=== PATIENT | male | born 1970 | race Caucasian/White ===

== ENCOUNTER 2016-12-25 07:27 | Inpatient (IN) | payer OTHER ==
[2016-12-25] MEDS ORDERED: ASPIRIN EC 325 MG TAB PO ONE ×2 (07:31→07:52)
[2016-12-25] MEDS ORDERED: diphenhydrAMINE 25 MG CAP PO ONE ×2 (07:31→07:52)
[2016-12-25] MEDS ORDERED: DIAZEPAM 5 MG TAB PO ONE (07:31)
[2016-12-25] MEDS ORDERED: FAMOTIDINE 20 MG TAB PO ONE (07:31)
[2016-12-25] MEDS ORDERED: NS 1,000 ML IV ONE (07:31)
--- NOTE | 2016-12-25 07:48 | CPEKG ---
Heart Rate: 62 RR Interval: 968 P-R Interval: 196 QRSD Interval: 114 QT Interval: 408 QTC Interval: 415 P [place]: 22 QRS [place]: -5 T Wave [place]: 34 EKG Severity - ABNORMAL ECG - EKG Impression: SINUS ARRHYTHMIA, RATE 52-69 EKG Impression: INCOMPLETE RIGHT BUNDLE BRANCH BLOCK Electronically Signed By: Joseph Gandhi 25-Dec-2016 13:48:06
[2016-12-25] MEDS ORDERED: FAMOTIDINE 20 MG TAB ONE (07:52)
[2016-12-25] MEDS ORDERED: DIAZEPAM 5 MG TAB ONE (07:53)
[2016-12-25 08:07] LABS: % IMMATURE GRANULYOCYTES 0.1 % (0.0-1.1); ABSOLUTE IMMATURE GRANULOCYTES 0.01 10^3/uL (0.00-0.10); ADD DIFF? NO; ADD MORPH? NO; ADD SCAN? NO; ATYPICAL LYMPHOCYTE FLAG 10 (0-99); FRAGMENT RBC FLAG 0 (0-99); HEMATOCRIT 45.7 % (40.0-51.0); LEFT SHIFT FLG 0 (0-99); LIPEMIA HEMOLYSIS FLAG 90 (0-99); MEAN CELL HEMOGLOBIN 30.3 pg (27.9-34.1); MEAN CELL VOLUME 86.6 fL (81.5-99.8); MEAN PLATELET VOLUME 9.6 fL (8.7-11.7); PLATELET CLUMPS FLAG 0 (0-99); PLATELET COUNT 212 10^3/uL (150-400); RED BLOOD CELL COUNT 5.28 10^6/uL (4.40-6.38); RED CELL DISTRIBUTION WIDTH 12.4 % (11.5-15.2)
[2016-12-25 08:14] LABS: INR 1.03 (0.83-1.16); PROTIME(PATIENT) 13.4 SEC (12.0-15.0)
[2016-12-25 08:29] LABS: ANION GAP 12 mEq/L (8-16); CALCIUM 9.6 mg/dL (8.5-10.4); CARBON DIOXIDE 23 mEq/l (22-31); CHLORIDE 107 mEq/L (97-110); CHOLESTEROL 211 mg/dL (140-200); CHOLESTEROL/HDL RATIO 5.55 RATIO (1.00-4.97); CREATININE 0.9 mg/dL (0.7-1.3); GLOMERULAR FILTRATION RATE > 60; GLUCOSE 110 mg/dL (70-100); HIGH DENSITY LIPOPROTEIN 38 mg/dL (40-65); LDL/HDL RATIO 3.61 RATIO (1.00-3.64); LOW DENSITY LIPOPROTEIN 137 mg/dL (70-100); MAGNESIUM 2.1 mg/dL (1.6-2.3); NON-HIGH DENSITY LIPOPROTEIN 173 mg/dL (90-129); POTASSIUM 4.9 mEq/L (3.5-5.2); SODIUM 142 mEq/L (134-144); TRIGLYCERIDE 183 mg/dL (40-150); VERY LOW DENSITY LIPOPROTEINS 36 mg/dL (8-25)
[2016-12-25] MEDS ORDERED: VERAPAMIL 5 MG/2 ML VIAL ONE (09:08)
[2016-12-25] MEDS ORDERED: IOPAMIDOL (ISOVUE-370) 150 ML BTL IV ONE ×2 (09:08→09:49)
[2016-12-25] MEDS ORDERED: HEPARIN 10,000 UNIT/10 ML MDV ONE (09:08)
[2016-12-25] MEDS ORDERED: MIDAZOLAM 2 MG/2 ML VIAL ONE (09:08)
[2016-12-25] MEDS ORDERED: fentaNYL 100 MCG/2 ML INJ ONE (09:08)
[2016-12-25] MEDS ORDERED: LIDOCAINE 1% 30 ML SDV ONE ×2 (09:08→09:23)
--- NOTE | 2016-12-25 09:23 | PDDXCAT ---
Diagnostic Cath Note - . Date: 12/25/16 Intervention: none *Procedure 1. selective coronary angiography 2. left heart catheterization 3. left ventriculogram Indication: CCS Class III angina, high-risk stress test, NYHA III symptoms. Access: Right radial artery (a plethysmography trace assisted Espinoza's Test was used to document dual artery supply to the hand and index finger prior to access ). *Materials Left Heart Cath size: 5F Left Heart Cath materials: JL3.5, JR4.0, Gallo Right, AL1, pigtail *Findings-Selective Coronary Angiography LM: The left main is ~6 mm in size and bifurcates into an LAD and circumflex system. There is no significant disease identified. LAD: The proximal LAD is ~5 mm in size. There is a 99% stenosis of the LAD and LAD diagonal with CELESTINA III flow. LCX: There is no evidence of flow-limiting disease with CELESTINA III flow throughout. RCA: The right coronary artery is ~3 mm in size and arises anomalously and anteriorly. There are right to left collaterals to the proximal LAD. Maximal luminal stenosis of 30% in the proximal vessel and 80% in the mid RCA with CELESTINA III flow. *Findings-Left Heart Catheterization EDP: 25 mmHg LVEF: 50% AO: 132/91/109 mmHg LVG: There is mild anterior hypokinesis. The sinus of Valsalva are enlarged consistent with aneurysm. There is no zaid evidence of dissection. There is moderate MR on pressurized injection likely related to the position of the catheter. *Summary Complications: None Estimated blood loss: <50ml Closure method: TR Band Assessment/Conclusion: 1. Severe and flow-limiting multi-vessel coronary artery disease including 99% stenosis of the LAD and first LAD diagonal and 80% mid RCA lesions. The patient should have formal consultation with Dr. Barragan to discuss the risk/benefit of a bypass surgery with REED-LAD, rSVG-Diagonal and rSVG to RCA. 2. Incidentally noted was enlarged sinus of Valsalva that may be consistent with aneurysm. I have ordered a CT thoracic angiogram with 3D reconstruction for further evaluation. An echocardiogram revealed a thoracic aortic aneurysm at 4.5 cm with a bicuspid aortic valve. There was no evidence of aortic stenosis , insufficiency or mitral valve pathology. 3. There was mitral regurgitation that was likely catheter induced or secondary to pressurized injection. There was no significant mitral regurgitation on echo. 4. The patient should have the aortic root replaced at minimum if confirmed to be above 4.5. Consider reducing the size of the sinus of Valsalva as well.
--- NOTE | 2016-12-25 14:46 | ECHO ---
[id number] + + [address] : : [place] [address] : : [phone] + + Adult Echocardiographic Report + ------+ :Name: ANTWAN MANUEL JStudy Date: 12/25/2016 01:50 PM : : Hospital Admission Number: [id number] Jaime n: KAIC: :: 1970 Gender: Male : :Age: 46 yrs Race: WH : :Reason For Study: Chest Pain : + ------+ MMode/2D Measurements \T\ Calculations IVSd: 1.2 cm LVIDd: 4.7 cm FS: 41.2 % Ao root diam: LVPWd: 1.2 cm LVIDs: 2.7 cm EDV(Teich): 4.2 cm 100.8 ml ESV(Teich): 28.2 ml EF(Teich): 72.0 % LVLd ap4: 8.3 cm SV(MOD-sp4): EDV(MOD-sp4): 57.0 ml 80.0 ml LVLs ap4: 7.0 cm ESV(MOD-sp4): 23.0 ml EF(MOD-sp4): 71.3 % Normal Measurement Values: + + :LVIDd (3.5-5.7cm) IVSd (0.6-1.1cm) LVPWd (0.6-1.1cm) Aortic Root (2.0-3.7cm)Left Atrium (1.5-4.0cm): :LV Vol(d) (76-115ml) LV Vol(s) (29-48ml) Ejec Fraction (50-65%)PV Navi (0.6- 1.2m/s) TV Navi (0.4-1.0m/s) : :MV E Navi (0.8-1.0m/s)MV A Navi (0.3-1.0m/s)LVOT Navi (0.7-1.2m/s) Asc Ao Navi ( 0.9-1.8m/s) : + + Doppler Measurements \T\ Calculations MV E max navi: 72.1 cm/sec Ao mean P.8 mmHg MV A max navi: 50.3 cm/sec Ao V2 mean: 92.9 cm/sec MV E/A: 1.4 Ao V2 VTI: 27.5 cm Left Ventricle The left ventricle is normal in size and function. There is normal left ventricular wall thickness. Left ventricular systolic function is normal. Ejection Fraction = 65-70%. No regional wall motion abnormalities noted. Right Ventricle The right ventricle is normal in size and function. Atria The left atrial size is normal. Right atrial size is normal. The interatrial septum is intact with no evidence for an atrial septal defect. Mitral Valve The mitral valve is normal in structure and function. There is no evidence of mitral valve prolapse. There is no mitral valve stenosis. There is trace mitral regurgitation. Tricuspid Valve Normal tricuspid valve. There is trace to mild tricuspid regurgitation. Aortic Valve The aortic valve is bicuspid. AV max PG is 7mmHG. AV mean PG is 4mmHG. Pulmonic Valve The pulmonic valve is normal in structure and function. There is no pulmonic valvular regurgitation. Great Vessels Moderate aortic root dilatation. Moderately dilated ascending aorta. Pericardium/Pleural There is no pericardial effusion. Conclusion A complete two-dimensional transthoracic echocardiogram was performed (2D, M-mode, Doppler and color flow Doppler). The left ventricle is normal in size and function. Left ventricular systolic function is normal. Ejection Fraction = 65-70%. There is trace mitral regurgitation. There is trace to mild tricuspid regurgitation. The aortic valve is bicuspid. AV max PG is 7mmHG. AV mean PG is 4mmHG. aortic root dilatation. Moderate aortic root dilatation. Moderately dilated ascending aorta. Recommend CT of the aorta with 3 dimensional reconstruction to evaluate size prior to planned bypass surgery. Final Reading Physician: Maykel Estrada signed on 12/25/2016 02:45 PM Ordering Physician: Joseph Gandhi Performed By: Camila Child RDCS
--- NOTE | 2016-12-25 16:36 | GCON ---
[f rep st] CONSULTATION The patient was seen at the request of Dr. Gandhi with the patient's permission. IMPRESSION: 1. Unstable angina with severe 3-vessel disease. 2. Bicuspid aortic valve with aortopathy. RECOMMENDATIONS: This gentleman should undergo urgent coronary artery revascularization preferably with arterial conduits, which will be scheduled for morning. He was noted to have a 4.7 cm ascendin g aorta on echo. This will be confirmed with CT. His sinuses are somewhat enlarged. We will evalu ate that for either a Rigoberto procedure or just a tube graft from the sinotubular junction. His bicus pid valve has a gradient of 7 and has no regurgitation and it actually looks quite pliable and very functional. Risks and complications were reviewed at length with the patient and his . All que stions were addressed. Quoted mortality was less than 1%. All of the risks for consent were review ed, including stroke, bleeding, infection and . CHIEF COMPLAINT: This gentleman presented with what was initially thought to be pleuritic pain; how ever, he developed angina with 4 step elevation. He underwent a stress test which was markedly abno rmal and underwent urgent coronary catheterization by Dr. Gandhi with 3-vessel disease. Please see cath report. He was referred for surgical intervention. CT scan is pending. MEDICAL HISTORY: Positive only for appendectomy, shoulder surgery. ALLERGIES: Denied. MEDICATIONS: None on admission. SOCIAL HISTORY: He does not smoke. 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 REVIEW OF SYSTEMS: At the present time, he denies any other symptoms. All 10 systems interrogated. PHYSICAL EXAMINATION: GENERAL: This is a slightly overweight young gentleman lying supine in bed i n no apparent distress. Alert, oriented and accompanied by his . VITAL SIGNS: 120/80, pulse 7 6, respirations 14, O2 saturation was 93% on room air. HEENT: Normocephalic. PERRLA. EOMI. NECK : Without bruit, adenopathy or thyromegaly. HEART: Rate is regular. LUNGS: Clear. He does have a 2/6 systolic ejection murmur across the precordium. ABDOMEN: Soft, nontender. Bowel sounds are active. EXTREMITIES: Pedal pulses are 2+ and symmetrical. Please see the cath report for details. /[id number]/MODL
[2016-12-25 16:46] LABS: HEMOGLOBIN A1C 5.5 % (4.0-6.0)
[2016-12-25] MEDS ORDERED: IOPAMIDOL (ISOVUE 370) 100 ML BTL IV ONE (17:55)
[2016-12-25] MEDS: MUPIROCIN 2% 22 GM OINT NS SCH (22:35)
[2016-12-26 04:51] LABS: ANION GAP 10 mEq/L (8-16); CALCIUM 9.3 mg/dL (8.5-10.4); CARBON DIOXIDE 24 mEq/l (22-31); CHLORIDE 107 mEq/L (97-110); CREATININE 0.9 mg/dL (0.7-1.3); GLOMERULAR FILTRATION RATE > 60; GLUCOSE 105 mg/dL (70-100); POTASSIUM 4.3 mEq/L (3.5-5.2); SODIUM 141 mEq/L (134-144)
[2016-12-26] MEDS ORDERED: NOREPINEPHRINE BITARTRATE 16 MG in NS 250 ML IV ONE (06:00)
[2016-12-26] MEDS ORDERED: NS 1,000 ML IV ONE (06:00)
[2016-12-26] MEDS ORDERED: SODIUM BICARBONATE 20 MEQ, LIDOCAINE 1% 10 ML in NORMOSOL-R 1,000 ML MISC ONE (06:00)
[2016-12-26] MEDS ORDERED: ceFAZolin 2 GM/DEXTROSE 100 ML IV ONE (06:00)
[2016-12-26] MEDS ORDERED: CITRATE DEXTROSE SOLN 500 ML BAG MISC ONE (06:00)
[2016-12-26] MEDS ORDERED: PHENYLEPHRINE HCL 50 MG in NS 250 ML IV ONE (06:00)
[2016-12-26] MEDS ORDERED: INSULIN REGULAR HUMAN 100 UNIT in NS 100 ML IV ONE (06:00)
[2016-12-26] MEDS ORDERED: AMINOCAPROIC ACID 5 GM/20 ML VIAL IV ONE (06:00)
[2016-12-26] MEDS ORDERED: niCARdipine/NACL 200 ML IV SCH (06:00)
[2016-12-26] MEDS ORDERED: VERAPAMIL 5 MG, NITROGLYCERIN 2.5 MG, HEPARIN 500 UNIT, SODIUM BICARBONATE 0.2 MEQ in L... MISC ONE (06:00)
[2016-12-26] MEDS ORDERED: CHLORHEXIDINE GLUC HIBICLENS 118 ML BTL TP SCH (06:00)
[2016-12-26] MEDS ORDERED: MUPIROCIN 2% 22 GM OINT NS ONE (06:00)
[2016-12-26] MEDS ORDERED: MANNITOL 25% 12.5 GM/50 ML VIAL IV ONE (06:00)
[2016-12-26] MEDS ORDERED: PROTAMINE SULFATE 50 MG/5 ML VIAL IVP ONE ×2 (06:38→12:18)
[2016-12-26] MEDS ORDERED: POTASSIUM Cl (KCl) 20 MEQ/50 ML BAG IV ONE (06:38)
[2016-12-26] MEDS ORDERED: MILRINONE/DEXTROSE/100 ML BAG IV ONE (06:38)
[2016-12-26] MEDS ORDERED: ALBUMIN 5% 250 ML BOTTLE IV ONE ×2 (06:38→15:02)
[2016-12-26] MEDS ORDERED: AMINOCAPROIC ACID 5 GM/20 ML VIAL ONE (06:38)
[2016-12-26] MEDS ORDERED: CALCIUM CHLORIDE 1 GM/10 ML INJ ONE (06:38)
[2016-12-26] MEDS ORDERED: LIDOCAINE 2% 100 MG/5 ML SYR ONE (06:39)
[2016-12-26] MEDS ORDERED: ceFAZolin 1 GM VIAL ONE (06:39)
[2016-12-26] MEDS ORDERED: HEPARIN 10,000 UNIT/10 ML MDV ONE (06:39)
[2016-12-26] MEDS ORDERED: CITRATE DEXTROSE SOLN 500 ML BAG ONE (06:39)
[2016-12-26] MEDS ORDERED: DOPamine/DEXTROSE/250 ML BAG IV ONE (06:39)
[2016-12-26] MEDS ORDERED: ADENOSINE 6 MG/2 ML VIAL ONE (06:39)
[2016-12-26] MEDS ORDERED: AMIODARONE HCL 150 MG/3 ML VIAL ONE (06:39)
[2016-12-26] MEDS ORDERED: NA BICARBONATE 50 MEQ/50 ML VIAL ONE (06:39)
[2016-12-26] MEDS ORDERED: niCARdipine/NACL/200 ML BAG IV ONE (06:39)
[2016-12-26] MEDS ORDERED: MAGNESIUM SULFATE 1 GM/2 ML VIAL ONE (06:39)
[2016-12-26] MEDS ORDERED: methylPREDNISolone SOD SUCC 1 GM/8 ML VIAL ONE (06:39)
[2016-12-26] MEDS ORDERED: fentaNYL 100 MCG/2 ML INJ ONE ×7 (08:22→15:57)
[2016-12-26] MEDS ORDERED: PROPOFOL 200 MG/20 ML VIAL ONE (08:23)
[2016-12-26] MEDS: MUPIROCIN 2% 22 GM OINT NS SCH ×2 (09:32→23:39)
[2016-12-26] MEDS ORDERED: CEFAZOLIN 2 GM/DEXTROSE/100 ML BAG IV ONE (10:07)
[2016-12-26] MEDS ORDERED: LR 1,000 ML IV ONE ×2 (10:13→11:45)
[2016-12-26] MEDS ORDERED: LIDOCAINE 1% 5 ML SDV ID PRN (11:45)
[2016-12-26] MEDS ORDERED: MIDAZOLAM 2 MG/2 ML VIAL ONE ×3 (12:36→15:58)
[2016-12-26] MEDS ORDERED: VERAPAMIL 5 MG/2 ML VIAL ONE (12:55)
[2016-12-26] MEDS ORDERED: PAPAVERINE HCL 60 MG/2 ML SDV ONE (12:55)
[2016-12-26] MEDS ORDERED: ROCURONIUM 100 MG/10 ML VIAL ONE (13:17)
[2016-12-26] MEDS ORDERED: epHEDrine SULFATE 10 MG/ML SYR ONE (13:28)
[2016-12-26] MEDS ORDERED: MAGNESIUM SULF 2 GM/WATER 50 ML BAG IV ONE (15:02)
[2016-12-26] MEDS ORDERED: NITROGLYCERIN/D5W 50 MG/250 ML BOTTLE IV ONE (18:07)
[2016-12-26] MEDS ORDERED: PROPOFOL/EMULSION 500 MG/50 ML BOTTLE IV ONE (18:21)
[2016-12-26] MEDS ORDERED: ROCURONIUM 50 MG/5 ML VIAL ONE (18:21)
[2016-12-26] MEDS ORDERED: MINERAL OIL 10 ML VIAL ONE (18:23)
[2016-12-26] MEDS ORDERED: MAGNESIUM SULF 2 GM/WATER 50 ML IV ONE (18:56)
[2016-12-26] MEDS ORDERED: POTASSIUM Cl (KCl) 50 ML IV PRN (18:56)
[2016-12-26] MEDS ORDERED: HYDROCODONE/APAP 5/325 TAB PO PRN (18:56)
[2016-12-26] MEDS ORDERED: BISACODYL 10 MG SUPP PR PRN (18:56)
[2016-12-26] MEDS ORDERED: POLYETHYLENE GLYCOL 3350 17 GM PKT PO PRN (18:56)
[2016-12-26] MEDS ORDERED: ACETAMINOPHEN 325 MG TAB PO PRN (18:56)
[2016-12-26] MEDS ORDERED: D50W 25 GM/50 ML SYR IVP PRN (18:56)
[2016-12-26] MEDS ORDERED: MAGNESIUM HYDROXIDE 30 ML UDCUP PO PRN (18:56)
[2016-12-26] MEDS ORDERED: ONDANSETRON DISINTEGRATING 4 MG TAB PO PRN (18:56)
[2016-12-26] MEDS ORDERED: LACTULOSE 20 GM/30 ML UDCUP PO PRN (18:56)
[2016-12-26] MEDS ORDERED: ONDANSETRON 4 MG/2 ML VIAL IVP PRN (18:56)
[2016-12-26] MEDS ORDERED: ALBUMIN 5% 250 ML IV PRN (18:56)
[2016-12-26] MEDS ORDERED: SODIUM CL NASAL 45 ML BTL EACHNARE PRN (18:56)
[2016-12-26] MEDS ORDERED: METOCLOPRAMIDE 10 MG/2 ML VIAL IVP PRN (18:56)
[2016-12-26] MEDS ORDERED: PANTOPRAZOLE SODIUM 40 MG in NS 100 ML IV ONE (18:56)
[2016-12-26] MEDS ORDERED: MEPERIDINE 25 MG/ML SYR IVP PRN (18:56)
[2016-12-26] MEDS ORDERED: CEPACOL LOZENGE PO PRN (18:56)
[2016-12-26] MEDS ORDERED: INSULIN REGULAR HUMAN 100 UNIT in NS 100 ML IV SCH (19:00)
[2016-12-26] MEDS ORDERED: NS 1,000 ML IV SCH (19:00)
--- NOTE | 2016-12-26 19:01 | POSTOPPROG ---
Post Op Note Date of Operation: 12/26/16 Surgeon: Rolando Barragan Hydraulic Plumber Helper: Oringmckenzie Anesthesia: GET(General Endotracheal) Pre-op Diagnosis: aortic root aneurysm, bicuspid valve, USA, ASHD Procedure: aortic root replacement #27 Magna, #31 graft, Burgos-Lad,Sherrie-Dg, Lradial=PDA Inf/Abcess present in the surg proc area at time of surgery?: No EBL: 100-500 Drains: Other (3 blakes)
[2016-12-26] MEDS ORDERED: NITROGLYCERIN/DEXTROSE 250 ML IV SCH (19:30)
--- NOTE | 2016-12-26 19:40 | GOP ---
[f rep st] OPERATIVE REPORT DATE OF OPERATION: 12/26/2016 SURGEON: Rolando Barragan DO MEAT STRINGER: Weston Recinos PA-C and TRIPP Rosas PREOPERATIVE DIAGNOSIS: 1. Unstable angina with severe 2-vessel disease. 2. Aortic root and ascending aortic aneurysm with true bicuspid valve. POSTOPERATIVE DIAGNOSIS: PROCEDURE PERFORMED: 1. Coronary artery bypass grafting x3 with all arterial conduits with a left internal mammary artery to the LAD, right internal mammary artery to the diagonal via the transverse sinus. Left radial artery to the posterior descending artery. 2. Aortic root replacement with a #27 Magna bioprosthesis and a #31 mm Hemashield graft. 3. Ligation of left atrial appendage. 4. [place] of left radial artery. FINDINGS: The patient was noted to have a high-grade LAD bifurcating lesion with a large diagonal. He was also noted to have markedly enlarged sinuses measuring 5.[address] scan with a 4.7 cm ascending aorta. He is noted to have a true bicuspid valve on echo without valvular pathology. The aorta was healthy above the STJ w/o plaque, where it measured 27mm. He was consented for surgery. The initial discussion was that if the sinuses were truly that large, we do a Rigoberto procedure with reimplantation of his bicuspid valve as suitable. Otherwise, we just replaced the ascending aorta and do the bypass grafts with arterial conduits. He was brought to the operating room, intubated, and monitoring lines were placed. The left radial artery was harvested by Catie Lan and Duncan Recinos utilizing a Harmonic Scalpel. Preoperative testing revealed adequate ulnar flow to the thumb and with clamping of the artery both proximally and distally before removing it, there maintained good pulsatile flow in the palmar arch and oximetry of the thumb. This was harvested. It was an excellent 3.5 to 4 mm vessel. The branches were individually clipped. Simultaneously, both mammaries were harvested. They were 2.5 mm vessels with brisk flow. We then heparinized the patient, opened the pericardium. The aortic root aneurysm extended to mid-ascending aorta where it tapered down to 3 cm. It was predominantly in the aorta aortic root and just above the sinotubular junction. He was cannulated in the transverse arch with a long cannula in thDTA to avoid any arch ds. and right atrium. Test flow in aorta revealed expected pressures. Cardiopulmonary bypass was begun. Cardioplegic arrest was attained with antegrade cardioplegia, retrograde cardioplegia, topical hypothermia and systemic cooling. Initially, the right internal mammary artery was brought via a lateral pericardial incision above the phrenic nerve in the transverse sinus and grafted to the proximal diagonal without tension or difficulty. It was tacked to the epicardium. I then grafted the LAD with the left internal mammary artery through the transverse sinus, again, tacked to the epicardium without difficulty. The left radial artery was grafted to the PDA in the proximal portion where there was a 2 mm vessel and left in the pericardial well. I then doubly ligated a very thin, very small left atrial appendage free of thrombus on BEBETO, flush with the left atrium utilizing silk ties. We then exposed the aorta. We excised the aorta from the innominate artery down to the sinotubular junction and evaluated the valve. The valve was enormous in size. A 31 mm mitral prosthetic ring easily fit through the anulus of the valve and I felt because of its true bicuspid nature and the marked displacement of the coronary arteries that a Rigoberto procedure would be extremely difficult to get adequate coaptation of the leaflet edges. There was some fenestrations to the margins of the leaflet and there was some thickening and calcification along the anulus. Despite its relatively normal functioning valve, I did not feel I would be able to safely get excellent coaptation and that markedly abnormal pathology with a nominal 6 cm sinus. For that reason, I elected to do a 27 mm Magna valve inside a 31 mm Hemashield graft, aortic root replacement with interrupted 2-0 Tycron pledgeted mattress sutures, utilizing CO2 and LV irrigation w the LV sump off for any debris. The coronary buttons with the coronary ostia were reanastomosed to the graft. An end-to-side anastomosis was completed to the aorta w/o difficulty. I then brought the radial artery off the proximal portion of the remaining aorta , just before the arch, without difficulty. The cross-clamp was removed with suction on the ascending aortic vent and LV sump. When no further air was identified, the patient was easily weaned from bypass. Transesophageal echo revealed good valvular function, good ventricular function. The EKG remained normal. The heparin was reversed with protamine. The cannula was removed and oversewn. Four pacing wires, 2 pleural, 1 mediastinal drain were placed. The thymic fat and pericardium were closed. Chest was closed in standard fashion. The patient was returned to ICU in stable condition. DESCRIPTION OF PROCEDURE: /[id number]/MODL MTDD
[2016-12-26] MEDS ORDERED: NALOXONE HCL 0.4 MG/ML INJ ONE (21:00)
[2016-12-26] MEDS ORDERED: PROPOFOL/EMULSION 1,000 MG/100 ML BOTTLE IV ONE (21:41)
[2016-12-26] MEDS: ceFAZolin 2 GM/DEXTROSE 100 ML IV SCH (22:57)
[2016-12-26] MEDS: SENNOSIDES/DOCUSATE SODIUM TAB PO SCH (22:58)
[2016-12-26] MEDS: PROPOFOL/EMULSION 100 ML IV SCH (23:52)
[2016-12-27] MEDS ORDERED: ALBUMIN 5% 250 ML IV ONE (01:30)
[2016-12-27 05:09] LABS: % IMMATURE GRANULYOCYTES 0.5 % (0.0-1.1); ABSOLUTE IMMATURE GRANULOCYTES 0.07 10^3/uL (0.00-0.10); ADD DIFF? NO; ADD MORPH? NO; ADD SCAN? NO; ATYPICAL LYMPHOCYTE FLAG 0 (0-99); FRAGMENT RBC FLAG 0 (0-99); HEMATOCRIT 31.4 % (40.0-51.0); HEMOGLOBIN 10.8 g/dL (13.7-17.5); LEFT SHIFT FLG 80 (0-99); LIPEMIA HEMOLYSIS FLAG 90 (0-99); MEAN CELL HEMOGLOBIN 30.6 pg (27.9-34.1); MEAN CELL HEMOGLOBIN CONCENTR. 34.4 g/dL (32.4-36.7); MEAN PLATELET VOLUME 9.6 fL (8.7-11.7); PLATELET CLUMPS FLAG 0 (0-99); PLATELET COUNT 117 10^3/uL (150-400); RED BLOOD CELL COUNT 3.53 10^6/uL (4.40-6.38); RED CELL DISTRIBUTION WIDTH 12.9 % (11.5-15.2)
[2016-12-27 05:25] LABS: ANION GAP 7 mEq/L (8-16); CALCIUM 8.1 mg/dL (8.5-10.4); CARBON DIOXIDE 24 mEq/l (22-31); CHLORIDE 111 mEq/L (97-110); CREATININE 0.9 mg/dL (0.7-1.3); GLOMERULAR FILTRATION RATE > 60; GLUCOSE 100 mg/dL (70-100); POTASSIUM 4.3 mEq/L (3.5-5.2); SODIUM 142 mEq/L (134-144)
[2016-12-27] MEDS: HEPARIN 5,000 UNIT/0.5 ML SYR SC SCH ×3 (05:32→22:46)
[2016-12-27] MEDS: ceFAZolin 2 GM/DEXTROSE 100 ML IV SCH ×3 (05:32→22:46)
--- NOTE | 2016-12-27 07:36 | SOAPPROG ---
SOAP Progress Note Assessment/Plan: POD #1: CABGx3 (REED-LAD, RANJANA-diag, LRA-PDA), aortic root replacement with #27 Magna bioprosthesis in a #31 Hemashield conduit, ligation YUE, open harvest left radial artery Unstable angina s/p CABGx3 with arterial grafts - ASA, BB and statin when appropriate for secondary prevention - Continue nitro gtt for radial graft patency with conversion to oral CCB x 3 months - CTs to remain on suction, AL/FC to remain Aortic root and ascending aortic aneurysm with BAV s/p aortic root replacement with #27 Magna bioprosthesis in a #31 Hemashield conduit - ASA for thromboprophylaxis Acute blood loss anemia - No blood product transfusion necessary, monitor H/H Left hemiparesis with LUE fasciculations - Opens eyes spontaneously and follows commands, however, left-side paretic - CT head negative for acute CVA - Neuro consult pending - Vent weaning in progress Subjective: Follows commands. Denies pain. Objective: Vital Signs Temp Pulse Resp BP Pulse Ox 37.1 C 86 19 93/58 L 100 12/27/16 05:00 12/27/16 07:02 12/27/16 07:02 12/27/16 07:02 12/27/16 07:02 Laboratory Results 12/27/16 04:45 12/27/16 04:45 12/26/16 12/27/16 12/28/16 05:59 05:59 05:59 Intake Total 1400 1260 Output Total 1410 Balance 1400 -150 PT 13.4 SEC (12.0-15.0) 12/25/16 07:50 INR 1.03 (0.83-1.16) 12/25/16 07:50 Physical Exam - Physical Exam General Appearance: no apparent distress EENT: ET tube Neck: normal inspection Respiratory: No respiratory distress Cardiac/Chest: regular rate, rhythm Abdomen: non-tender, soft, No distended Skin: normal color, warm/dry Extremities: No pedal edema Neuro/Psych: motor weakness (left-sided), sensory deficit (left-sided), other ( Follows commands, opens eyes spontaneously) ICD10 Worksheet Patient Problems: Problems Problem Status Onset Hemiparesis Acute S/P AVR Acute S/P CABG x 3 Acute S/P aortic aneurysm repair Acute Unstable angina pectoris Acute Aortic aneurysm Chronic Bicuspid aortic valve Chronic
[2016-12-27] MEDS: SENNOSIDES/DOCUSATE SODIUM TAB PO SCH ×2 (07:47→23:05)
[2016-12-27] MEDS: ACETAMINOPHEN 650 MG SUPP PR PRN (07:48)
[2016-12-27] MEDS: MUPIROCIN 2% 22 GM OINT NS SCH ×2 (07:48→21:45)
--- NOTE | 2016-12-27 09:31 | GCON ---
[f rep st] CONSULTATION EVENT ATTENDANT CONSULTATION The patient is examined postoperatively after receiving his coronary bypass graft and aortic valve r eplacement. HISTORY OF PRESENT ILLNESS: The patient is a 46-year-old white male with past medical history of co ronary artery disease. He is followed by Dr. Gandhi. He underwent coronary catheterization, which showed 3-vessel disease. Upon presentation to the intensive care unit, he was found to be not movin g his left side. He underwent CT scan of the head, which was normal. He has continued to not move his left side. Neurology has been consulted. The patient is still sedated and on mechanical ventil ation. PAST MEDICAL HISTORY: None. PAST SURGICAL HISTORY: He had an appendectomy and shoulder surgery. ALLERGIES: No known allergies to medications. SOCIAL HISTORY: No history of tobacco use. Infrequent alcohol use. 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 MEDICATIONS: Medications at home are none. LABORATORIES: White count is 12.8, hemoglobin 10, hematocrit 31, platelet count is 117. Sodium 142 , potassium 4.3, chloride 111, CO2 is 24, BUN 14, creatinine 0.9, glucose is 100. CT scan of the chest shows an ascending aortic aneurysm at 4.5 x 4.5 cm. There is some scarring in both lungs. Chest x-ray I reviewed by myself, dated December 27, 2016, shows endotracheal tube in good position, othe rwise clear. IMPRESSION: 1. Coronary artery disease. 2. Ascending aortic aneurysm. 3. Respiratory failure, stable on mechanical ventilation. 4. Possible stroke. RECOMMENDATIONS: 1. We will continue mechanical ventilation for now. 2. Neurology to see the patient. 3. Adequate pain control. 4. Adequate sedation. 5. DVT/PE prophylaxis, holding anticoagulation for now. 6. Stress ulcer prophylaxis. /[id number]/MODL
--- NOTE | 2016-12-27 11:12 | GCON ---
[f rep st] CONSULTATION NEUROLOGIC CONSULTATION. DATE OF CONSULTATION: 12/27/2016 REFERRING PHYSICIAN: Rolando Barragan DO HISTORY: The patient is a 46-year-old gentleman who I am asked to see in neurologic consultation re garding acute development of left-sided weakness postop from aortic root repair as well as bypass fo r unstable angina. The patient is currently intubated and unable to provide any verbal history, but when I talked to Dr. Barragan he explained that the patient had an uncomplicated surgery with no acute episodes of hypotension, but then was noted to have the left-sided weakness yesterday and had an [facility] head CT that was unremarkable. He continues to have no movement in the left arm and left leg on a voluntary basis, but there is intermittent brief muscle twitches in the left upper extremity. He spontaneously moves the right side purposefully. Prior to this, the patient has never had any [facility] neurologic problems. SOCIAL HISTORY: No smoking. He has rare alcohol. ALLERGIES: No allergies. MEDICATIONS: He was not on any regular medications prior to admission. PAST SURGICAL HISTORY: He has had a prior history of an appendectomy and shoulder surgery. CARDIAC HISTORY: He was seen by Dr. Gandhi on the for his cardiac catheterization that showed severe flow-limiting multivessel coronary disease including 99% stenosis of the left anterior descen ding artery and 1st LAD diagonal with 80% of the mid right RCA. He had echocardiogram showing good ejection fraction. There was dilatation at the aortic root level . He subsequently had a CTA of the chest and thorax showing an ascending aortic aneurysm of 4.5 x 4 .5 cm with no dissection. He had carotid ultrasound on December 25 showing no hemodynamically signific ant stenoses. PHYSICAL EXAM: VITAL SIGNS: Blood pressure 97/60, pulse of 94, respirations 20, temperature 37.2. GENERAL: He is lying in the bed, intubated, and a little bit restless as the propofol wears off, s pontaneously moving his right side with spontaneous eye opening. CARDIAC: Regular rate and rhythm. No carotid bruits. NEUROLOGICAL: He will open the eyes to voice or sometimes spontaneously as th e sedation wears off. He will follow my commands on the right side to squeeze with the right hand, though he is not wiggling the right foot to command. He still has some spontaneous movement there i ntermittently. He does not voluntarily move the left side. He has occasional brief myoclonic jerks in the left upper extremity approximately every 1 or 2 minutes with a couple of brief contractions of the arm, but not the face or leg. Pupils are 3 mm and reactive. Extraocular movements are intac t. He will close his eyes to command. It is difficult to detect definite facial asymmetry. He was able to stick out his tongue. He clearly hears this in that he can follow some commands on the rig ht side. Sensation is unreliable for detail testing, but he localizes to touch on the right. Refle xes 2+ with no response to plantar stimulation on the left. DIAGNOSTIC STUDIES: As outlined above. IMPRESSION: The patient has developed a left hemiparesis following cardiac surgery with suspected r ight hemisphere stroke. It is unclear at this stage whether it is cortical or subcortical, and the actual size of the stroke, but we will do some followup imaging when he is stable enough to further characterize the pathology and help with prognosis. I had a good discussion with the patient's and family friend, and they understand the situation and our plan for continued monitoring. I also spoke to Dr. Barragan following seeing the patient and reviewed the case as well. The NIH stroke scale would be estimated at 10. /[id number]/MODL
[2016-12-27] MEDS: PROPOFOL/EMULSION 100 ML IV SCH (11:57)
[2016-12-27 12:45] LABS: POTASSIUM 4.1 mEq/L (3.5-5.2)
[2016-12-27] MEDS: ASPIRIN 81 MG CHEWABLE TAB PO SCH ×2 (14:48→18:25)
[2016-12-27 16:18] LABS: CALCULATED OXYGEN SATURATION 91 % (92-95); O2 CONCENTRATIION 40 % (0-100)
[2016-12-27 16:18] LABS: CALCULATED OXYGEN SATURATION 98 % (92-95); O2 CONCENTRATIION 80 % (0-100)
[2016-12-27 17:39] LABS: POTASSIUM 4.3 mEq/L (3.5-5.2)
[2016-12-27] MEDS ORDERED: FAMOTIDINE 20 MG/NACL 50 ML IV SCH (18:00)
[2016-12-27] MEDS: FAMOTIDINE 20 MG/NACL 50 ML IV SCH (18:08)
[2016-12-27] MEDS ORDERED: PANTOPRAZOLE SODIUM 40 MG TAB PO SCH (18:56)
[2016-12-27] MEDS: SENNOSIDES 17.6 MG/10 ML UDL - IF LIQUID ORDERED TUBE SCH (23:05)
[2016-12-28 01:01] LABS: POTASSIUM 4.4 mEq/L (3.5-5.2)
[2016-12-28 05:26] LABS: HEMATOCRIT 30.8 % (40.0-51.0); HEMOGLOBIN 10.5 g/dL (13.7-17.5); MEAN CELL HEMOGLOBIN 30.3 pg (27.9-34.1); MEAN CELL HEMOGLOBIN CONCENTR. 34.1 g/dL (32.4-36.7); MEAN CELL VOLUME 88.8 fL (81.5-99.8); RED BLOOD CELL COUNT 3.47 10^6/uL (4.40-6.38); RED CELL DISTRIBUTION WIDTH 13.1 % (11.5-15.2)
[2016-12-28] MEDS: ceFAZolin 2 GM/DEXTROSE 100 ML IV SCH (05:27)
[2016-12-28] MEDS: FAMOTIDINE 20 MG/NACL 50 ML IV SCH ×2 (05:28→18:19)
[2016-12-28] MEDS: HEPARIN 5,000 UNIT/0.5 ML SYR SC SCH ×4 (05:29→22:15)
[2016-12-28 05:44] LABS: ANION GAP 5 mEq/L (8-16); CALCIUM 7.9 mg/dL (8.5-10.4); CARBON DIOXIDE 26 mEq/l (22-31); CHLORIDE 109 mEq/L (97-110); CREATININE 0.8 mg/dL (0.7-1.3); GLOMERULAR FILTRATION RATE > 60; GLUCOSE 175 mg/dL (70-100); POTASSIUM 4.8 mEq/L (3.5-5.2); SODIUM 140 mEq/L (134-144)
[2016-12-28] MEDS ORDERED: ACETAMINOPHEN 650 MG/20.3 ML UDCUP TUBE PRN (06:00)
[2016-12-28 06:16] LABS: BASE EXCESS 1.3 mEq/L (-2.5-2.5); BICARBONATE 25 mEq/L (22-26); MEASURED OXYGEN SATURATION 92 % (92-95); PCO2 42 mmHg (34-38); PO2 68 mmHg (65-75); TCO2 27 mEq/L (23-27)
[2016-12-28 06:18] LABS: CPAP YES
[2016-12-28 06:19] LABS: O2 CONCENTRATIION 40 % (0-100); P/F RATIO 170 RATIO; PATIENT RATE 40; PRESSURE SUPPORT 7
--- NOTE | 2016-12-28 07:40 | SOAPPROG ---
SOAP Progress Note Assessment/Plan: POD #2: CABGx3 (REED-LAD, RANJANA-diag, LRA-PDA), aortic root replacement with #27 Magna bioprosthesis in a #31 Hemashield conduit, ligation YUE, open harvest left radial artery Unstable angina s/p CABGx3 with arterial grafts - ASA, BB and statin when appropriate for secondary prevention - Continue nitro gtt for radial graft patency with conversion to oral CCB x 3 months - CTs/FC out after extubation, AL likely out later today, PW x 4 pulled Aortic root and ascending aortic aneurysm with BAV s/p aortic root replacement with #27 Magna bioprosthesis in a #31 Hemashield conduit - ASA for thromboprophylaxis Acute blood loss anemia - No blood product transfusions necessary, monitor H/H Left hemiparesis with LUE fasciculations - Opens eyes spontaneously and follows commands, however, left-side paretic - CT head negative for acute CVA, MRI today to further evaluate - Vent weaning in progress Subjective: Follows commands. Cannot move left side. Objective: Vital Signs Temp Pulse Resp BP Pulse Ox 37.2 C 91 27 H 116/73 93 12/28/16 07:00 12/28/16 07:00 12/28/16 07:00 12/28/16 07:00 12/28/16 07:00 Laboratory Results 12/28/16 05:10 12/28/16 05:10 12/27/16 12/28/16 12/29/16 05:59 05:59 05:59 Intake Total 1260 1859.0 Output Total 1410 1890 85 Balance -150 -31.0 -85 PT 13.4 SEC (12.0-15.0) 12/25/16 07:50 INR 1.03 (0.83-1.16) 12/25/16 07:50 Physical Exam - Physical Exam General Appearance: no apparent distress EENT: ET tube, No scleral icterus (R) Neck: normal inspection Respiratory: other (tachypneic when on CPAP) Cardiac/Chest: regular rate, rhythm Abdomen: non-tender, soft, No distended Skin: normal color, warm/dry Extremities: normal capillary refill, other (LUE open RA harvest site C/D/I, incision soft), No pedal edema Neuro/Psych: motor weakness (left), depressed affect ICD10 Worksheet Patient Problems: Problems Problem Status Onset Hemiparesis Acute S/P AVR Acute S/P CABG x 3 Acute S/P aortic aneurysm repair Acute Unstable angina pectoris Acute Aortic aneurysm Chronic Bicuspid aortic valve Chronic
[2016-12-28] MEDS: SENNOSIDES 17.6 MG/10 ML UDL - IF LIQUID ORDERED TUBE SCH ×2 (08:00→20:23)
[2016-12-28] MEDS: ASPIRIN 81 MG CHEWABLE TAB TUBE PRN (08:00)
[2016-12-28] MEDS: MUPIROCIN 2% 22 GM OINT NS SCH (08:01)
[2016-12-28] MEDS: ASPIRIN 81 MG CHEWABLE TAB PO SCH (08:01)
--- NOTE | 2016-12-28 08:43 | PDINTPN ---
Surgical Dressing Maker Progress Note Assessment/Plan: Assessment/plan: * Coronary artery disease * Status post CABG * Respiratory failure-stable on mechanical ventilation. However, markedly tachypneic during CPAP trial -Repeat CPAP trial as well as weaning parameters. * Stroke-possible MRI today * VTE prophylaxis * Stress ulcer prophylaxis * Nutrition-none at this time. -consider starting tube feeds * Sedation-adequate Case discussed with nursing and RT 35 minutes of critical care time spent with the patient Subjective: Awake, following commands. Not moving left side. Objective: Vital Signs Temp Pulse Resp BP Pulse Ox 37.3 C 92 22 H 105/68 94 12/28/16 07:53 12/28/16 07:53 12/28/16 07:53 12/28/16 07:53 12/28/16 07:53 Laboratory Results 12/28/16 05:10 12/28/16 05:10 12/27/16 12/28/16 12/29/16 05:59 05:59 05:59 Intake Total 1260 1859.0 Output Total 1410 1890 85 Balance -150 -31.0 -85 PT 13.4 SEC (12.0-15.0) 12/25/16 07:50 INR 1.03 (0.83-1.16) 12/25/16 07:50 Laboratory Results 12/28/16 05:10 12/28/16 05:10 12/28/16 06:10 Patient Temperature 37.9 DEGREES DEGREES pCO2 42 mmHg H mmHg (34 - 38) pO2 68 mmHg mmHg (65 - 75) Total CO2 27 mEq/L mEq/L (23 - 27) ABG pH 7.41 (7.35 - 7.45) ABG PO2/FiO2 Ratio 170 RATIO RATIO ABG O2 Saturation 92 % % (92 - 95) ABG Base Excess 1.3 mEq/L mEq/L (-2.5 - 2.5) O2 Concentration % 40 % % Actual Respiration Rate 40 PEEP 5 Pressure Support 7 CPAP YES Chest p-vwf-getluxdx by myself. Endotracheal tube in good position. Right- sided atelectasis with possible elevated right hemidiaphragm. Physical Exam - Physical Exam General Appearance: alert, no apparent distress EENT: PERRL/EOMI, ET tube Neck: non-tender, full range of motion, supple Respiratory: crackles (Few right base), other (Tech apneic), No respiratory distress, No wheezing Cardiac/Chest: normal peripheral pulses, regular rate, rhythm, systolic murmur Peripheral Pulses: 2+: carotid (R), carotid (L), femoral (R), femoral (L), dorsalis-pedis (R), dorsalis-pedis (L) Abdomen: normal bowel sounds, non-tender, soft Male Genitalia: deferred Rectal: deferred Skin: normal color, warm/dry Neuro/Psych: alert ICD10 Worksheet Patient Problems: Problems Problem Status Onset Hemiparesis Acute S/P AVR Acute S/P CABG x 3 Acute S/P aortic aneurysm repair Acute Unstable angina pectoris Acute Aortic aneurysm Chronic Bicuspid aortic valve Chronic
--- NOTE | 2016-12-28 09:56 | NEUROPROG ---
Assessment: Probable stroke with left hemiplegia. MRI is planned for today if possible and if not will do a head CT. Subjective: Pt remains awake on vent with left side weakness. Objective: Vital Signs Temp Pulse Resp BP Pulse Ox 37.3 C 92 22 H 105/68 94 12/28/16 07:53 12/28/16 07:53 12/28/16 07:53 12/28/16 07:53 12/28/16 07:53 Laboratory Results 12/28/16 05:10 12/28/16 05:10 12/27/16 12/28/16 12/29/16 05:59 05:59 05:59 Intake Total 1260 1859.0 Output Total 1410 1890 85 Balance -150 -31.0 -85 PT 13.4 SEC (12.0-15.0) 12/25/16 07:50 INR 1.03 (0.83-1.16) 12/25/16 07:50 Left hemiplegia is unchanged. Allergies/Adverse Reactions: No Known Allergies Allergy (Unverified 12/25/16 07:31)
[2016-12-28 13:16] LABS: POTASSIUM 4.3 mEq/L (3.5-5.2)
[2016-12-28 14:03] LABS: BICARBONATE 25 mEq/L (22-26); MEASURED OXYGEN SATURATION 95 % (92-95); PCO2 33 mmHg (34-38); PO2 70 mmHg (65-75); TCO2 26 mEq/L (23-27)
[2016-12-28] MEDS: fentaNYL 100 MCG/2 ML INJ IVP PRN ×2 (18:19→20:21)
[2016-12-28 19:00] LABS: POTASSIUM 4.1 mEq/L (3.5-5.2)
[2016-12-28] MEDS: ACETAMINOPHEN 650 MG SUPP PR PRN (20:22)
[2016-12-29] MEDS: fentaNYL 100 MCG/2 ML INJ IVP PRN ×4 (00:37→07:39)
[2016-12-29 05:34] LABS: HEMATOCRIT 28.7 % (40.0-51.0); HEMOGLOBIN 9.8 g/dL (13.7-17.5); MEAN CELL HEMOGLOBIN 30.6 pg (27.9-34.1); MEAN CELL HEMOGLOBIN CONCENTR. 34.1 g/dL (32.4-36.7); MEAN CELL VOLUME 89.7 fL (81.5-99.8); RED BLOOD CELL COUNT 3.2 10^6/uL (4.40-6.38); RED CELL DISTRIBUTION WIDTH 12.6 % (11.5-15.2)
[2016-12-29 05:38] LABS: ANION GAP 8 mEq/L (8-16); CALCIUM 8.1 mg/dL (8.5-10.4); CARBON DIOXIDE 27 mEq/l (22-31); CHLORIDE 108 mEq/L (97-110); CREATININE 0.7 mg/dL (0.7-1.3); GLOMERULAR FILTRATION RATE > 60; GLUCOSE 137 mg/dL (70-100); SODIUM 143 mEq/L (134-144)
[2016-12-29] MEDS: HEPARIN 5,000 UNIT/0.5 ML SYR SC SCH ×3 (06:15→20:38)
[2016-12-29] MEDS: FAMOTIDINE 20 MG/NACL 50 ML IV SCH (06:15)
--- NOTE | 2016-12-29 07:54 | SOAPPROG ---
SOAP Progress Note Assessment/Plan: Assessment: POD#3 CABGx3 (REED-LAD, RANJANA-diag, LRA-PDA), aortic root replacement with #27 Magna bioprosthesis in a #31 Hemashield conduit, ligation YUE, open harvest left radial artery Sx severe CAD w preserved LV systolic fx - s/p CABGx3 with all arterial revasc. Early postop course compl by CVA. TCPWs out for MRI. Secondary prevention with ASA, BB and statin when appropriate. Radial artery anti-spasm prophylaxis with nitro gtt, transitioning to oral CCB x 3 months. BAV w aneurysmal aortic root - s/p AVR/root with josé re-implantation into a tissue valved conduit. Antithrombotic prophylaxis with ASA. Acute expected blood loss anemia - Stable. No transfusions required. Postoperative CVA - Supratentorial infarcts, R>L, assoc with LHP. Neuro following. Extubation delayed until yest. Severe dysphagia per RESEARCH EXECUTIVE. Remains strict NPO. Plan: Remove CTs, kc, and berny. Attempt TFs via NG. Meds per tube. Inc mobility per PT/OT. 12/29/16 07:50 Subjective: Sitting in a chair, gazing to rt. Able to move head and make eye contact. Oriented to person, place. Responds appropriately to simple questions. Left side remains flaccid. Objective: Vital Signs Temp Pulse Resp BP Pulse Ox 37.0 C 102 H 29 H 136/84 H 96 12/29/16 04:00 12/29/16 06:20 12/29/16 06:20 12/29/16 06:20 12/29/16 06:20 Laboratory Results 12/29/16 05:10 12/29/16 05:10 12/28/16 12/29/16 12/30/16 05:59 05:59 05:59 Intake Total 1859.0 730.1 Output Total 1890 1160 Balance -31.0 -429.9 PT 13.4 SEC (12.0-15.0) 12/25/16 07:50 INR 1.03 (0.83-1.16) 12/25/16 07:50 Extubated yest. Min suppl O2 req. SR/ST. SBP creep. CXR-> no PTX, no pulm vasc congestion, pl tubes in good position, bibasilar atelectasis. Balanced I/Os. Dissipating CTOP. Labs ok. Physical Exam - Physical Exam General Appearance: alert, no apparent distress Respiratory: lungs clear (grossly), other (Blakes x 3 y-d to pleurovac, serosang drainage, no AL) Cardiac/Chest: regular rate, rhythm, tachycardia, other (Sternum grossly stable. Sternotomy and left radial arteriotomy CDI. ) Abdomen: non-tender, soft Skin: warm/dry Extremities: swelling (1+ gen) ICD10 Worksheet Patient Problems: Problems Problem Status Onset Hemiparesis Acute S/P AVR Acute S/P CABG x 3 Acute S/P aortic aneurysm repair Acute Unstable angina pectoris Acute Aortic aneurysm Chronic Bicuspid aortic valve Chronic
[2016-12-29] MEDS: ASPIRIN 81 MG CHEWABLE TAB PO SCH (11:00)
[2016-12-29] MEDS: amLODIPine BESYLATE 5 MG TAB TUBE SCH (13:05)
[2016-12-29] MEDS: SENNOSIDES 17.6 MG/10 ML UDL - IF LIQUID ORDERED TUBE SCH ×2 (13:06→20:41)
[2016-12-29] MEDS: ASPIRIN 81 MG CHEWABLE TAB TUBE PRN (13:06)
[2016-12-29 16:38] LABS: POTASSIUM 4.1 mEq/L (3.5-5.2)
--- NOTE | 2016-12-29 17:50 | NEUROPROG ---
Assessment: 1. Status post CABG and aortic valve replaced 2. postoperative, bilateral cerebral infarctions 40 total minutes floor time; reviewing records , imaging and counseling patient and his . the patient has significant bilateral infarcts, maximal right hemisphere there are some regions of diffusion-weighted abnormality in the left motor strip these findings could cause bilateral weakness, maximal left we had a long discussion regarding the functional impact, prognosis and recovery when cleared by Dr. Barragan - Quyen recommend restarting anti-platelets he will need close follow up with PT, speech and OT Ideally, he will qualify for inpatient rehabilitation will follow up on above Subjective: some weakness in the right leg Objective: Vital Signs Temp Pulse Resp BP Pulse Ox 37.4 C 109 H 26 H 147/91 H 98 12/29/16 17:00 12/29/16 17:00 12/29/16 17:00 12/29/16 17:00 12/29/16 17:00 Laboratory Results 12/29/16 05:10 12/29/16 16:00 12/28/16 12/29/16 12/30/16 05:59 05:59 05:59 Intake Total 1859.0 730.1 Output Total 1890 1160 305 Balance -31.0 -429.9 -305 PT 13.4 SEC (12.0-15.0) 12/25/16 07:50 INR 1.03 (0.83-1.16) 12/25/16 07:50 right gaze deviation awake and alert dense left eleanor paresis weakness in right lower extremity patient is moving his right hand well, and follow commands with right hand (" show me your thumb") Allergies/Adverse Reactions: No Known Allergies Allergy (Unverified 12/25/16 07:31)
[2016-12-29 18:43] LABS: POTASSIUM 3.5 mEq/L (3.5-5.2)
[2016-12-29] MEDS ORDERED: PROTOCOL POTASSIUM 1 DOSE MISC PRN ×2 (19:23→19:25)
[2016-12-29] MEDS: HYDROCODONE/APAP 5/325 TAB TUBE PRN (20:39)
[2016-12-29] MEDS: POTASSIUM Cl (KCl) 50 ML IV SCH ×2 (20:41→22:10)
[2016-12-30] MEDS: POTASSIUM Cl (KCl) 50 ML IV SCH (00:23)
[2016-12-30] MEDS: HYDROCODONE/APAP 5/325 TAB TUBE PRN ×2 (03:36→09:17)
[2016-12-30 04:05] LABS: HEMATOCRIT 29.8 % (40.0-51.0); HEMOGLOBIN 9.7 g/dL (13.7-17.5); MEAN CELL HEMOGLOBIN 29.8 pg (27.9-34.1); MEAN CELL HEMOGLOBIN CONCENTR. 32.6 g/dL (32.4-36.7); MEAN CELL VOLUME 91.4 fL (81.5-99.8); RED BLOOD CELL COUNT 3.26 10^6/uL (4.40-6.38); RED CELL DISTRIBUTION WIDTH 12.6 % (11.5-15.2)
[2016-12-30 04:26] LABS: ANION GAP 6 mEq/L (8-16); CALCIUM 8.2 mg/dL (8.5-10.4); CARBON DIOXIDE 29 mEq/l (22-31); CHLORIDE 109 mEq/L (97-110); CREATININE 0.7 mg/dL (0.7-1.3); GLOMERULAR FILTRATION RATE > 60; GLUCOSE 168 mg/dL (70-100); SODIUM 144 mEq/L (134-144)
[2016-12-30] MEDS: HEPARIN 5,000 UNIT/0.5 ML SYR SC SCH ×3 (06:07→21:38)
--- NOTE | 2016-12-30 08:14 | SOAPPROG ---
SOAP Progress Note Assessment/Plan: POD #4: CABGx3 (REED-LAD, RANJANA-diag, LRA-PDA), aortic root replacement with #27 Magna bioprosthesis in a #31 Hemashield conduit, ligation YUE, open harvest left radial artery Unstable angina s/p CABGx3 with arterial grafts - Continue ASA and BB, statin when better PO intake - CCB x 3 months for radial graft patency - All wires/tubes out Aortic root and ascending aortic aneurysm with BAV s/p aortic root replacement with #27 Magna bioprosthesis in a #31 Hemashield conduit - ASA for thromboprophylaxis Acute blood loss anemia - No blood product transfusions necessary, monitor H/H Acute bilateral cerebral R>L CVA with left hemiparesis and RLE weakness - PT/OT/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 Difficult to elicit conversation. Objective: Vital Signs Temp Pulse Resp BP Pulse Ox 37.0 C 100 22 H 118/72 96 12/30/16 02:00 12/30/16 06:00 12/30/16 06:00 12/30/16 06:00 12/30/16 06:00 Laboratory Results 12/30/16 03:49 12/30/16 03:49 12/29/16 12/30/16 12/31/16 05:59 05:59 05:59 Intake Total 730.1 1498 Output Total 1160 455 150 Balance -429.9 1043 -150 PT 13.4 SEC (12.0-15.0) 12/25/16 07:50 INR 1.03 (0.83-1.16) 12/25/16 07:50 Physical Exam - Physical Exam General Appearance: no apparent distress EENT: other (NGT present), No scleral icterus (R), No scleral icterus (L) Neck: limited range of motion (lateralized to right) Respiratory: No respiratory distress Cardiac/Chest: regular rate, rhythm Abdomen: non-tender, soft, No distended Skin: normal color, diaphoresis Extremities: No pedal edema Neuro/Psych: motor weakness (L, RLE), speech abnormalities, depressed affect ICD10 Worksheet Patient Problems: Problems Problem Status Onset Hemiparesis Acute S/P AVR Acute S/P CABG x 3 Acute S/P aortic aneurysm repair Acute Unstable angina pectoris Acute Aortic aneurysm Chronic Bicuspid aortic valve Chronic
[2016-12-30] MEDS: METOPROLOL TARTRATE 25 MG TAB PO SCH ×2 (09:17→21:37)
[2016-12-30] MEDS: SENNOSIDES 17.6 MG/10 ML UDL - IF LIQUID ORDERED TUBE SCH ×2 (09:18→21:37)
[2016-12-30] MEDS: FUROSEMIDE 40 MG/4 ML VIAL IVP SCH (09:18)
[2016-12-30] MEDS: amLODIPine BESYLATE 5 MG TAB TUBE SCH (09:18)
[2016-12-30] MEDS: POTASSIUM CL 20 MEQ/15 ML UDCUP PO SCH ×3 (09:19→21:41)
[2016-12-30] MEDS: LANSOPRAZOLE SUSP 30MG/10ML UDSYR (Adult) TUBE SCH (09:19)
--- NOTE | 2016-12-30 13:53 | NEUROPROG ---
Assessment: 1. Status post CABG and aortic valve replaced 2. postoperative, bilateral cerebral infarctions Some improvement in right leg weakness today. the patient has significant bilateral infarcts, maximal right hemisphere there are some regions of diffusion-weighted abnormality in the left motor strip these findings could cause bilateral weakness, maximal left when cleared by Dr. Barragan - Quyen recommend restarting anti-platelet agent he will need close follow up with PT, speech and OT Ideally, he will qualify for inpatient rehabilitation will follow up on above Subjective: right leg improved today Objective: Vital Signs Temp Pulse Resp BP Pulse Ox 37.4 C 100 18 137/81 H 96 12/30/16 08:00 12/30/16 09:17 12/30/16 09:00 12/30/16 09:18 12/30/16 09:00 Laboratory Results 12/30/16 03:49 12/30/16 03:49 12/29/16 12/30/16 12/31/16 05:59 05:59 05:59 Intake Total 730.1 1498 Output Total 1160 455 150 Balance -429.9 1043 -150 PT 13.4 SEC (12.0-15.0) 12/25/16 07:50 INR 1.03 (0.83-1.16) 12/25/16 07:50 patient is awake and alert right gaze preference left eleanor paresis he is able to elevate the right leg, extended right knee and dorsiflex at right foot 2/5 he is able to use his right hand, lift his thumb Allergies/Adverse Reactions: No Known Allergies Allergy (Unverified 12/25/16 07:31)
[2016-12-30 16:21] LABS: ANION GAP 10 mEq/L (8-16); CALCIUM 8.5 mg/dL (8.5-10.4); CARBON DIOXIDE 29 mEq/l (22-31); CHLORIDE 106 mEq/L (97-110); CREATININE 0.6 mg/dL (0.7-1.3); GLOMERULAR FILTRATION RATE > 60; GLUCOSE 121 mg/dL (70-100); POTASSIUM 3.9 mEq/L (3.5-5.2); SODIUM 145 mEq/L (134-144)
[2016-12-30] MEDS ORDERED: POTASSIUM Cl (KCl) 50 ML IV ONE (18:30)
[2016-12-31 04:21] LABS: POTASSIUM 4.2 mEq/L (3.5-5.2)
[2016-12-31] MEDS: HEPARIN 5,000 UNIT/0.5 ML SYR SC SCH ×3 (06:04→21:00)
[2016-12-31] MEDS: amLODIPine BESYLATE 5 MG TAB TUBE SCH (07:51)
--- NOTE | 2016-12-31 08:38 | SOAPPROG ---
SOAP Progress Note Assessment/Plan: Assessment: POD#5 CABGx3 (REED-LAD, RANJANA-diag, LRA-PDA), aortic root replacement with #27 Magna bioprosthesis in a #31 Hemashield conduit, ligation YUE, open harvest left radial artery Sx severe CAD w preserved LV systolic fx - s/p CABGx3 with all arterial revasc. Early postop course compl by CVA. Tubes and wires out. Secondary prevention with ASA, BB, and statin when appropriate. Adjunctive CCB x 3 mo for radial artery anti-spasm prophylaxis. BAV w aneurysmal aortic root - s/p AVR/root with josé re-implantation into a tissue valved conduit. Antithrombotic prophylaxis with ASA. Acute expected blood loss anemia - Stable. No transfusions required. VTE prophylaxis with SQ LMWH. Postoperative CVA - Bilateral infarcts, R>L, assoc with LHP and mild RLE weakness. Neuro following. Extubation delayed until 12/28. Severe dysphagia per INSURANCE CLAIM APPROVER. Remains strict NPO, awaiting VFSS. Handling secretions well. [place] PEG for prolonged dysphagia. Inpatient rehab consult pending. Plan: Replace NG if ongoing dysphagia. Inc Norvasc to 5 mg daily. Hold lasix/KCL while NPO. Change TID SQ hep to daily Lovenox. Inc mobility per PT/OT. Dispo - Inpt rehab (?[facility]). 12/31/16 08:38 Subjective: Sitting in a chair, visiting with business partners. More interactive. Thirsty and focused ("I've been training") on passing swallow. Actively moving rt leg. Left side flaccid. Objective: Vital Signs Temp Pulse Resp BP Pulse Ox 37.0 C 102 H 20 124/80 H 97 12/31/16 04:00 12/31/16 07:19 12/31/16 07:19 12/31/16 07:51 12/31/16 07:19 Laboratory Results 12/30/16 03:49 12/31/16 04:03 12/30/16 12/31/16 01/01/17 05:59 05:59 05:59 Intake Total 1498 500 Output Total 455 1500 Balance 1043 -1000 PT 13.4 SEC (12.0-15.0) 12/25/16 07:50 INR 1.03 (0.83-1.16) 12/25/16 07:50 NG out yest, awaiting VFSS, and limited meds received. SR/ST with MAPs > 90. CXR -> improved insp effort, small left pl eff. Improved fluid balance. Within 1 kg preop wt. Physical Exam - Physical Exam General Appearance: alert, no apparent distress (in good spirits, stringing together several word answers/comments) Respiratory: lungs clear (grossly) Cardiac/Chest: regular rate, rhythm, other (Sternum grossly stable. Sternotomy and LUE radial arteriotomy CDI) Abdomen: non-tender, soft Skin: warm/dry Extremities: swelling (1+ left limbs) ICD10 Worksheet Patient Problems: Problems Problem Status Onset Hemiparesis Acute S/P AVR Acute S/P CABG x 3 Acute S/P aortic aneurysm repair Acute Unstable angina pectoris Acute Aortic aneurysm Chronic Bicuspid aortic valve Chronic
[2016-12-31] MEDS ORDERED: amLODIPine BESYLATE 5 MG TAB TUBE SCH (09:00)
[2016-12-31] MEDS: METOPROLOL TARTRATE 25 MG TAB PO SCH ×2 (10:33→21:00)
[2016-12-31] MEDS: FUROSEMIDE 40 MG/4 ML VIAL IVP SCH (10:35)
[2016-12-31] MEDS: POTASSIUM CL 20 MEQ/15 ML UDCUP PO SCH (10:36)
[2016-12-31] MEDS: HYDROCODONE/APAP 5/325 TAB TUBE PRN (11:52)
[2016-12-31] MEDS ORDERED: SENNOSIDES/DOCUSATE SODIUM TAB PO PRN (13:40)
[2016-12-31] MEDS ORDERED: ASPIRIN 81 MG CHEWABLE TAB ONE (13:49)
[2016-12-31] MEDS: ASPIRIN 81 MG CHEWABLE TAB TUBE PRN (13:50)
--- NOTE | 2016-12-31 15:06 | NEUROPROG ---
Assessment: 1. Status post CABG and aortic valve replaced 2. bilateral cerebral infarctions Continued improvement in right leg weakness today. I examine him today while physical therapy was working with him and was able to observe. He was sitting at the edge of the bed while doing therapy today, and apparently did activate his right lower extremity appropriately the patient has significant bilateral infarcts, maximal right hemisphere there are some regions of diffusion-weighted abnormality in the left motor strip these findings could cause bilateral weakness, maximal left recommendations: 1. Patient is on aspirin now, he should continue this indefinitely 2. when cleared by speech therapy, he can start statin therapy 3. I recommend inpatient rehabilitation, discussed at length with patient's and patient we will continue to follow this very pleasant patient as needed. No further testing is needed now. Please do not hesitate to call with any questions or changes in neurologic status. Subjective: No new events Objective: Vital Signs Temp Pulse Resp BP Pulse Ox 37.0 C 92 20 120/80 93 12/31/16 04:00 12/31/16 12:00 12/31/16 12:00 12/31/16 12:00 12/31/16 12:00 Laboratory Results 12/30/16 03:49 12/31/16 04:03 12/30/16 12/31/16 01/01/17 05:59 05:59 05:59 Intake Total 1498 500 Output Total 455 1500 Balance 1043 -1000 PT 13.4 SEC (12.0-15.0) 12/25/16 07:50 INR 1.03 (0.83-1.16) 12/25/16 07:50 awake and alert speaking right gaze preference left eleanor paresis able to activate right lower extremity proximally and distally right upper extremity he is able to use his hand Allergies/Adverse Reactions: No Known Allergies Allergy (Unverified 12/25/16 07:31)
[2016-12-31] MEDS ORDERED: oxyCODONE IR 5 MG TAB PO PRN (21:00)
[2016-12-31] MEDS ORDERED: ACETAMINOPHEN 325 MG TAB PO PRN (21:00)
[2016-12-31] MEDS: HYDROCODONE/APAP 5/325 TAB PO PRN (21:03)
[2016-12-31] MEDS: SENNOSIDES 17.6 MG/10 ML UDL - IF LIQUID ORDERED TUBE SCH (22:08)
[2016-12-31] MEDS: LANSOPRAZOLE SUSP 30MG/10ML UDSYR (Adult) TUBE SCH (22:08)
[2016-12-31] MEDS ORDERED: ZOLPIDEM TARTRATE 5 MG TAB PO PRN (23:09)
[2017-01-01] MEDS: HYDROCODONE/APAP 5/325 TAB PO PRN (04:38)
[2017-01-01 04:41] VITALS: BP 110/56; PULSE 98; RESP 20; TEMP 98.2; O2SAT 94
[2017-01-01 06:37] LABS: HEMATOCRIT 29.9 % (40.0-51.0); HEMOGLOBIN 10.2 g/dL (13.7-17.5); MEAN CELL HEMOGLOBIN 30.3 pg (27.9-34.1); MEAN CELL HEMOGLOBIN CONCENTR. 34.1 g/dL (32.4-36.7); MEAN CELL VOLUME 88.7 fL (81.5-99.8); RED BLOOD CELL COUNT 3.37 10^6/uL (4.40-6.38); RED CELL DISTRIBUTION WIDTH 12.5 % (11.5-15.2)
[2017-01-01 06:52] LABS: ANION GAP 9 mEq/L (8-16); CALCIUM 8.5 mg/dL (8.5-10.4); CARBON DIOXIDE 26 mEq/l (22-31); CHLORIDE 106 mEq/L (97-110); CREATININE 0.6 mg/dL (0.7-1.3); GLOMERULAR FILTRATION RATE > 60; GLUCOSE 115 mg/dL (70-100); POTASSIUM 3.6 mEq/L (3.5-5.2); SODIUM 141 mEq/L (134-144)
[2017-01-01] MEDS ORDERED: POTASSIUM CL 20 MEQ TAB PO ONE (08:04)
--- NOTE | 2017-01-01 08:19 | SOAPPROG ---
SOAP Progress Note Assessment/Plan: POD #6: CABGx3 (REED-LAD, RANJANA-diag, LRA-PDA), aortic root replacement with #27 Magna bioprosthesis in a #31 Hemashield conduit, ligation YUE, open harvest left radial artery Unstable angina s/p CABGx3 with arterial grafts - Continue ASA and BB, statin when better PO intake - CCB x 3 months for radial graft patency - All wires/tubes out Aortic root and ascending aortic aneurysm with BAV s/p aortic root replacement with #27 Magna bioprosthesis in a #31 Hemashield conduit - ASA for thromboprophylaxis Acute blood loss anemia - No blood product transfusions necessary, monitor H/H Acute bilateral cerebral R>L CVA with left hemiparesis and RLE weakness - PT/OT/BURRER HAND - VFSS revealed no dysphagia - pt on regular diet with thin liquids - Inpatient rehab evaluation pending Subjective: Denies pain. Objective: Vital Signs Temp Pulse Resp BP Pulse Ox 36.8 C 98 20 110/56 L 94 01/01/17 04:00 01/01/17 04:00 01/01/17 04:00 01/01/17 04:00 01/01/17 04:00 Laboratory Results 01/01/17 06:20 01/01/17 06:20 12/31/16 01/01/17 01/02/17 05:59 05:59 05:59 Intake Total 500 650 Output Total 1500 1100 Balance -1000 -450 PT 13.4 SEC (12.0-15.0) 12/25/16 07:50 INR 1.03 (0.83-1.16) 12/25/16 07:50 Physical Exam - Physical Exam General Appearance: no apparent distress EENT: normal ENT inspection Neck: normal inspection Respiratory: No respiratory distress Cardiac/Chest: regular rate, rhythm, other (Sternotomy C/D/I) Abdomen: non-tender, soft, No distended Skin: normal color, other (clammy) Extremities: other (LUE open RAL site C/D/I), No pedal edema Neuro/Psych: motor weakness (Left sided paretic, RLE weakness), depressed affect ICD10 Worksheet Patient Problems: Problems Problem Status Onset Hemiparesis Acute S/P AVR Acute S/P CABG x 3 Acute S/P aortic aneurysm repair Acute Unstable angina pectoris Acute Aortic aneurysm Chronic Bicuspid aortic valve Chronic
[2017-01-01] MEDS ORDERED: ASPIRIN 81 MG CHEWABLE TAB PO SCH (09:00)
[2017-01-01] MEDS ORDERED: amLODIPine BESYLATE 5 MG TAB PO SCH (09:00)
[2017-01-01] MEDS ORDERED: METOPROLOL TARTRATE 25 MG TAB PO SCH (09:00)
[2017-01-01] MEDS ORDERED: ENOXAPARIN 40 MG/0.4 ML SYR SC SCH (09:00)
--- NOTE | 2017-01-01 11:36 | PDIAF ---
- Diagnosis Diagnosis: s/p CABG/aortic root/ascending aorta repair, post-op CVA Code Status: Full Code - Medication Management Discharge Medications: Medications to Continue on Transfer Melatonin [Melatonin 3 MG (*)] 3 mg PO HS 12/25/16 [Last Taken 12/24/16] Acetaminophen [Tylenol 325mg (*)] 325 - 650 mg PO Q4HRS PRN #0 tab 01/01/17 [ Last Taken Unknown] Aspirin [Aspirin 81mg (*)] 81 mg PO DAILY #0 tab.chew 01/01/17 [Last Taken Unknown] Atorvastatin Calcium [Lipitor 20 mg (*)] 20 mg PO DAILY #0 tab 01/01/17 [Last Taken Unknown] Enoxaparin [Lovenox 40 MG (*)] 40 mg SC DAILY #0 syr 01/01/17 [Last Taken Unknown] Hydrocodone/APAP 5/325 [[place] 5/325 (*)] 1 - 2 tab PO Q4HRS PRN #0 tab 01/01/17 [Last Taken Unknown] Metoprolol Tartrate [Lopressor 25 mg (*)] 25 mg PO BID #0 tab 01/01/17 [Last Taken Unknown] Sennosides/Docusate Sodium [Senokot-S] 1 - 2 tab PO BID PRN #0 tab 01/01/17 [ Last Taken Unknown] Zolpidem Tartrate [Ambien 5MG (*)] 5 mg PO HS PRN #0 tab 01/01/17 [Last Taken Unknown] amLODIPine BESYLATE [Norvasc 5 mg (*)] 5 mg PO DAILY #0 tab 01/01/17 [Last Taken Unknown] Discharge Medications: Refer to the Discharge Home Medication list for PRN reason. PICC Care - Routine: N/A - Orders Services needed: Registered Nurse, Certified Weather Analyst, Master Coremaking Machine Operator , Physical Therapy, Occupational Therapy Diet Recommendation: cardiac -low fat low salt, fluid restriction (use comment for amount) (2 Liters) Diet Texture: Regular Texture Diet, Thin Liquids, Meds Whole w/Liquids Weigh Patient: daily [place]: No Wound Care Instructions: Wash wounds daily with soap and water and leave them open to air. Activity/Weight Bearing Restrictions: Sternal precautions x 4 weeks. Avoid lifting > 10lbs with an outstretched arm. Avoid push/pull activities. Additional: Cleanse wounds daily with soap and water. Avoid water immersion ( pool, hot tub, bath) until scabs off. Ok to leave all wounds open to air. Avoid creams or ointments until scabs off. Elevate low legs at rest. Avoid prolonged standing or dangling. Log daily vital signs: weight, heart rate, blood pressure. Call Team-Match for overnight weight gain > 2lbs, weekly gain > 5lbs or worsening leg swelling. Call Team-Match for resting heart rate > 120 or < 60 OR for systolic blood pressure consistently < 90 or > 140. - Labs/Radiology Imaging Orders: 01/12: CXR PA/Lateral - Follow Up Care Current Providers and Referrals: Raj Beard MD [Primary Care Provider] - Joseph Gandhi MD [Medical Doctor] - (To be arranged at surgical follow-up.) Rolando Barragan DO [Doctor of Osteopathy] - 01/13/17 11:30 am
--- NOTE | 2017-01-01 11:59 | PDDCSUM ---
Discharge Summary Discharge Summary: ADMISSION DATE: 12/25/16 DISCHARGE DATE: 01/01/17 ADMISSION DX: 1. Unstable angina with two-vessel CAD 2. Aortic root and ascending aorta aneurysm with bicuspid valve DISCHARGE DX: 1. Unstable angina with two-vessel CAD 2. Aortic root and ascending aorta aneurysm with bicuspid valve 3. Acute blood loss anemia 4. Postoperative CVA 5. Left hemiparesis 6. RLE weakness PROCEDURES 12/26/16, Rolando Barragan: 1. CABGx3 (REED-LAD, RANJANA-diag, LRA-PDA) 2. Left radial artery open harvest 3. Ligation left atrial appendage 4. Aortic root replacement with #27 Magna bioprosthesis in a #31 Hemashield graft HOSPITAL COURSE BY PROBLEM LIST 1. Unstable angina with two-vessel CAD - s/p CABGx3 with all arterial grafts. Beta-kaye, aspirin, and statin prescribed for secondary prevention. Norvasc prescribed to prevent spasm of radial artery conduit, duration 3 months. 2. Aortic root and ascending aorta aneurysm with bicuspid valve - s/p repair with bioprosthetic aortic valve and interposition graft. Aspirin for thromboprophylaxis. 3. Acute blood loss anemia - stable without the need for blood product transfusions. 4. Post-operative CVA with left-sided hemiparesis and RLE weakness - transferred to [facility] for aggressive therapy. CONDITION Fair DISPOSITION [facility] ACTIVITY Pt was instructed on sternal precautions, activity limitations, and which problems to call [facility] with. Please see Discharge Plan and Interagency Discharge Form in chart for specifics. D/C MEDICATIONS 1. Melatonin [Melatonin 3 MG (*)] 3 mg PO HS 2. Acetaminophen [Tylenol 325mg (*)] 325 - 650 mg PO Q4HRS PRN 3. Aspirin [Aspirin 81mg (*)] 81 mg PO DAILY 4. Atorvastatin Calcium [Lipitor 20 mg (*)] 20 mg PO DAILY 5. Enoxaparin [Lovenox 40 MG (*)] 40 mg SC DAILY 6. Hydrocodone/APAP 5/325 [[place] 5/325 (*)] 1 - 2 tab PO Q4HRS PRN 7. Metoprolol Tartrate [Lopressor 25 mg (*)] 25 mg PO BID 8. Sennosides/Docusate Sodium [Senokot-S] 1 - 2 tab PO BID PRN 9. Zolpidem Tartrate [Ambien 5MG (*)] 5 mg PO HS PRN 10. amLODIPine BESYLATE [Norvasc 5 mg (*)] 5 mg PO DAILY PENDING STUDIES/LABS 1. CXR prior to surgical follow-up F/U APPOINTMENTS 1. Rolando Barragan - 01/13/17, 11:30 AM 2. Julian Gandhi - to be arranged at surgical follow-up
== END 2017-01-01 13:06 | DRG 217 ==
LOC: FCATH 07:27 → F2W 14:26 → F2N 12-26 11:33
PROVIDERS: ADMIT Internal Medicine Cardiovascular Disease; ATTEND Thoracic Surgery (Cardiothoracic Vascular Surgery)
PROC: 4A023N7 Measurement of Cardiac Sampling and Pressure, Left Heart, Percutaneous Approach (ICD-10-PCS; 2016-12-25)
PROC: B2151ZZ Fluoroscopy of Left Heart using Low Osmolar Contrast (ICD-10-PCS; 2016-12-25)
PROC: B2111ZZ Fluoroscopy of Multiple Coronary Arteries using Low Osmolar Contrast (ICD-10-PCS; 2016-12-25)
PROC: 03BC0ZZ Excision of Left Radial Artery, Open Approach (ICD-10-PCS; principal; 2016-12-26 12:00)
PROC: 02RX0JZ Replacement of Thoracic Aorta, Ascending/Arch with Synthetic Substitute, Open Approach (ICD-10-PCS; principal; 2016-12-26 12:00)
PROC: 02100AW Bypass Coronary Artery, One Artery from Aorta with Autologous Arterial Tissue, Open Approach (ICD-10-PCS; principal; 2016-12-26 12:00)
PROC: 02100Z9 Bypass Coronary Artery, One Artery from Left Internal Mammary, Open Approach (ICD-10-PCS; principal; 2016-12-26 12:00)
PROC: 02L70ZK Occlusion of Left Atrial Appendage, Open Approach (ICD-10-PCS; principal; 2016-12-26 12:00)
PROC: 02100Z8 Bypass Coronary Artery, One Artery from Right Internal Mammary, Open Approach (ICD-10-PCS; principal; 2016-12-26 12:00)
PROC: 02RF08Z Replacement of Aortic Valve with Zooplastic Tissue, Open Approach (ICD-10-PCS; principal; 2016-12-26 12:00)
PROC: 5A1221Z Performance of Cardiac Output, Continuous (ICD-10-PCS; principal; 2016-12-26 12:00)
PROC: 5A1945Z Respiratory Ventilation, 24-96 Consecutive Hours (ICD-10-PCS; principal; 2016-12-26 12:00)
PROC: 0D9670Z Drainage of Stomach with Drainage Device, Via Natural or Artificial Opening (ICD-10-PCS; 2016-12-27)
DX: I25.110 Atherosclerotic heart disease of native coronary artery with unstable angina pectoris (principal); I71.2 Thoracic aortic aneurysm, without rupture; I97.821 Postprocedural cerebrovascular infarction following other surgery; I51.89 Other ill-defined heart diseases; I50.9 Heart failure, unspecified; Q23.1 Congenital insufficiency of aortic valve; D62 Acute posthemorrhagic anemia; G81.94 Hemiplegia, unspecified affecting left nondominant side; M62.81 Muscle weakness (generalized); R13.10 Dysphagia, unspecified
CPT/HCPCS: 82947-QW; 92523-GN; 92526-GN; 92610-GN; 92611-GN; 97110-GP; 97112-GP; 97163-GP; 97166-GO; 97530-GO; 97530-GP; C1768; C1769; J0153; J0282; J0690; J1265; J1644; J1650; J1815; J2001; J2150; J2250; J2260; J2310; J2370; J2440; J2704; J2720; J2930; J3010; J7060; P9041; Q9967

== ENCOUNTER 2017-01-01 13:33 | Inpatient (IN) | payer OTHER ==
[2017-01-01] MEDS ORDERED: ZOLPIDEM TARTRATE 5 MG TAB PO PRN (14:56)
[2017-01-01] MEDS ORDERED: ACETAMINOPHEN 325 MG TAB PO PRN (14:56)
--- NOTE | 2017-01-01 16:04 | PDOREHIP ---
Admission [facility] - Admission - 3 Day Assessment Period Admission Date/Day 1: 01/01/17 Day 2: 01/02/17 Day 3: 01/03/17 - Skin Conditions Unhealed Pressure Ulcer (1 or more/Stage 1 or >)-Admission: 1. Yes # Stage 1 Pressure Ulcers-Admission: 1 (R heel)
--- NOTE | 2017-01-01 17:25 | GHP ---
[f rep st] HISTORY AND PHYSICAL POST ADMISSION PHYSICIAN EVALUATION AND REHABILITATION TREATMENT PLAN. DATE OF ADMISSION: 01/01/2017 DATE OF EVALUATION: 01/01/2017. TIME OF EVALUATION: 15:20 IMPAIRMENT GROUP: 09. DATE OF ONSET: 12/25/2016. REFERRING PHYSICIAN: Dr. Gonzalez. CONSULTING PHYSICIANS: He was seen in consultation by a Dr. Toribio with Neurology and Dr. Dotson with Pulmonary Critical Care. REHABILITATION DIAGNOSIS: Stroke following coronary artery bypass graft. ETIOLOGIC DIAGNOSIS: Cardiac. DATE OF SURGERY: 12/26/2016. HISTORY OF PRESENT ILLNESS: The patient presented to [facility] with what was initially thought to be pleuritic pain, however he subsequently developed angina. EKG showed a right bundle branch block. He had a high risk stress test and so he under underwent coronary artery catheterization which showed 99% stenosis of the proximal LAD, as well as stenosis in the right coronary artery. He was additionally found to have a bicuspid aortic valve on echocardiogram and a dilated proximal aorta. He underwent surgery with coronary artery bypass graft and aortic root replacement as well as ligation of left atrial appendage. He unfortunately suffered a perioperative cerebrovascular accident, with infarcts in both the right and left hemispheres, more so in the right hemisphere than the left but also involving the left motor strip. He had left hemiparesis and right lower extremity weakness. He was stabilized over several days and appropriate for discharge to inpatient rehabilitation. OTHER LAB AND STUDIES: Chest x-ray on the day of discharge, showed some residual left pleural effusion but overall improved. He passed a video fluoroscopic swallow study. CBC on the date of discharge showed improving anemia with a hemoglobin of 10.2 and hematocrit of 29.9. Serum chemistry on the day of discharge showed overall normal renal function and electrolytes. His creatinine was low at 0.6. Glucose was slightly high at 115. Hemoglobin A1c had been checked, and it was normal at 5.5 on 12/25/2014. He had a lipid panel done which showed dyslipidemia with elevated triglycerides at 183, cholesterol elevated at 211, a high LDL at 137 and a low HDL at 38. He currently complains the cough, which is occasionally productive. He denies dyspnea. He has periodic discomfort in the right lower extremity which is relieved by flexing at the hip and knee. PRECAUTIONS: He is a fall risk. He has aspiration precautions and he has cardiac and sternal precautions status post surgery. ACTIVE COMORBIDITIES: He has the tier 3 comorbidity of left hemiparesis. He otherwise has no active tier 1, tier 2, or tier 3 comorbidities. PAST MEDICAL HISTORY: 1. Coronary artery disease. 2. Shoulder surgery. 3. Appendectomy. PREHOSPITAL MEDICATIONS: He was not taking any medications. ADMISSION MEDICATIONS: 1. Melatonin 3 mg p.o. at bedtime. 2. Acetaminophen 325-650 mg p.o. q.4 hours p.r.n. 3. Aspirin 81 mg p.o. daily. 4. Atorvastatin 20 mg p.o. daily. 5. Enoxaparin 40 mg subcutaneous daily. 6. Hydrocodone/acetaminophen 1-2 tabs p.o. q.4 hours p.r.n. 7. Metoprolol 25 mg p.o. twice daily. 8. Senna/docusate 1-2 tabs p.o. twice daily p.r.n. 9. Zolpidem 5 mg p.o. at bedtime p.r.n. 10. Amlodipine 5 mg p.o. daily for 3 months to prevent radial artery spasm. ALLERGIES: There are no known drug allergies. FAMILY HISTORY: He has no history of early cardiac disease. PSYCHOSOCIAL HISTORY: He is . He lives with his . He lives in [place]. He is originally from [facility]. 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 He is a nonsmoker and he uses occasional alcohol. REVIEW OF SYSTEMS: He reports insomnia for 2 nights. He has a cough but no dyspnea. He has some anxiety. He has discomfort in the right leg which is relieved by moving the leg. He has constipation times several days. He has had urinary frequency but no dysuria. He denies fevers or chills. He denies nausea or vomiting. He has a reduced appetite and currently he continues to prefer liquid food, though he is cleared for regular texture food and thin liquids. He is not in pain at present. Otherwise a 10-point review of systems is negative. PHYSICAL EXAM: VITAL SIGNS: Blood pressure is 107/73, heart rate is 93, respiratory rate is 20, oxygen saturation is 94% on room air. Temperature is 36.8 degrees centigrade. His weight is 90.4 kg for a body mass index of 25.6. GENERAL: This is a well-nourished, well-developed man. Lying in bed. Preferring the right gaze. Cooperative and in no acute distress. HEENT: Extraocular movements are intact. He does track all the way to the left. Pupils are equal, round, and reactive to light. Mucous membranes are moist. Dentition is in good condition. He has a mildly crowded airway Mallampati class 2. There is no posterior oropharyngeal mucus. NECK: Supple. There is a bandage over internal jugular catheter site. HEART: Regular rate and rhythm with no murmurs, rubs, or gallops. LUNGS: Expiratory wheezes in the right lower lobe, otherwise clear to auscultation bilaterally. ABDOMEN: Soft, nontender, nondistended with normoactive bowel sounds and no hepatosplenomegaly. EXTREMITIES: There is no cyanosis, clubbing, or edema. Radial pulses are 2+ bilaterally. Dorsalis pedis pulse is 2+ on the right and not palpable on the left on today's exam. SKIN: There is a midsternal surgical scar with eschar. There is no dehiscence or drainage. There is an ulceration from cardiac drain below the sternum in the upper abdomen with eschar and some slight serous drainage. There is softening to the right lateral posterior heel approximately 1 x 2 cm. NEUROLOGIC: He is alert and oriented x3. Cranial nerves 2-12 are grossly intact, though he has a preference for right gaze. He has normal strength in the right upper extremity. He has good antigravity strength 4+/5 in the right lower extremity, though the extensor hallucis longus is 2/5. He has flaccid paralysis in the left upper and lower extremities. Sensation overall is intact to light touch, though it feels different on the right lower extremity than normal. Deep tendon reflexes are 2+ bilaterally at the biceps, patella and Achilles tendons. Plantar reflex is indeterminate bilaterally. CURRENT LEVEL OF FUNCTION PER THE PREADMISSION SCREEN: Regarding diet, feeding , and swallowing, he was taking a regular diet with thin liquids. He needed setup and he was noted to have mild dysphagia. For grooming, he required minimal assist with voice cues. For bathing, he was dependent. Dressing lower body, required total assistance. For toileting, he was dependent. He was noted to be continent of bladder and bowel. Bed mobility required moderate to max assistance of 2. Transfers, he was noted to be dependent. For balance, he required increased assistance initially but he progressed to minimal to moderate assistance with voice cuing. Endurance was fair. Gait was not tested. He was noted to have decreased attention on cognitive evaluation. IMPRESSION: The patient is a 46-year-old man with coronary artery disease who underwent a 3-vessel coronary artery bypass graft as well as aortic root replacement and ligation of atrial appendage on 12/26/2014. He unfortunately suffered a perioperative cerebrovascular accident bihemispheric which has left him with flaccid paralysis of the left upper and lower extremity and weakness of the right upper and lower extremities. He has had improvement especially in the right upper and lower extremities during his hospitalization. He has been medically stabilized for his postsurgical state and he is appropriate for inpatient rehabilitation. His goal is to return home with his family and supportive services. For a safe discharge, it is anticipated that he will achieve modified independence for eating, that he will continue to require assistance for bed mobility but he should be able to maintain sitting at the edge of bed. He will likely continue to require minimal assistance to moderate assistance for transfers, bathing and dressing. He will require assistance for meal preparation, shopping, and household management. He will have therapy with physical therapy, occupational therapy, and speech and language pathology initially on a modified schedule for 30-60 minutes per day for each discipline on 5-7 days of the week. His expected duration of stay is 21-28 days. It is expected that upon discharge, he will benefit from home health services including nursing, speech and language pathology, a home health aide, occupational therapy, and physical therapy as well as a brain injury support group. ASSESSMENT AND PLAN: 1. Perioperative cerebrovascular accident on 12/26/16 with right-sided weakness and left-sided flaccid paralysis. Physical and occupational therapy to optimize mobility and activities of daily living. Fluoxetine will be initiated at 10 mg daily for neuro recovery and titrated to 20 mg once it is established that he tolerates the medication with no adverse effects. 2. Dysphagia and possible cognitive involvement to be assessed and treated by Speech and Language Pathology. 3. Status post coronary artery bypass graft. He appears to be healing well. Continue medications as ordered out of the hospital including aspirin, atorvastatin, metoprolol and amlodipine. 4. Radial artery harvesting. Continue amlodipine to prevent radial artery spasm in the left wrist. 5. Insomnia for 2 nights. Continue zolpidem and melatonin as ordered out of the hospital. Observe for adequate sleep and consider changing medications if necessary. 6. Constipation. Continue senna/docusate ordered from the hospital and Fleets enema and bisacodyl suppository are available as well. He will be monitored. 7. Sternal precautions x4 weeks with no lifting greater than 10 pounds and avoiding pushing or pulling activities. 8. Wound care. Wounds may be left open to air, cleansed daily with soap and water and no creams or ointments to be used until scabs come off. 9. Cardiac function status post surgery. He has been fluid resuscitated as well as diuresed after his surgery. He will have daily weights. 10. Cough without dyspnea. Chest x-ray this morning was improving. He will be monitored overnight. 11. Postsurgical anemia. We will repeat a CBC in the morning to ensure stability. FOLLOW UP: He is to see Dr. Lebron, cardiothoracic surgeon on 01/13/2017 at 11: 30 a.m., and at surgical follow up his next appointment with senior environmental consultant Dr. Gandhi will be arranged. He should follow up with his primary care provider, Dr. Raj Beard after discharge from inpatient rehabilitation. /[id number]/MODL MTDD
[2017-01-01] MEDS: METOPROLOL TARTRATE 25 MG TAB PO SCH (20:14)
[2017-01-01] MEDS: HYDROCODONE/APAP 5/325 TAB PO PRN (20:17)
[2017-01-01] MEDS ORDERED: MELATONIN 3 MG TAB PO SCH (21:00)
[2017-01-02] MEDS: HYDROCODONE/APAP 5/325 TAB PO PRN ×6 (01:03→20:03)
[2017-01-02] MEDS: amLODIPine BESYLATE 5 MG TAB PO SCH (09:18)
[2017-01-02] MEDS: ASPIRIN 81 MG CHEWABLE TAB PO SCH (09:18)
[2017-01-02] MEDS: METOPROLOL TARTRATE 25 MG TAB PO SCH ×2 (09:19→20:45)
[2017-01-02] MEDS: FLUoxetine 10 MG CAP PO SCH (09:19)
[2017-01-02] MEDS: ENOXAPARIN 40 MG/0.4 ML SYR SC SCH (09:19)
[2017-01-02] MEDS: ATORVASTATIN CALCIUM 20 MG TAB PO SCH (09:19)
[2017-01-02] MEDS: SENNOSIDES/DOCUSATE SODIUM TAB PO PRN (09:19)
--- NOTE | 2017-01-02 09:21 | SOAPPROG ---
SOAP Progress Note Assessment/Plan: Assessment: * Perioperative cerebrovascular accident on 12/26/16 with right-sided weakness and left-sided flaccid paralysis. Physical and occupational therapy to optimize mobility and activities of daily living. Fluoxetine will be initiated at 10 mg daily for neuro recovery and titrated to 20 mg once it is established that he tolerates the medication with no adverse effects. * Dysphagia and possible cognitive involvement to be assessed and treated by Speech and Language Pathology. * Status post coronary artery bypass graft. He appears to be healing well. Continue medications as ordered out of the hospital including aspirin, atorvastatin, metoprolol and amlodipine. * Radial artery harvesting. Continue amlodipine to prevent radial artery spasm in the left wrist. * Insomnia. D/C zolpidem and melatonin as they have not worked. Trial of mirtazapine 7.5 mg tonight 01/02/17. * Constipation. Continue senna/docusate ordered from the hospital and Fleets enema and bisacodyl suppository are available as well. * Sternal precautions x4 weeks with no lifting greater than 10 pounds and avoiding pushing or pulling activities. * Wound care. Wounds may be left open to air, cleansed daily with soap and water and no creams or ointments to be used until scabs come off. * Cardiac function status post surgery. He has been fluid resuscitated as well as diuresed after his surgery. He will have daily weights. * Cough without dyspnea. Chest x-ray 01/01/17 was improving. Continue to monitor. * Postsurgical anemia. We will repeat a CBC in the morning to ensure stability. FOLLOW UP: He is to see Dr. Lebron, cardiothoracic surgeon on 01/13/2017 at 11: 30 a.m., and at surgical follow up his next appointment with electronic publications specialist Dr. Gandhi will be arranged. He should follow up with his primary care provider, Dr. Raj Beard after discharge from inpatient rehabilitation. 01/02/17 14:19 Subjective: Poor sleep last night, with anxiety. Occasional sternal discomfort with movement. O/W no complaints. Objective: Vital Signs Temp Pulse Resp BP Pulse Ox 36.5 C 97 22 H 100/60 95 01/02/17 08:00 01/02/17 08:00 01/02/17 08:00 01/02/17 08:00 01/02/17 08:00 01/01/17 01/02/17 01/03/17 05:59 05:59 05:59 Intake Total 600 Output Total 500 Balance 100 Physical Exam - Physical Exam General Appearance: WD/WN, alert, no apparent distress Respiratory: normal breath sounds, No crackles, No rhonchi, No wheezing Cardiac/Chest: regular rate, rhythm, No edema, No JVD Skin: normal color, warm/dry Neuro/Psych: alert, normal mood/affect, motor weakness (LUE & LLE), other ( Observed sliding board transfer from wheelchair to bed, 2 person max assist.) ICD10 Worksheet Patient Problems: Problems Problem Status Onset Hemiparesis Acute S/P AVR Acute S/P CABG x 3 Acute S/P aortic aneurysm repair Acute Unstable angina pectoris Acute Aortic aneurysm Chronic Bicuspid aortic valve Chronic
--- NOTE | 2017-01-02 14:25 | WOCRNPDOC ---
WOCRN Advanced Assessment Note - Skin Integrity Problem, Advanced Assess Right Heel Blister Dressing Type: Open to Air Exudate Amount: None Exudate Characteristic(s): None Integumentary Issue Intervention: Dressing Applied (for prophylaxis only) Kimberli Wound Tissue: Blanching, Intact Kimberli Wound Swelling: None Wound Bed Constitution: Intact Serous Filled Blister Site Odor: None Site Measurement - Head-to-Toe Length X Width X Depth (cm): [id number] Skin Integrity Problem Comment: Intact, serous blister noted to R heel. No fluctuance or erythema noted, and fluid appears to be reabsorbing. Surrounding tissue is intact and blanching. Applied Allevyn Life dressing for prevention, and applied off-loading heel boot. Wound care does not need to follow this patient going forward; advised to reconsult PRN. metal washing machine operator Danielle present and assisting.
[2017-01-02] MEDS ORDERED: LORazepam 0.5 MG TAB ONE (14:57)
[2017-01-02] MEDS: LORazepam 1 MG TAB PO PRN ×2 (15:12→20:43)
[2017-01-02] MEDS: MIRTAZAPINE 15 MG TAB PO SCH (20:44)
[2017-01-02] MEDS ORDERED: hydrOXYzine HCL 50 MG TAB PO PRN (21:17)
[2017-01-02] MEDS ORDERED: LORazepam 1 MG TAB PO PRN (21:17)
[2017-01-03] MEDS: HYDROCODONE/APAP 5/325 TAB PO PRN ×7 (00:45→22:58)
[2017-01-03 07:00] LABS: HEMATOCRIT 32.8 % (40.0-51.0); HEMOGLOBIN 11.3 g/dL (13.7-17.5); MEAN CELL HEMOGLOBIN 30.5 pg (27.9-34.1); MEAN CELL HEMOGLOBIN CONCENTR. 34.5 g/dL (32.4-36.7); MEAN CELL VOLUME 88.6 fL (81.5-99.8); RED BLOOD CELL COUNT 3.7 10^6/uL (4.40-6.38); RED CELL DISTRIBUTION WIDTH 12.6 % (11.5-15.2)
[2017-01-03] MEDS: ATORVASTATIN CALCIUM 20 MG TAB PO SCH (10:01)
[2017-01-03] MEDS: ENOXAPARIN 40 MG/0.4 ML SYR SC SCH (10:01)
[2017-01-03] MEDS: amLODIPine BESYLATE 5 MG TAB PO SCH (10:01)
[2017-01-03] MEDS: FLUoxetine 10 MG CAP PO SCH (10:01)
[2017-01-03] MEDS: ASPIRIN 81 MG CHEWABLE TAB PO SCH (10:01)
[2017-01-03] MEDS: METOPROLOL TARTRATE 25 MG TAB PO SCH ×2 (10:02→21:47)
[2017-01-03] MEDS: SENNOSIDES/DOCUSATE SODIUM TAB PO PRN (10:02)
--- NOTE | 2017-01-03 11:27 | SOAPPROG ---
SOAP Progress Note Assessment/Plan: Assessment: 46-year-old male who had a perioperative stroke after a three vessel coronary artery bypass graft and aortic root replacement with right-sided weakness and left-sided flaccid paralysis. Based on personal review of the MRI, he had multiple acute and subacute supratentorial infarcts more so on the right than on the left. 01/03/2017 patient has had some agitation, improved with counseling from the staff, and some short-acting benzodiazepines. Overnight, also added hydroxyzine for symptom management. Pain has been fair, he's had some pain around the sternal incision. Also, noted by nursing to have more oxygen requirement than he had previously. Otherwise his anemia is improving with a hemoglobin of 11.3 today. Plan to get a two view chest x-ray for hypoxia, will monitor closely. All medical issues are new to this provider today. * Perioperative cerebrovascular accident on 12/26/16 with right-sided weakness and left-sided flaccid paralysis. Physical and occupational therapy to optimize mobility and activities of daily living. Fluoxetine will be initiated at 10 mg daily for neuro recovery and titrated to 20 mg once it is established that he tolerates the medication with no adverse effects. * Dysphagia and possible cognitive involvement to be assessed and treated by Speech and Language Pathology. * Status post coronary artery bypass graft. He appears to be healing well. Continue medications as ordered out of the hospital including aspirin, atorvastatin, metoprolol and amlodipine. Checking chest x-ray 01/03/2017 for hypoxia. * Radial artery harvesting. Continue amlodipine to prevent radial artery spasm in the left wrist. * Insomnia. D/C zolpidem and melatonin as they have not worked. Trial of mirtazapine 7.5 mg tonight 01/02/17. * Constipation. Continue senna/docusate ordered from the hospital and Fleets enema and bisacodyl suppository are available as well. * Sternal precautions x4 weeks with no lifting greater than 10 pounds and avoiding pushing or pulling activities. Some discomfort with activity, continue current pain management regimen. * Wound care. Wounds may be left open to air, cleansed daily with soap and water and no creams or ointments to be used until scabs come off. * Cardiac function status post surgery. He has been fluid resuscitated as well as diuresed after his surgery. He will have daily weights. * Cough without dyspnea. Chest x-ray 01/01/17 was improving. Continue to monitor. * Postsurgical anemia. We will repeat a CBC in the morning to ensure stability , Was improving to 11.3 on 01/03/2017. * Anxiety: Continue symptomatic management with counseling, benzodiazepine PRN , as well as hydroxyzine PRN. Monitor. FOLLOW UP: He is to see Dr. Lebron, cardiothoracic surgeon on 01/13/2017 at 11: 30 a.m., and at surgical follow up his next appointment with general maintenance engineer Dr. Gandhi will be arranged. He should follow up with his primary care provider, Dr. Raj Beard after discharge from inpatient rehabilitation. 01/03/17 11:24 01/03/17 11:27 Subjective: CC: sitting discomfort, hypoxia No acute events overnight. There was some concern from nursing about some agitation and anxiety, improved with counseling and PRN benzodiazepine for symptom management. The patient is also had some discomfort in his wheelchair, working with staff to resolve. He has a new oxygen requirement noted by nursing , hemoglobin is improving. Mild sternal chest pain, associated with pulling with his arms. Try to reinforce external precautions. Otherwise he denies chest pain associated with exertion, shortness of breath, or other new symptoms. Objective: Vital Signs Temp Pulse Resp BP Pulse Ox 36.9 C 84 20 99/60 L 92 01/03/17 05:19 01/03/17 10:42 01/03/17 05:19 01/03/17 10:02 01/03/17 10:42 Laboratory Results 01/03/17 05:30 01/02/17 01/03/17 01/04/17 05:59 05:59 05:59 Intake Total 600 1210 Output Total 500 900 Balance 100 310 Physical Exam - Physical Exam General Appearance: alert, mild distress EENT: No scleral icterus (R), No scleral icterus (L) Respiratory: lungs clear, normal breath sounds, No respiratory distress, No accessory muscle use Cardiac/Chest: normal peripheral pulses, regular rate, rhythm, systolic murmur, No edema Abdomen: normal bowel sounds, non-tender, soft Skin: normal color, warm/dry, No cyanosis Extremities: non-tender, No swelling Neuro/Psych: alert, normal mood/affect (with mild agitation) ICD10 Worksheet Patient Problems: Problems Problem Status Onset Hemiparesis Acute S/P AVR Acute S/P CABG x 3 Acute S/P aortic aneurysm repair Acute Unstable angina pectoris Acute Aortic aneurysm Chronic Bicuspid aortic valve Chronic
[2017-01-03] MEDS: hydrOXYzine HCL 25 MG TAB PO PRN ×2 (13:06→19:11)
[2017-01-03] MEDS: BISACODYL 10 MG SUPP PR PRN (16:57)
[2017-01-03] MEDS: POLYETHYLENE GLYCOL 3350 17 GM PKT PO SCH (16:57)
[2017-01-03] MEDS: MIRTAZAPINE 15 MG TAB PO SCH (21:46)
[2017-01-04] MEDS: hydrOXYzine HCL 25 MG TAB PO PRN ×2 (01:15→19:09)
[2017-01-04] MEDS ORDERED: oxyCODONE IR 15 MG TAB PO ONE (02:00)
[2017-01-04] MEDS ORDERED: oxyCODONE IR 15 MG TAB ONE (02:10)
[2017-01-04] MEDS: morphINE SR 15 MG TAB PO SCH ×2 (10:18→20:53)
[2017-01-04] MEDS: HYDROCODONE/APAP 5/325 TAB PO PRN (10:18)
[2017-01-04] MEDS: amLODIPine BESYLATE 5 MG TAB PO SCH (10:20)
[2017-01-04] MEDS: FLUoxetine 10 MG CAP PO SCH (10:21)
[2017-01-04] MEDS: METOPROLOL TARTRATE 25 MG TAB PO SCH ×2 (10:21→20:53)
[2017-01-04] MEDS: ASPIRIN 81 MG CHEWABLE TAB PO SCH (10:21)
[2017-01-04] MEDS: ATORVASTATIN CALCIUM 20 MG TAB PO SCH (10:21)
[2017-01-04] MEDS: ENOXAPARIN 40 MG/0.4 ML SYR SC SCH (10:21)
[2017-01-04] MEDS: POLYETHYLENE GLYCOL 3350 17 GM PKT PO SCH (10:22)
--- NOTE | 2017-01-04 12:00 | SOAPPROG ---
SOAP Progress Note Assessment/Plan: Assessment: 46-year-old male who had a perioperative stroke after a three vessel coronary artery bypass graft and aortic root replacement with right-sided weakness and left-sided flaccid paralysis. Based on personal review of the MRI, he had multiple acute and subacute supratentorial infarcts more so on the right than on the left. 01/04/2017- Patient is having difficulty with therapies primarily because of anxiety, often triggered by pain. Goal is to avoid benzodiazepines, and treat pain symptomatically, Restructuring his pain medications. Today complaining mostly of muscular skeletal chest pain and discomfort with positioning. Chest x -ray personally reviewed, improving. Also plan to increase the fluoxetine for optimal neural recovery. * Perioperative cerebrovascular accident on 12/26/16 with right-sided weakness and left-sided flaccid paralysis. Physical and occupational therapy to optimize mobility and activities of daily living. Fluoxetine 20 mg * Dysphagia and possible cognitive involvement to be assessed and treated by Speech and Language Pathology. * Status post coronary artery bypass graft. He appears to be healing well. Continue medications as ordered out of the hospital including aspirin, atorvastatin, metoprolol and amlodipine. * Radial artery harvesting. Continue amlodipine to prevent radial artery spasm in the left wrist. * Insomnia. D/C zolpidem and melatonin as they have not worked. Trial of mirtazapine 7.5 mg tonight 01/02/17. * Constipation. Continue senna/docusate ordered from the hospital and Fleets enema and bisacodyl suppository are available as well. * Sternal precautions x4 weeks with no lifting greater than 10 pounds and avoiding pushing or pulling activities. Pain will be treated with standing dose of acetaminophen, as well as addition of long-acting morphine at 15 mg BID. Switching from [place] to oxycodone 10 mg Q4 hours PRN. * Wound care. Wounds may be left open to air, cleansed daily with soap and water and no creams or ointments to be used until scabs come off. * Cardiac function status post surgery. He has been fluid resuscitated as well as diuresed after his surgery. He will have daily weights. * Cough without dyspnea. Chest x-ray 01/01/17 was improving. Continue to monitor. * Postsurgical anemia. We will repeat a CBC in the morning to ensure stability , Was improving to 11.3 on 01/03/2017. * Anxiety: Continue symptomatic management with counseling, benzodiazepine PRN , as well as hydroxyzine PRN (increased to 100 mg dose). Monitor. FOLLOW UP: He is to see Dr. Lebron, cardiothoracic surgeon on 01/13/2017 at 11: 30 a.m., and at surgical follow up his next appointment with superintendent tests Dr. Gandhi will be arranged. He should follow up with his primary care provider, Dr. Raj Beard after discharge from inpatient rehabilitation. 01/03/17 11:24 01/03/17 11:27 01/04/17 11:52 Subjective: CC: pain and anxiety No acute events overnight, however the patient was somewhat anxious and agitated with muscular skeletal chest pain. Pain was primarily on the right side , relieved by pressure either by himself or by a nurse. Vital signs were stable. Patient will occasionally get anxious with pain, which would result in some diaphoresis and feeling hot, and then when the pain is treated, he gets cold. Spoke with his at the bedside today as well, yesterday she requested that the patient not be given benzodiazepines because he was somewhat somnolent yesterday. Unfortunately, overnight, he was quite anxious. Hydroxyzine at 50 mg has not been particularly helpful. Pain has been incompletely controlled, but oxycodone 15 mg times one overnight was helpful. No new chest pain, no shortness of breath, no lightheadedness, no new numbness, tingling, or weakness. Continues to have dense left-sided hemiparesis. Objective: Vital Signs Temp Pulse Resp BP Pulse Ox 36 C 91 18 113/67 98 01/04/17 08:00 01/04/17 10:21 01/04/17 08:00 01/04/17 10:21 01/04/17 08:00 Laboratory Results 01/03/17 05:30 01/03/17 01/04/17 01/05/17 05:59 05:59 05:59 Intake Total 1210 980 Output Total 900 550 Balance 310 430 Physical Exam - Physical Exam General Appearance: WD/WN, alert, mild distress, anxiety EENT: No scleral icterus (R), No scleral icterus (L) Respiratory: lungs clear, normal breath sounds, other (tachypnic when appearing anxious), No respiratory distress, No accessory muscle use Cardiac/Chest: normal peripheral pulses, regular rate, rhythm, No edema Skin: normal color, warm/dry, No cyanosis Extremities: non-tender, No pedal edema, No calf tenderness, No swelling Neuro/Psych: alert, motor weakness (left dense hemiparesis, also has right gaze preference. ), other (logical) ICD10 Worksheet Patient Problems: Problems Problem Status Onset Hemiparesis Acute S/P AVR Acute S/P CABG x 3 Acute S/P aortic aneurysm repair Acute Unstable angina pectoris Acute Aortic aneurysm Chronic Bicuspid aortic valve Chronic
[2017-01-04] MEDS: ACETAMINOPHEN 325 MG TAB PO PRN ×2 (12:36→19:08)
[2017-01-04] MEDS: oxyCODONE IR 5 MG TAB PO PRN ×3 (12:37→22:36)
[2017-01-04] MEDS: MIRTAZAPINE 15 MG TAB PO SCH (20:53)
[2017-01-04] MEDS: CALCIUM CARBONATE 500 MG CHEWABLE TAB PO PRN (20:53)
[2017-01-05] MEDS: hydrOXYzine HCL 25 MG TAB PO PRN (01:46)
[2017-01-05] MEDS: CALCIUM CARBONATE 500 MG CHEWABLE TAB PO PRN (01:51)
[2017-01-05] MEDS: oxyCODONE IR 5 MG TAB PO PRN ×2 (08:07→21:52)
[2017-01-05] MEDS: morphINE SR 15 MG TAB PO SCH ×2 (08:08→21:51)
[2017-01-05] MEDS ORDERED: FLUoxetine 20 MG CAP PO SCH (09:00)
--- NOTE | 2017-01-05 10:10 | SOAPPROG ---
SOAP Progress Note Assessment/Plan: Assessment: * Perioperative cerebrovascular accident on 12/26/16 with right-sided weakness and left-sided flaccid paralysis. Initial FIM 32. Mod - max A of 2 for bed mobility. Transfers by Mamie; PT can transfer him mod - max A of 2 with sliding board. Sitting balance CGA. Dressing max A. L hemineglect. Continue PT & OT to optimize mobility and activities of daily living. Fluoxetine was initiated at 10 mg daily for neuro recovery and was to be titrated to 20 mg today 01/05/17 but he's not tolerating it with increased anxiety +/- akathisia; will D/C 01/05/17. * Cognitive impairment with deficit to attn, new learning, executive funciton, and noted to be perseverative. May be complicated by anxiety, benzodiazepine and anticholinergic hydroxyzine, insomnia. Continue Speech and Language Pathology. * Anxiety/akathisia. D/C hydroxyzine due to adverse effects of constipation and dry mouth. Psychiatry consult. * Insomnia. D/C zolpidem and melatonin as they have not worked. Mirtazapine 7.5 mg 01/02/17 is not helping. Psychiatry consult * Constipation. Continue senna/docusate ordered from the hospital and Fleets enema and bisacodyl suppository are available as well. Add polyethylene glycol QD. * Pain management. Used 50 mg hydrocodone on 01/04/17; changed to morphine SR 15 mg BID on 01/05/17 and oxycodone of which he used 30 mg on 01/05/17. Pain appears better-controlled. Chronic/stable conditions: * Cardiac function status post surgery. He has been fluid resuscitated as well as diuresed after his surgery. He will have daily weights. D/C fluid restriction 01/05/17. * Status post coronary artery bypass graft. He appears to be healing well. Continue medications as ordered out of the hospital including aspirin, atorvastatin, metoprolol and amlodipine. * Radial artery harvesting. Continue amlodipine to prevent radial artery spasm in the left wrist. * Sternal precautions x4 weeks with no lifting greater than 10 pounds and avoiding pushing or pulling activities. * Wound care. Wounds may be left open to air, cleansed daily with soap and water and no creams or ointments to be used until scabs come off. * Cough without dyspnea. Chest x-ray 01/01/17 was improving. Continues to improve on CXR 01/03/17. Continue to monitor. * Postsurgical anemia. We will repeat a CBC in the morning to ensure stability. FOLLOW UP: He is to see Dr. Barragan, cardiothoracic surgeon on 01/13/2017 at 11: 30 a.m., and at surgical follow up his next appointment with cable assembler and swager Dr. Gandhi will be arranged. He should follow up with his primary care provider, Dr. Raj Beard after discharge from inpatient rehabilitation. Attended staffing, 15 min. D/W case mgmt, nursing, PT, OT, TECHNICAL PROJECT LEAD. Tentative discharge of 02/13/17, depending on progress. 01/05/17 15:50 Subjective: C/O dry mouth and difficulty swallowing because of it. C/O insomnia, anxiety and urge to move. Has constipation X 2 days and PT noted distended abdomen. Was oversedated Thursday morning and anxiolytic was changed form lorazepam to hydroxyzine. Objective: Vital Signs Temp Pulse Resp BP Pulse Ox 36.9 C 99 22 H 113/66 91 L 01/05/17 07:53 01/05/17 07:53 01/05/17 07:53 01/05/17 07:53 01/05/17 07:53 Laboratory Results 01/03/17 05:30 01/04/17 01/05/17 01/06/17 05:59 05:59 05:59 Intake Total 980 1550 Output Total 550 2000 250 Balance 430 -450 -250 - Time Spent With Patient Time Spent With Patient: Greater than 35 min floor time today, including more than 50% of time in coordination of care during staffing, and counseling patient. Physical Exam - Physical Exam General Appearance: WD/WN, alert, no apparent distress Respiratory: normal breath sounds, No crackles, No rhonchi, No wheezing Cardiac/Chest: regular rate, rhythm, No edema Abdomen: normal bowel sounds, non-tender, soft, distended Neuro/Psych: alert, oriented x 3, motor weakness (LUE and LLE) ICD10 Worksheet Patient Problems: Problems Problem Status Onset Hemiparesis Acute S/P AVR Acute S/P CABG x 3 Acute S/P aortic aneurysm repair Acute Unstable angina pectoris Acute Aortic aneurysm Chronic Bicuspid aortic valve Chronic
[2017-01-05] MEDS: ENOXAPARIN 40 MG/0.4 ML SYR SC SCH (10:12)
[2017-01-05] MEDS: POLYETHYLENE GLYCOL 3350 17 GM PKT PO SCH (10:12)
[2017-01-05] MEDS: amLODIPine BESYLATE 5 MG TAB PO SCH (10:14)
[2017-01-05] MEDS: ATORVASTATIN CALCIUM 20 MG TAB PO SCH (10:14)
[2017-01-05] MEDS: ASPIRIN 81 MG CHEWABLE TAB PO SCH (10:14)
[2017-01-05] MEDS: METOPROLOL TARTRATE 25 MG TAB PO SCH ×2 (10:15→21:50)
[2017-01-05] MEDS: BISACODYL 10 MG SUPP PR PRN (10:43)
[2017-01-05] MEDS: QUEtiapine FUMARATE 50 MG TAB PO SCH (21:50)
[2017-01-05] MEDS: MIRTAZAPINE 15 MG TAB PO SCH (21:50)
--- NOTE | 2017-01-05 22:37 | BCON ---
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 CONSULTATIVE REQUEST: Psychiatry was asked to consult the patient for complaints of anxiety/agitation symptoms while awake as well as insomnia complaints. HISTORY OF PRESENT ILLNESS: As referenced above, the patient was admitted for complaints of chest pain to [facility] as a medical inpatient on 12/25/2016. Ischemic workup included a stress test which indicated high risk for ischemic injury, cardiac catheterization which showed 99% stenosis of patient's proximal LAD and significant stenosis in his right LAD. An echocardiogram revealed a bicuspid aortic valve and dilated proximal aorta. The patient underwent three-vessel coronary artery bypass graft, aortic root replacement, and ligation of a left atrial appendage. The patient suffered a perioperative CVA with infarcts in both hemispheres-right greater than left as well as involvement of his left motor strip. The CVA left the patient with left hemiparesis and right lower extremity weakness. The patient stabilized postoperatively and was transferred to the inpatient rehabilitation service on 01/01/2017. HOSPITAL COURSE: On admission to the rehab service, the patient's mental status evidenced alertness and orientation x3. He also presented with flaccid paralysis of his left upper and lower extremities, relatively normal strength in his right upper extremity, and significant weakness in his right lower extremity which did feature positive antigravity strength. He was also noted to have diminished attention and concentration, and perseverative speech. Since admission, the patient has engaged in a full rehabilitation program utilizing PT, OT, and speech rehabilitative services. The patient was initially placed on Prozac 10 mg which was increased to 20 mg but then discontinued today secondary to his breakthrough anxiety/agitation and intermittent akathisia. The patient also had trials of low-dose Ativan on a q.4 to q.6 p.r.n. basis. This was apparently discontinued at 's request secondary to her concern about sedation. The patient was also placed on a trial of hydroxyzine, up dosed to 100 mg. This apparently did not help diminish the patient's anxiety and created dry mouth complaints. For patient's insomnia, he has also had trials of Ambien, melatonin, and is currently on Remeron 7.5 mg h.s. His insomnia continues to be a problem. Nursing reports describe the patient as continuing to experience generalized anxiety, intermittent elements of motor agitation during the day. He has continued to show residual cognitive impairment involving ongoing diminished attention, deficits in acquiring new learning, deficits in executive functioning, and perseverative speech. CURRENT MEDICATIONS: Include Remeron 7.5 mg h.s., morphine sulfate 15 mg twice daily, and oxycodone 10 mg on a q.4 p.r.n. basis. It is thought the patient's pain is well controlled. MENTAL STATUS EXAM: On direct exam, the patient is alert and engages the contact cooperatively. He is slightly difficult to understand his verbal responses. He does acknowledge the problems sleeping and with anxiety. He associates feeling anxious with complaints of dry mouth. His thought process appears to be concrete and primarily "here and now" focused." He does not evidence overt anxiety on my exam. There is no evidence overtly for psychosis. The patient's mood state appears mildly dysphoric and affective expression slightly blunted and range constricted. The patient does appear to understand I am a consulting doctor called to help control his anxiety and improve his sleep. He understands I will be conferring with his nursing staff and will have medication recommendations with which I will discuss with Dr. Crespo. IMPRESSION: Post stroke generalized anxiety, intermittent motor agitation, disrupted sleep pattern in the context of the patient's recent three-vessel CABG. The patient has significant cognitive impairment but is able to engage his rehabilitation program cooperatively, is able to follow directions and sustain his involvement with PT, OT, and Speech. There is no known history of psychiatric problems and/or treatment interventions. This will be clarified more definitively with further collateral information. RECOMMENDATIONS: Possible medication strategies could include low-dose Seroquel at 25 mg three times daily and 50 mg h.s. for anxiolytic and sleep facilitation. This regimen could be added to the current Remeron 7.5 mg h.s. Remeron could also be up dosed to 15 mg while still adding the trial of Seroquel. Ativan in low doses could also be added on a standing and p.r.n. basis if the Seroquel/Remeron regimen is ineffective. Neurontin can also be an effective anxiolytic if the initial trials as referenced are ineffective. I will discuss with Dr. Crespo prior to finalizing orders and case review with Dr Crespo is currently pending. Thank you for this interesting consultation. I can be reached at [phone]. /[id number]/MODL MTDD
[2017-01-06] MEDS: ASPIRIN 81 MG CHEWABLE TAB PO SCH (08:23)
[2017-01-06] MEDS: ATORVASTATIN CALCIUM 20 MG TAB PO SCH (08:23)
[2017-01-06] MEDS: ENOXAPARIN 40 MG/0.4 ML SYR SC SCH (08:24)
[2017-01-06] MEDS: morphINE SR 15 MG TAB PO SCH ×2 (08:24→21:19)
[2017-01-06] MEDS: oxyCODONE IR 5 MG TAB PO PRN ×2 (08:24→21:19)
[2017-01-06] MEDS: ACETAMINOPHEN 325 MG TAB PO PRN (08:25)
[2017-01-06] MEDS: POLYETHYLENE GLYCOL 3350 17 GM PKT PO SCH (08:25)
[2017-01-06] MEDS: QUEtiapine FUMARATE 25 MG TAB PO SCH ×3 (08:25→17:23)
[2017-01-06] MEDS: SENNOSIDES/DOCUSATE SODIUM TAB PO PRN (08:26)
[2017-01-06] MEDS: METOPROLOL TARTRATE 25 MG TAB PO SCH ×2 (09:01→21:19)
[2017-01-06] MEDS: amLODIPine BESYLATE 5 MG TAB PO SCH (09:05)
--- NOTE | 2017-01-06 10:07 | SOAPPROG ---
SOAP Progress Note Assessment/Plan: Assessment: * Perioperative cerebrovascular accident on 12/26/16 with right-sided weakness and left-sided flaccid paralysis. Initial FIM 32. Mod - max A of 2 for bed mobility. Transfers by Mamie; PT can transfer him mod - max A of 2 with sliding board. Sitting balance CGA. Dressing max A. L hemineglect. Continue PT & OT to optimize mobility and activities of daily living. Fluoxetine was initiated at 10 mg daily for neuro recovery and was to be titrated to 20 mg today 01/05/17 but he did not tolerating it with increased anxiety +/- akathisia ; D/C'd 01/05/17. * Cognitive impairment with deficit to attn, new learning, executive function, and noted to be perseverative. May be complicated by anxiety, benzodiazepine and anticholinergic hydroxyzine, insomnia. Continue Speech and Language Pathology. * Anxiety/akathisia. D/C'd hydroxyzine 01/05/17 due to adverse effects of constipation and dry mouth. Appreciate the help of psychiatry. Much improved with low-dose quetiapine. * Insomnia. D/C zolpidem and melatonin as they have not worked. Mirtazapine 7.5 mg 01/02/17 is not helping. Much improved with quetiapine. * Constipation. Continue senna/docusate ordered from the hospital and Fleets enema and bisacodyl suppository are available as well. Add polyethylene glycol QD. * Pain management. Used 50 mg hydrocodone on 01/04/17; changed to morphine SR 15 mg BID on 01/05/17 and oxycodone of which he used 30 mg on 01/04/17 and 20 mg on 01/05/17. Pain appears controlled. * Hypotension. Amlodipine held this morning 01/06/17. Will change metoprolol to 12.5 mg BID Reduce dose of amlodipine and resume in AM 01/07/17. CBC with mild leukocytosis and improving anemia, BMP & UA unremarkable. Chronic/stable conditions: * Cardiac function status post surgery. He has been fluid resuscitated as well as diuresed after his surgery. He will have daily weights. D/C fluid restriction 01/05/17. * Status post coronary artery bypass graft. He appears to be healing well. Continue medications as ordered out of the hospital including aspirin, atorvastatin, metoprolol and amlodipine. * Radial artery harvesting. Continue amlodipine to prevent radial artery spasm in the left wrist. * Sternal precautions x4 weeks with no lifting greater than 10 pounds and avoiding pushing or pulling activities. * Wound care. Wounds may be left open to air, cleansed daily with soap and water and no creams or ointments to be used until scabs come off. * Cough without dyspnea. Chest x-ray 01/01/17 was improving. Continues to improve on CXR 01/03/17. Continue to monitor. * Postsurgical anemia. We will repeat a CBC in the morning to ensure stability. FOLLOW UP: He is to see Dr. Barragan, cardiothoracic surgeon on 01/13/2017 at 11: 30 a.m., and at surgical follow up his next appointment with bindery worker Dr. Gandhi will be arranged. He should follow up with his primary care provider, Dr. Raj Beard after discharge from inpatient rehabilitation. Tentative discharge of 02/13/17, depending on progress. 01/06/17 16:24 Subjective: No complaints this morning. Slept well. Feels less fidgety. No cough/dyspnea , f/c. Objective: Vital Signs Temp Pulse Resp BP Pulse Ox 37.1 C 80 18 80/60 L 93 01/06/17 05:54 01/06/17 09:01 01/06/17 05:54 01/06/17 09:05 01/06/17 05:54 Laboratory Results 01/03/17 05:30 01/05/17 01/06/17 01/07/17 05:59 05:59 05:59 Intake Total 1550 1706 340 Output Total 2000 850 Balance -450 856 340 Physical Exam - Physical Exam General Appearance: WD/WN, alert, no apparent distress Respiratory: normal breath sounds, decreased breath sounds (LLL), No crackles, No rhonchi, No wheezing Cardiac/Chest: regular rate, rhythm, JVD, No edema Skin: other (Sternal incision with eschar, no erytehma. Incisions from drains upper abd with serous drainage, no erythema, NT.) Neuro/Psych: alert, normal mood/affect, oriented x 3, motor weakness (LUE and LLE. Sittiing on edge of bed with therapy, maintaining seated balance with R hand on bed rail.) ICD10 Worksheet Patient Problems: Problems Problem Status Onset Hemiparesis Acute S/P AVR Acute S/P CABG x 3 Acute S/P aortic aneurysm repair Acute Unstable angina pectoris Acute Aortic aneurysm Chronic Bicuspid aortic valve Chronic
[2017-01-06 11:37] LABS: % IMMATURE GRANULYOCYTES 1.9 % (0.0-1.1); ABSOLUTE IMMATURE GRANULOCYTES 0.19 10^3/uL (0.00-0.10); ADD DIFF? NO; ADD MORPH? NO; ADD SCAN? NO; ATYPICAL LYMPHOCYTE FLAG 20 (0-99); FRAGMENT RBC FLAG 0 (0-99); HEMATOCRIT 36.3 % (40.0-51.0); HEMOGLOBIN 12.1 g/dL (13.7-17.5); LEFT SHIFT FLG 20 (0-99); LIPEMIA HEMOLYSIS FLAG 80 (0-99); MEAN CELL HEMOGLOBIN 30.4 pg (27.9-34.1); MEAN CELL HEMOGLOBIN CONCENTR. 33.3 g/dL (32.4-36.7); MEAN CELL VOLUME 91.2 fL (81.5-99.8); MEAN PLATELET VOLUME 9.9 fL (8.7-11.7); PLATELET CLUMPS FLAG 0 (0-99); PLATELET COUNT 407 10^3/uL (150-400); RED BLOOD CELL COUNT 3.98 10^6/uL (4.40-6.38); RED CELL DISTRIBUTION WIDTH 12.5 % (11.5-15.2)
[2017-01-06 11:51] LABS: ANION GAP 10 mEq/L (8-16); CALCIUM 9.3 mg/dL (8.5-10.4); CARBON DIOXIDE 30 mEq/l (22-31); CHLORIDE 99 mEq/L (97-110); CREATININE 0.8 mg/dL (0.7-1.3); GLOMERULAR FILTRATION RATE > 60; GLUCOSE 137 mg/dL (70-100); POTASSIUM 5.1 mEq/L (3.5-5.2); SODIUM 139 mEq/L (134-144)
[2017-01-06 16:07] LABS: COLOR AMBER; LEUKOCYTE ESTERASE,URINE NEGATIVE (NEGATIVE); NITRITE,URINE NEGATIVE (NEGATIVE)
[2017-01-06] MEDS: QUEtiapine FUMARATE 50 MG TAB PO SCH (21:19)
[2017-01-06] MEDS: MIRTAZAPINE 15 MG TAB PO SCH (21:19)
[2017-01-07] MEDS: oxyCODONE IR 5 MG TAB PO PRN ×5 (01:42→20:30)
[2017-01-07] MEDS: ENOXAPARIN 40 MG/0.4 ML SYR SC SCH (08:37)
[2017-01-07] MEDS: ATORVASTATIN CALCIUM 20 MG TAB PO SCH (08:38)
[2017-01-07] MEDS: QUEtiapine FUMARATE 25 MG TAB PO SCH ×3 (08:38→17:37)
[2017-01-07] MEDS: amLODIPine BESYLATE 5 MG TAB PO SCH (08:39)
[2017-01-07] MEDS: ASPIRIN 81 MG CHEWABLE TAB PO SCH (08:39)
[2017-01-07] MEDS: POLYETHYLENE GLYCOL 3350 17 GM PKT PO SCH (08:40)
[2017-01-07] MEDS: METOPROLOL TARTRATE 25 MG TAB PO SCH ×2 (08:41→20:22)
[2017-01-07] MEDS: morphINE SR 15 MG TAB PO SCH ×2 (08:42→20:23)
--- NOTE | 2017-01-07 16:23 | SOAPPROG ---
SOAP Progress Note Assessment/Plan: Assessment: * Perioperative cerebrovascular accident on 12/26/16 with right-sided weakness and left-sided flaccid paralysis. Initial FIM 32 on 01/05/17. Mod - max A of 2 for bed mobility. Transfers by Mamie; PT can transfer him mod - max A of 2 with sliding board. Sitting balance CGA. Dressing max A. L hemineglect. Continue PT & OT to optimize mobility and activities of daily living. Fluoxetine was initiated at 10 mg daily for neuro recovery and was to be titrated to 20 mg today 01/05/17 but he did not tolerating it with increased anxiety +/- akathisia; D/C'd 01/05/17. * Cognitive impairment with deficit to attn, new learning, executive function, and noted to be perseverative. May be complicated by anxiety, benzodiazepine and anticholinergic hydroxyzine, insomnia. Continue Speech and Language Pathology. * Anxiety/akathisia. D/C'd hydroxyzine 01/05/17 due to adverse effects of constipation and dry mouth. Appreciate the help of psychiatry. Much improved with low-dose quetiapine. * Insomnia. D/C zolpidem and melatonin as they have not worked. Mirtazapine 7.5 mg 01/02/17 is not helping. Much improved with quetiapine. * Constipation. Continue senna/docusate ordered from the hospital and Fleets enema and bisacodyl suppository are available as well. Added polyethylene glycol QD 01/03/17. Observe for normalization. * Pain management. Used 50 mg hydrocodone on 01/04/17; changed to morphine SR 15 mg BID on 01/05/17 and oxycodone of which he used 30 mg on 01/04/17 and 20 mg on 01/05/17. Pain appears controlled. * Hypotension. Amlodipine held morning of 01/06/17. Will change metoprolol to 12.5 mg BID Reduced dose of amlodipine to 2.5 mg and resumed in AM 01/07/17. CBC with mild leukocytosis and improving anemia, BMP & UA unremarkable. * Muscle spasm R thorax? No S/Sx respiratory compromise. Continue to monitor. Chronic/stable conditions: * Cardiac function status post surgery. He has been fluid resuscitated as well as diuresed after his surgery. He will have daily weights. D/C fluid restriction 01/05/17. * Status post coronary artery bypass graft. He appears to be healing well. Continue medications as ordered out of the hospital including aspirin, atorvastatin, metoprolol and amlodipine. * Radial artery harvesting. Continue amlodipine to prevent radial artery spasm in the left wrist. * Sternal precautions x4 weeks with no lifting greater than 10 pounds and avoiding pushing or pulling activities. * Wound care. Wounds may be left open to air, cleansed daily with soap and water and no creams or ointments to be used until scabs come off. * Cough without dyspnea. Chest x-ray 01/01/17 was improving. Continues to improve on CXR 01/03/17. Continue to monitor. * Postsurgical anemia. We will repeat a CBC in the morning to ensure stability. FOLLOW UP: He is to see Dr. Barragan, cardiothoracic surgeon on 01/13/2017 at 11: 30 a.m., and at surgical follow up his next appointment with overedge sewer Dr. Gandhi will be arranged. He should follow up with his primary care provider, Dr. Raj Beard after discharge from inpatient rehabilitation. Tentative discharge of 02/13/17, depending on progress. 01/07/17 16:26 Subjective: Slept well until 0430 when he had a bowel movement and needed to be cleaned up. Had R thoracic muscle spasm this morning "between the ribs." reports he's had spasms like this at home prior to hospitalization. Denies pleuritic symptoms presently, and no dyspnea or cough. Objective: Vital Signs Temp Pulse Resp BP Pulse Ox 36.8 C 88 17 110/58 L 95 01/07/17 05:46 01/07/17 08:41 01/07/17 05:46 01/07/17 08:41 01/07/17 05:46 Laboratory Results 01/06/17 10:45 01/06/17 10:45 01/06/17 01/07/17 01/08/17 05:59 05:59 05:59 Intake Total 1706 990 236 Output Total 850 1100 Balance 856 -110 236 Physical Exam - Physical Exam General Appearance: WD/WN, alert, no apparent distress Respiratory: normal breath sounds, No crackles, No rhonchi, No wheezing Cardiac/Chest: regular rate, rhythm, No edema Abdomen: non-tender, soft, distended, No normal bowel sounds (hypoactive) ICD10 Worksheet Patient Problems: Problems Problem Status Onset Hemiparesis Acute S/P AVR Acute S/P CABG x 3 Acute S/P aortic aneurysm repair Acute Unstable angina pectoris Acute Aortic aneurysm Chronic Bicuspid aortic valve Chronic
[2017-01-07] MEDS: MIRTAZAPINE 15 MG TAB PO SCH (20:23)
[2017-01-07] MEDS: QUEtiapine FUMARATE 50 MG TAB PO SCH (20:24)
[2017-01-07] MEDS: ACETAMINOPHEN 325 MG TAB PO PRN (23:54)
[2017-01-08] MEDS: oxyCODONE IR 5 MG TAB PO PRN (00:12)
[2017-01-08] MEDS: BISACODYL 10 MG SUPP PR PRN (07:46)
[2017-01-08] MEDS: ASPIRIN 81 MG CHEWABLE TAB PO SCH (08:45)
[2017-01-08] MEDS: QUEtiapine FUMARATE 25 MG TAB PO SCH ×3 (08:46→17:55)
[2017-01-08] MEDS: ATORVASTATIN CALCIUM 20 MG TAB PO SCH (08:46)
[2017-01-08] MEDS: METOPROLOL TARTRATE 25 MG TAB PO SCH ×2 (08:46→20:12)
[2017-01-08] MEDS: morphINE SR 15 MG TAB PO SCH ×2 (08:46→20:11)
[2017-01-08] MEDS: amLODIPine BESYLATE 5 MG TAB PO SCH (08:48)
[2017-01-08] MEDS: ENOXAPARIN 40 MG/0.4 ML SYR SC SCH (08:51)
[2017-01-08] MEDS: POLYETHYLENE GLYCOL 3350 17 GM PKT PO SCH (08:54)
--- NOTE | 2017-01-08 10:12 | SOAPPROG ---
TANYA Progress Note Assessment/Plan: Assessment: 46-year-old male who had a perioperative stroke after a three vessel coronary artery bypass graft and aortic root replacement with right-sided weakness and left-sided flaccid paralysis. Based on personal review of the MRI, he had multiple acute and subacute supratentorial infarcts more so on the right than on the left. 01/08/2017 significant anxiety is impairing his ability to participate in therapies, and is interfering with sleep. Discuss plan to increase Remeron with him, he is okay with that. Also discussed recommendation from psychiatry to consider short acting Ativan as necessary for anxiety management. Patient is reluctant to try it, had previously requested cessation of another benzodiazepine. I counseled him that I think it may be worthwhile to consider especially given the severity of his anxiety/panic attacks. He will discuss with his , I made myself available to discuss as well and answered questions. A total of 15 minutes was spent in the care of the patient on the floor today, the majority of which is spent in the counseling and coordination of care regarding anxiety management. Remainder of plan below is unchanged. * Perioperative cerebrovascular accident on 12/26/16 with right-sided weakness and left-sided flaccid paralysis. Initial FIM 32 on 01/05/17. Mod - max A of 2 for bed mobility. Transfers by Mamie; PT can transfer him mod - max A of 2 with sliding board. Sitting balance CGA. Dressing max A. L hemineglect. Continue PT & OT to optimize mobility and activities of daily living. Fluoxetine was initiated at 10 mg daily for neuro recovery and was to be titrated to 20 mg 01/05/17 but he did not tolerating it with increased anxiety +/ - akathisia; D/C'd 01/05/17. * Cognitive impairment with deficit to attn, new learning, executive function, and noted to be perseverative. May be complicated by anxiety, benzodiazepine and anticholinergic hydroxyzine, insomnia. Continue Speech and Language Pathology. * Anxiety/akathisia. D/C'd hydroxyzine 01/05/17 due to adverse effects of constipation and dry mouth. Appreciate the help of psychiatry. Much improved with low-dose quetiapine. * Insomnia. D/C zolpidem and melatonin as they have not worked. Mirtazapine 7.5 mg 01/02/17 is not helping. Much improved with quetiapine. Increased mirtazapine to 15 mg PO QHS on 01/08/2017 * Constipation. Continue senna/docusate ordered from the hospital and Fleets enema and bisacodyl suppository are available as well. Added polyethylene glycol QD 01/03/17. Observe for normalization. * Pain management. Used 50 mg hydrocodone on 01/04/17; changed to morphine SR 15 mg BID on 01/05/17 and oxycodone of which he used 30 mg on 01/04/17 and 20 mg on 01/05/17. Pain appears controlled. * Hypotension. Amlodipine held morning of 01/06/17. Will change metoprolol to 12.5 mg BID Reduced dose of amlodipine to 2.5 mg and resumed in AM 01/07/17. CBC with mild leukocytosis and improving anemia, BMP & UA unremarkable. * Muscle spasm R thorax? No S/Sx respiratory compromise. Continue to monitor. Chronic/stable conditions: * Cardiac function status post surgery. He has been fluid resuscitated as well as diuresed after his surgery. He will have daily weights. D/C fluid restriction 01/05/17. * Status post coronary artery bypass graft. He appears to be healing well. Continue medications as ordered out of the hospital including aspirin, atorvastatin, metoprolol and amlodipine. * Radial artery harvesting. Continue amlodipine to prevent radial artery spasm in the left wrist. * Sternal precautions x4 weeks with no lifting greater than 10 pounds and avoiding pushing or pulling activities. * Wound care. Wounds may be left open to air, cleansed daily with soap and water and no creams or ointments to be used until scabs come off. * Cough without dyspnea. Chest x-ray 01/01/17 was improving. Continues to improve on CXR 01/03/17. Continue to monitor. * Postsurgical anemia. We will repeat a CBC in the morning to ensure stability. FOLLOW UP: He is to see Dr. Barragan, cardiothoracic surgeon on 01/13/2017 at 11: 30 a.m., and at surgical follow up his next appointment with service delivery management consultant Dr. Gandhi will be arranged. He should follow up with his primary care provider, Dr. Raj Beard after discharge from inpatient rehabilitation. Tentative discharge of 02/13/17, depending on progress. 01/03/17 11:24 01/03/17 11:27 01/04/17 11:52 01/08/17 10:08 Subjective: CC: anxiety and panic no acute events overnight. Patient continues to have sleep disrupted by anxiety and panic, he had a significant panic episode this morning, he does respond well to coaching, however he has difficulty implementing these himself. Currently on low-dose Seroquel and Remeron. Has tried a benzodiazepine in the past that has been helpful, however his spouse did not like his level of sedation and requested that it be stopped. Psychiatry previously recommended trying Ativan PRN. Otherwise, the patient denies any new shortness of breath, chest pain, new numbness, tingling, or weakness. Objective: Vital Signs Temp Pulse Resp BP Pulse Ox 37.0 C 115 H 17 100/79 93 01/08/17 06:36 01/08/17 08:46 01/08/17 06:36 01/08/17 08:48 01/08/17 06:36 Laboratory Results 01/06/17 10:45 01/06/17 10:45 01/07/17 01/08/17 01/09/17 05:59 05:59 05:59 Intake Total 990 1986 Output Total 1100 2024 200 Balance -110 -39 -200 Physical Exam - Physical Exam General Appearance: WD/WN, alert, no apparent distress Respiratory: lungs clear, normal breath sounds, No respiratory distress, No accessory muscle use Cardiac/Chest: normal peripheral pulses, regular rate, rhythm, edema Skin: normal color, warm/dry, No cyanosis, No diaphoresis Extremities: No pedal edema, No swelling Neuro/Psych: alert, normal mood/affect, other ( Dense left-sided hemiparesis with neglect) ICD10 Worksheet Patient Problems: Problems Problem Status Onset Hemiparesis Acute S/P AVR Acute S/P CABG x 3 Acute S/P aortic aneurysm repair Acute Unstable angina pectoris Acute Aortic aneurysm Chronic Bicuspid aortic valve Chronic
[2017-01-08] MEDS: LORazepam 0.5 MG TAB PO PRN ×2 (13:57→19:51)
[2017-01-08] MEDS: QUEtiapine FUMARATE 50 MG TAB PO SCH (20:11)
[2017-01-08] MEDS: MIRTAZAPINE 15 MG TAB PO SCH (20:11)
[2017-01-09] MEDS: amLODIPine BESYLATE 5 MG TAB PO SCH (08:10)
[2017-01-09] MEDS: ATORVASTATIN CALCIUM 20 MG TAB PO SCH (08:11)
[2017-01-09] MEDS: ENOXAPARIN 40 MG/0.4 ML SYR SC SCH (08:11)
[2017-01-09] MEDS: METOPROLOL TARTRATE 25 MG TAB PO SCH ×2 (08:11→20:47)
[2017-01-09] MEDS: ASPIRIN 81 MG CHEWABLE TAB PO SCH (08:11)
[2017-01-09] MEDS: oxyCODONE IR 5 MG TAB PO PRN (08:12)
[2017-01-09] MEDS: morphINE SR 15 MG TAB PO SCH ×2 (08:12→20:46)
[2017-01-09] MEDS: QUEtiapine FUMARATE 25 MG TAB PO SCH ×3 (08:12→18:21)
[2017-01-09 09:53] LABS: ANION GAP 15 mEq/L (8-16); CALCIUM 9.8 mg/dL (8.5-10.4); CARBON DIOXIDE 27 mEq/l (22-31); CHLORIDE 97 mEq/L (97-110); CREATININE 0.8 mg/dL (0.7-1.3); GLOMERULAR FILTRATION RATE > 60; GLUCOSE 127 mg/dL (70-100); POTASSIUM 4.4 mEq/L (3.5-5.2); SODIUM 139 mEq/L (134-144)
--- NOTE | 2017-01-09 10:38 | SOAPPROG ---
SOAP Progress Note Assessment/Plan: Assessment: * Perioperative cerebrovascular accident on 12/26/16 with right-sided weakness and left-sided flaccid paralysis. Initial FIM 32 on 01/05/17; gain to 45 on 01/09. Mamie T'danna per nurses; beginning squat-pivot t'danna with therapy staff. Stood today 01/09/17 with mod-max A of 2. Dresses in bed mod A. Has L neglect. Continue PT & OT to optimize mobility and activities of daily living. Fluoxetine was initiated at 10 mg daily for neuro recovery and was to be titrated to 20 mg today 01/05/17 but he did not tolerating it with increased anxiety +/- akathisia; D/C'd 01/05/17. * Cognitive impairment with deficit to memory, problem solving and initiation. Continue Speech and Language Pathology. * Tachycardia AM of 01/09/17. Panic vs cardiac/infectious/metabolic. CXR improved, BMP wnl. EKG with T inversion v1 - v3 c/w ischemia. Troponin with indeterminate elevation at 0.133 in the morning, improved to 0.083 at 1500 draw. Dw/W EMILIA Leonard for Dr. Barragan, who also consulted with Dr. Camara, Cardiology. Likely subendocardial leak related to elevated rate. * Anxiety/akathisia. D/C'd hydroxyzine 01/05/17 due to adverse effects of constipation and dry mouth. Appreciate the help of psychiatry. Much improved with low-dose quetiapine. * Insomnia. D/C zolpidem and melatonin as they have not worked. Mirtazapine 7.5 mg 01/02/17 is not helping. Improved with quetiapine but panic this morning 01/09/17. Psychiatry to see again. Counseling per HOSPICE PHYSICIAN. * Constipation. Continue senna/docusate ordered from the hospital and Fleets enema and bisacodyl suppository are available as well. Added polyethylene glycol QD 01/03/17. Schedule bisacodyl suppository at 1730 to avoid bowel program during therapy times. * Pain management. On morphine SR 15 mg BID on 01/05/17 and oxycodone of which he used 50 mg on 01/07/17 and 10 mg on 01/08/17. Pain appears controlled. * Blood pressure. On metoprolol 12.5 mg BID, and amlodipine 5 mg QD to prevent radial artery vasospasm per CT Surgery. Decrease amlodipine to 2.5 mg QD starting 01/10/17; increase metoprolol over next several days if BP tolerates re rate-related troponin leak. * Muscle spasm R thorax? No S/Sx respiratory compromise. Continue to monitor. Chronic/stable conditions: * Cardiac function status post surgery. He has been fluid resuscitated as well as diuresed after his surgery. He will have daily weights. D/C fluid restriction 01/05/17. * Status post coronary artery bypass graft. He appears to be healing well. Continue medications as ordered out of the hospital including aspirin, atorvastatin, metoprolol and amlodipine. * Radial artery harvesting. Continue amlodipine to prevent radial artery spasm in the left wrist. * Sternal precautions x4 weeks with no lifting greater than 10 pounds and avoiding pushing or pulling activities. * Wound care. Wounds may be left open to air, cleansed daily with soap and water and no creams or ointments to be used until scabs come off. * Cough without dyspnea. Chest x-ray 01/01/17 was improving. Continues to improve on CXR 01/03/17. Continue to monitor. * Postsurgical anemia. We will repeat a CBC in the morning to ensure stability. FOLLOW UP: He is to see Dr. Barragan, cardiothoracic surgeon on 01/13/2017 at 11: 30 a.m., and at surgical follow up his next appointment with stencil printer Dr. Gandhi will be arranged. He should follow up with his primary care provider, Dr. Raj Beard after discharge from inpatient rehabilitation. Attended staffing, 15 min. D/W case mgmt, nursing, PT, OT, RN PRIVATE DUTY, manager diversity, pharmacist. Tentative discharge of 02/13/17, depending on progress. 01/09/17 16:33 Subjective: Had episode of panic this morning, and feeling that he was going to . He relates it to having slept very well overnight and associating sleep with his surgery when he awoke with CVA symptoms. Pulse was 144. He feels better now. No f/c, cough/dyspnea, n/v/c/d, dysuria. Objective: Vital Signs Temp Pulse Resp BP Pulse Ox 36.6 C 144 H 23 H 102/71 94 01/09/17 07:55 01/09/17 08:11 01/09/17 08:00 01/09/17 08:11 01/09/17 07:55 Laboratory Results 01/09/17 08:50 01/09/17 08:50 01/08/17 01/09/17 01/10/17 05:59 05:59 05:59 Intake Total 19850 200 Output Total 2024 1924 Balance -39 570 200 - Time Spent With Patient Time Spent With Patient: Greater than 35 minutes floor time today, including more than 50% of time in coordination of care during staffing meeting, and counseling patient. Physical Exam - Physical Exam General Appearance: WD/WN, alert, no apparent distress, obese Respiratory: normal breath sounds, No crackles, No rhonchi, No wheezing Cardiac/Chest: regular rate, rhythm, No edema Skin: normal color, warm/dry Neuro/Psych: alert, normal mood/affect, motor weakness (L hemiplegia) ICD10 Worksheet Patient Problems: Problems Problem Status Onset Hemiparesis Acute S/P AVR Acute S/P CABG x 3 Acute S/P aortic aneurysm repair Acute Unstable angina pectoris Acute Aortic aneurysm Chronic Bicuspid aortic valve Chronic
[2017-01-09] MEDS: POLYETHYLENE GLYCOL 3350 17 GM PKT PO SCH (10:50)
--- NOTE | 2017-01-09 11:59 | CPEKG ---
Heart Rate: 99 RR Interval: 606 P-R Interval: 176 QRSD Interval: 100 QT Interval: 380 QTC Interval: 488 P [place]: 56 QRS [place]: 47 T Wave [place]: 107 EKG Severity - ABNORMAL ECG - EKG Impression: SINUS RHYTHM EKG Impression: INCOMPLETE RBBB EKG Impression: ABNORMAL T, CONSIDER ISCHEMIA, LATERAL LEADS EKG Impression: COMPARED WITH 25 DEC 2016, T ABNL NOW SEEN Electronically Signed By: Eboni Lewis 09-Jan-2017 13:32:31
[2017-01-09 12:39] LABS: TROPONIN I 0.113 ng/mL (0-0.034)
[2017-01-09 14:14] LABS: % IMMATURE GRANULYOCYTES 0.7 % (0.0-1.1); ABSOLUTE IMMATURE GRANULOCYTES 0.09 10^3/uL (0.00-0.10); ADD DIFF? NO; ADD MORPH? NO; ADD SCAN? NO; ATYPICAL LYMPHOCYTE FLAG 10 (0-99); FRAGMENT RBC FLAG 0 (0-99); HEMOGLOBIN 12.3 g/dL (13.7-17.5); LEFT SHIFT FLG 0 (0-99); LIPEMIA HEMOLYSIS FLAG 80 (0-99); MEAN CELL HEMOGLOBIN 29.8 pg (27.9-34.1); MEAN CELL HEMOGLOBIN CONCENTR. 33.2 g/dL (32.4-36.7); MEAN CELL VOLUME 89.6 fL (81.5-99.8); MEAN PLATELET VOLUME 10.1 fL (8.7-11.7); PLATELET CLUMPS FLAG 10 (0-99); PLATELET COUNT 568 10^3/uL (150-400); RED BLOOD CELL COUNT 4.13 10^6/uL (4.40-6.38); RED CELL DISTRIBUTION WIDTH 12.6 % (11.5-15.2)
[2017-01-09] MEDS: LORazepam 0.5 MG TAB PO SCH ×2 (18:22→20:46)
[2017-01-09] MEDS: BISACODYL 10 MG SUPP PR SCH (20:42)
[2017-01-09] MEDS: QUEtiapine FUMARATE 50 MG TAB PO SCH (20:46)
[2017-01-09] MEDS: MIRTAZAPINE 15 MG TAB PO SCH (20:46)
--- NOTE | 2017-01-10 07:27 | SOAPPROG ---
SOAP Progress Note Assessment/Plan: * Perioperative cerebrovascular accident on 12/26/16 with right-sided weakness and left-sided flaccid paralysis. Initial FIM 32 on 01/05/17; gain to 45 on 01/09. Mamie Hickman'danna per nurses; beginning squat-pivot t'danna with therapy staff. Stood today 01/09/17 with mod-max A of 2. Dresses in bed mod A. Has L neglect. Continue PT & OT to optimize mobility and activities of daily living. Fluoxetine was initiated at 10 mg daily for neuro recovery and was to be titrated to 20 mg today 01/05/17 but he did not tolerating it with increased anxiety +/- akathisia; D/C'd 01/05/17. * Cognitive impairment with deficit to memory, problem solving and initiation. Continue Speech and Language Pathology. * Tachycardia AM of 01/09/17. Panic vs cardiac/infectious/metabolic. CXR improved, BMP wnl. EKG with T inversion v1 - v3 c/w ischemia. Troponin with indeterminate elevation at 0.133 in the morning, improved to 0.083 at 1500 draw. Dw/W EMILIA Leonard for Dr. Barragan, who also consulted with Dr. Camara, Cardiology. Likely subendocardial leak related to elevated rate. * Anxiety/akathisia. D/C'd hydroxyzine 01/05/17 due to adverse effects of constipation and dry mouth. Appreciate the help of psychiatry. Much improved with low-dose quetiapine. * Insomnia. D/C zolpidem and melatonin as they have not worked. Mirtazapine 7.5 mg 01/02/17 is not helping. Improved with quetiapine but panic this morning 01/09/17. Psychiatry to see again. Counseling per [employer]. * Constipation. Continue senna/docusate ordered from the hospital and Fleets enema and bisacodyl suppository are available as well. Added polyethylene glycol QD 01/03/17. Schedule bisacodyl suppository at 1730 to avoid bowel program during therapy times. * Pain management. On morphine SR 15 mg BID on 01/05/17 and oxycodone of which he used 50 mg on 01/07/17 and 10 mg on 01/08/17. Pain appears controlled. * Blood pressure. On metoprolol 12.5 mg BID, and amlodipine 5 mg QD to prevent radial artery vasospasm per CT Surgery. Decrease amlodipine to 2.5 mg QD starting 01/10/17; increase metoprolol over next several days if BP tolerates re rate-related troponin leak. Systolics <100 past 24 hrs * Muscle spasm R thorax? No S/Sx respiratory compromise. Continue to monitor. Chronic/stable conditions: * Cardiac function status post surgery. He has been fluid resuscitated as well as diuresed after his surgery. He will have daily weights. D/C fluid restriction 01/05/17. * Status post coronary artery bypass graft. He appears to be healing well. Continue medications as ordered out of the hospital including aspirin, atorvastatin, metoprolol and amlodipine. * Radial artery harvesting. Continue amlodipine to prevent radial artery spasm in the left wrist. * Sternal precautions x4 weeks with no lifting greater than 10 pounds and avoiding pushing or pulling activities. * Wound care. Wounds may be left open to air, cleansed daily with soap and water and no creams or ointments to be used until scabs come off. * Cough without dyspnea. Chest x-ray 01/01/17 was improving. Continues to improve on CXR 01/03/17. Continue to monitor. * Postsurgical anemia. We will repeat a CBC in the morning to ensure stability. FOLLOW UP: He is to see Dr. Barragan, cardiothoracic surgeon on 01/13/2017 at 11: 30 a.m., and at surgical follow up his next appointment with freezer person Dr. Gandhi will be arranged. He should follow up with his primary care provider, Dr. aRj Beard after discharge from inpatient rehabilitation. Tentative discharge of 02/13/17, depending on progress. Subjective: No events, feeling well this a.m. and is without complaint. Some improved sleep lasdt night. No pain or SOB. Objective: Vital Signs Temp Pulse Resp BP Pulse Ox 36.9 C 99 16 96/64 L 92 01/10/17 06:10 01/10/17 06:10 01/10/17 06:10 01/10/17 06:10 01/10/17 06:10 Laboratory Results 01/09/17 11:10 01/09/17 08:50 01/09/17 01/10/17 01/11/17 05:59 05:59 05:59 Intake Total 1350 1340 350 Output Total 1925 1000 Balance -575 340 350 - Pending Discharge Pending Discharge Within 24 Hours: No Pending Discharge Within 48 Hours: No Physical Exam - Physical Exam General Appearance: alert, no apparent distress Neck: supple Respiratory: lungs clear, normal breath sounds Cardiac/Chest: regular rate, rhythm Abdomen: normal bowel sounds, soft Skin: warm/dry Extremities: No pedal edema Neuro/Psych: alert, normal mood/affect, oriented x 3, motor weakness (L eleanor) ICD10 Worksheet Patient Problems: Problems Problem Status Onset Hemiparesis Acute S/P AVR Acute S/P CABG x 3 Acute S/P aortic aneurysm repair Acute Unstable angina pectoris Acute Aortic aneurysm Chronic Bicuspid aortic valve Chronic
[2017-01-10] MEDS: ENOXAPARIN 40 MG/0.4 ML SYR SC SCH (08:14)
[2017-01-10] MEDS: POLYETHYLENE GLYCOL 3350 17 GM PKT PO SCH (08:16)
[2017-01-10] MEDS: LORazepam 0.5 MG TAB PO SCH ×4 (08:16→20:12)
[2017-01-10] MEDS: QUEtiapine FUMARATE 25 MG TAB PO SCH ×3 (08:18→18:41)
[2017-01-10] MEDS: amLODIPine BESYLATE 5 MG TAB PO SCH (08:24)
[2017-01-10] MEDS: ASPIRIN 81 MG CHEWABLE TAB PO SCH (08:25)
[2017-01-10] MEDS: ATORVASTATIN CALCIUM 20 MG TAB PO SCH (08:26)
[2017-01-10] MEDS: morphINE SR 15 MG TAB PO SCH ×2 (08:26→20:11)
[2017-01-10] MEDS: METOPROLOL TARTRATE 25 MG TAB PO SCH ×2 (08:26→20:14)
[2017-01-10] MEDS: BISACODYL 10 MG SUPP PR SCH (20:10)
[2017-01-10] MEDS: QUEtiapine FUMARATE 50 MG TAB PO SCH (20:11)
[2017-01-10] MEDS: MIRTAZAPINE 15 MG TAB PO SCH (20:11)
--- NOTE | 2017-01-11 07:48 | SOAPPROG ---
SOAP Progress Note Assessment/Plan: * Perioperative cerebrovascular accident on 12/26/16 with right-sided weakness and left-sided flaccid paralysis. Initial FIM 32 on 01/05/17; gain to 45 on 01/09. Mamie Hickman'danna per nurses; beginning squat-pivot t'danna with therapy staff. Stood today 01/09/17 with mod-max A of 2. Dresses in bed mod A. Has L neglect. Continue PT & OT to optimize mobility and activities of daily living. Fluoxetine was initiated at 10 mg daily for neuro recovery and was to be titrated to 20 mg today 01/05/17 but he did not tolerating it with increased anxiety +/- akathisia; D/C'd 01/05/17. * Cognitive impairment with deficit to memory, problem solving and initiation. Continue Speech and Language Pathology. * Tachycardia AM of 01/09/17. Panic vs cardiac/infectious/metabolic. CXR improved, BMP wnl. EKG with T inversion v1 - v3 c/w ischemia. Troponin with indeterminate elevation at 0.133 in the morning, improved to 0.083 at 1500 draw. Dw/W EMILIA Leonard for Dr. Barragan, who also consulted with Dr. Camara, Cardiology. Likely subendocardial leak related to elevated rate. * Anxiety/akathisia. D/C'd hydroxyzine 01/05/17 due to adverse effects of constipation and dry mouth. Appreciate the help of psychiatry. Much improved with low-dose quetiapine. * Insomnia. D/C zolpidem and melatonin as they have not worked. Mirtazapine 7.5 mg 01/02/17 is not helping. Improved with quetiapine but panic this morning 01/09/17. Psychiatry to see again. Counseling per RADIO MACHINIST. * Constipation. Continue senna/docusate ordered from the hospital and Fleets enema and bisacodyl suppository are available as well. Added polyethylene glycol QD 01/03/17. Schedule bisacodyl suppository at 1730 to avoid bowel program during therapy times. * Pain management. On morphine SR 15 mg BID on 01/05/17 and oxycodone of which he used 50 mg on 01/07/17 and 10 mg on 01/08/17. Pain appears controlled. * Blood pressure. On metoprolol 12.5 mg BID, and amlodipine 5 mg QD to prevent radial artery vasospasm per CT Surgery. Decrease amlodipine to 2.5 mg QD starting 01/10/17; increase metoprolol over next several days if BP tolerates re rate-related troponin leak. Systolics <100 past 24 hrs * Muscle spasm R thorax? No S/Sx respiratory compromise. Continue to monitor. Chronic/stable conditions: * Cardiac function status post surgery. He has been fluid resuscitated as well as diuresed after his surgery. He will have daily weights. D/C fluid restriction 01/05/17. * Status post coronary artery bypass graft. He appears to be healing well. Continue medications as ordered out of the hospital including aspirin, atorvastatin, metoprolol and amlodipine. * Radial artery harvesting. Continue amlodipine to prevent radial artery spasm in the left wrist. * Sternal precautions x4 weeks with no lifting greater than 10 pounds and avoiding pushing or pulling activities. * Wound care. Wounds may be left open to air, cleansed daily with soap and water and no creams or ointments to be used until scabs come off. * Cough without dyspnea. Chest x-ray 01/01/17 was improving. Continues to improve on CXR 01/03/17. Continue to monitor. * Postsurgical anemia. We will repeat a CBC in the morning to ensure stability. FOLLOW UP: He is to see Dr. Barragan, cardiothoracic surgeon on 01/13/2017 at 11: 30 a.m., and at surgical follow up his next appointment with historiography professor Dr. Gandhi will be arranged. He should follow up with his primary care provider, Dr. Raj Beard after discharge from inpatient rehabilitation. Tentative discharge of 02/13/17, depending on progress. Subjective: No events. Has some muscle soreness on left hemiparetic side but improved with heat. No complaints this a.m. Denies SOB/CP/chills. Objective: Vital Signs Temp Pulse Resp BP Pulse Ox 37.2 C 100 16 95/62 L 91 L 01/10/17 19:21 01/10/17 20:14 01/10/17 19:21 01/10/17 20:14 01/11/17 00:51 Laboratory Results 01/09/17 11:10 01/09/17 08:50 01/10/17 01/11/17 01/12/17 05:59 05:59 05:59 Intake Total 1340 1742 Output Total 1000 1625 Balance 340 117 - Pending Discharge Pending Discharge Within 24 Hours: No Pending Discharge Within 48 Hours: No Physical Exam - Physical Exam General Appearance: alert, no apparent distress Neck: supple Respiratory: lungs clear, decreased breath sounds (bilateral bases) Cardiac/Chest: regular rate, rhythm Abdomen: normal bowel sounds, non-tender Skin: warm/dry Neuro/Psych: alert, normal mood/affect, oriented x 3, motor weakness (left eleanor) ICD10 Worksheet Patient Problems: Problems Problem Status Onset Hemiparesis Acute S/P AVR Acute S/P CABG x 3 Acute S/P aortic aneurysm repair Acute Unstable angina pectoris Acute Aortic aneurysm Chronic Bicuspid aortic valve Chronic
[2017-01-11] MEDS: LORazepam 0.5 MG TAB PO SCH ×4 (08:41→21:08)
[2017-01-11] MEDS: QUEtiapine FUMARATE 25 MG TAB PO SCH ×3 (08:42→18:05)
[2017-01-11] MEDS: ASPIRIN 81 MG CHEWABLE TAB PO SCH (08:44)
[2017-01-11] MEDS: amLODIPine BESYLATE 5 MG TAB PO SCH (08:44)
[2017-01-11] MEDS: ATORVASTATIN CALCIUM 20 MG TAB PO SCH (08:44)
[2017-01-11] MEDS: ENOXAPARIN 40 MG/0.4 ML SYR SC SCH (08:44)
[2017-01-11] MEDS: METOPROLOL TARTRATE 25 MG TAB PO SCH ×2 (08:45→21:08)
[2017-01-11] MEDS: POLYETHYLENE GLYCOL 3350 17 GM PKT PO SCH (08:45)
[2017-01-11] MEDS: morphINE SR 15 MG TAB PO SCH ×2 (08:46→21:08)
--- NOTE | 2017-01-11 14:46 | SOAPPROG ---
SOAP Progress Note Assessment/Plan: Assessment: Plan: 01/11/17 14:36 PSYCHIATRY FOLLOWUP: Pt seen in f/u 01/09 with check in with Nursing 01/10 and . In contact 01/09 seen alone and with Nursing and pt in family meeting. Medications reviewed in detail along with Care Plan strategies. ON EXAM (01/09): pt presented as calm, cooperative, conversant; concrete, understandable, and appeared to comprehend the addition of Ativan 12.5 mg qid to the standing Seroquel, the value and indications of using the prn Ativan as ordered for emerging anxiety sx; Also reviewed the CP strategies a/w using digital clock for time orientation and the white board for family visit/call times. UPDATE - Nursing reports pt has been significantly calmer and panic-free last 60 + hours and also sleeping is much improved; is complying with po meds including the added standing Ativan will follow; can be reached at [phone] Objective: Vital Signs Temp Pulse Resp BP Pulse Ox 36.6 C 101 H 18 98/64 L 95 01/11/17 08:00 01/11/17 08:45 01/11/17 08:00 01/11/17 08:45 01/11/17 08:00 Laboratory Results 01/09/17 11:10 01/09/17 08:50 01/10/17 01/11/17 01/12/17 05:59 05:59 05:59 Intake Total 1340 1742 1550 Output Total 1000 1625 Balance 083 195 7246 ICD10 Worksheet Patient Problems: Problems Problem Status Onset Hemiparesis Acute S/P AVR Acute S/P CABG x 3 Acute S/P aortic aneurysm repair Acute Unstable angina pectoris Acute Aortic aneurysm Chronic Bicuspid aortic valve Chronic
[2017-01-11] MEDS: BISACODYL 10 MG SUPP PR SCH (19:51)
[2017-01-11] MEDS: oxyCODONE IR 5 MG TAB PO PRN (21:07)
[2017-01-11] MEDS: QUEtiapine FUMARATE 50 MG TAB PO SCH (21:08)
[2017-01-11] MEDS: MIRTAZAPINE 15 MG TAB PO SCH (21:08)
[2017-01-11] MEDS: LORazepam 0.5 MG TAB PO PRN (21:44)
[2017-01-12] MEDS: LORazepam 0.5 MG TAB PO SCH ×4 (07:49→22:00)
[2017-01-12] MEDS: QUEtiapine FUMARATE 25 MG TAB PO SCH ×3 (07:49→18:02)
[2017-01-12] MEDS: ENOXAPARIN 40 MG/0.4 ML SYR SC SCH (07:50)
[2017-01-12] MEDS: POLYETHYLENE GLYCOL 3350 17 GM PKT PO SCH (09:31)
[2017-01-12] MEDS: amLODIPine BESYLATE 5 MG TAB PO SCH (09:32)
[2017-01-12] MEDS: ATORVASTATIN CALCIUM 20 MG TAB PO SCH (09:33)
[2017-01-12] MEDS: ASPIRIN 81 MG CHEWABLE TAB PO SCH (09:33)
[2017-01-12] MEDS: METOPROLOL TARTRATE 25 MG TAB PO SCH ×2 (09:33→22:00)
[2017-01-12] MEDS: morphINE SR 15 MG TAB PO SCH ×2 (09:40→21:59)
--- NOTE | 2017-01-12 15:40 | SOAPPROG ---
SOAP Progress Note Assessment/Plan: * Perioperative cerebrovascular accident on 12/26/16 with right-sided weakness and left-sided flaccid paralysis. Initial FIM 32 on 01/05/17; gain to 45 on 01/09. Mamie Hickman'danna per nurses; beginning squat-pivot t'danna with therapy staff. Stood today 01/09/17 with mod-max A of 2. Dresses in bed mod A. Has L neglect. Continue PT & OT to optimize mobility and activities of daily living. Fluoxetine was initiated at 10 mg daily for neuro recovery and was to be titrated to 20 mg today 01/05/17 but he did not tolerating it with increased anxiety +/- akathisia; D/C'd 01/05/17. * Cognitive impairment with deficit to memory, problem solving and initiation. Continue Speech and Language Pathology. * Tachycardia AM of 01/09/17. Panic vs cardiac/infectious/metabolic. CXR improved, BMP wnl. EKG with T inversion v1 - v3 c/w ischemia. Troponin with indeterminate elevation at 0.133 in the morning, improved to 0.083 at 1500 draw. Dw/W EMILIA Leonard for Dr. Barragan, who also consulted with Dr. Camara, Cardiology. Likely subendocardial leak related to elevated rate. * Anxiety/akathisia. D/C'd hydroxyzine 01/05/17 due to adverse effects of constipation and dry mouth. Appreciate the help of psychiatry. Much improved with low-dose quetiapine. * Insomnia. D/C zolpidem and melatonin as they have not worked. Mirtazapine 7.5 mg 01/02/17 is not helping. Improved with quetiapine but panic this morning 01/09/17. Psychiatry to see again. Counseling per BUSINESS DEVELOPMENT DIRECTOR. * Constipation. Continue senna/docusate ordered from the hospital and Fleets enema and bisacodyl suppository are available as well. Added polyethylene glycol QD 01/03/17. Schedule bisacodyl suppository at 1730 to avoid bowel program during therapy times. * Pain management. On morphine SR 15 mg BID on 01/05/17 and oxycodone of which he used 50 mg on 01/07/17 and 10 mg on 01/08/17. Pain appears controlled. * Blood pressure. On metoprolol 12.5 mg BID, and amlodipine 5 mg QD to prevent radial artery vasospasm per CT Surgery. Decrease amlodipine to 2.5 mg QD starting 01/10/17; increase metoprolol over next several days if BP tolerates re rate-related troponin leak. Systolics <100 past 24 hrs * Muscle spasm R thorax? No S/Sx respiratory compromise. Continue to monitor. Chronic/stable conditions: * Cardiac function status post surgery. He has been fluid resuscitated as well as diuresed after his surgery. He will have daily weights. D/C fluid restriction 01/05/17. * Status post coronary artery bypass graft. He appears to be healing well. Continue medications as ordered out of the hospital including aspirin, atorvastatin, metoprolol and amlodipine. * Radial artery harvesting. Continue amlodipine to prevent radial artery spasm in the left wrist. * Sternal precautions x4 weeks with no lifting greater than 10 pounds and avoiding pushing or pulling activities. * Wound care. Wounds may be left open to air, cleansed daily with soap and water and no creams or ointments to be used until scabs come off. * Cough without dyspnea. Chest x-ray 01/01/17 was improving. Continues to improve on CXR 01/03/17. Continue to monitor. * Postsurgical anemia. We will repeat a CBC in the morning to ensure stability. FOLLOW UP: He is to see Dr. Barragan, cardiothoracic surgeon on 01/13/2017 at 11: 30 a.m., and at surgical follow up his next appointment with digital editor Dr. Gandhi will be arranged. He should follow up with his primary care provider, Dr. Raj Beard after discharge from inpatient rehabilitation. Tentative discharge of 02/13/17, depending on progress. Subjective: no events. Reports feeling much improved, had good discussion with psych yesterday and has not needed prn benzos this weekend. Denies CP, SOB, palpitations. Objective: Vital Signs Temp Pulse Resp BP Pulse Ox 37.2 C 101 H 16 98/64 L 93 01/12/17 06:44 01/12/17 09:33 01/12/17 06:44 01/12/17 09:33 01/12/17 06:44 Laboratory Results 01/09/17 11:10 01/09/17 08:50 01/11/17 01/12/17 01/13/17 05:59 05:59 05:59 Intake Total 1742 3286 654 Output Total 1629 1750 200 Balance 117 1536 454 - Pending Discharge Pending Discharge Within 24 Hours: No Pending Discharge Within 48 Hours: No Physical Exam - Physical Exam General Appearance: alert, no apparent distress Neck: supple Respiratory: normal breath sounds, decreased breath sounds (left) Cardiac/Chest: regular rate, rhythm Abdomen: non-tender, soft Skin: warm/dry Neuro/Psych: alert, normal mood/affect, oriented x 3, motor weakness (Left eleanor) , No speech abnormalities ICD10 Worksheet Patient Problems: Problems Problem Status Onset Hemiparesis Acute S/P AVR Acute S/P CABG x 3 Acute S/P aortic aneurysm repair Acute Unstable angina pectoris Acute Aortic aneurysm Chronic Bicuspid aortic valve Chronic
[2017-01-12] MEDS: BISACODYL 10 MG SUPP PR SCH (19:52)
[2017-01-12] MEDS: MIRTAZAPINE 15 MG TAB PO SCH (22:00)
[2017-01-12] MEDS: QUEtiapine FUMARATE 50 MG TAB PO SCH (22:00)
[2017-01-13] MEDS: ASPIRIN 81 MG CHEWABLE TAB PO SCH (08:02)
[2017-01-13] MEDS: ENOXAPARIN 40 MG/0.4 ML SYR SC SCH (08:02)
[2017-01-13] MEDS: LORazepam 0.5 MG TAB PO SCH ×4 (08:02→20:57)
[2017-01-13] MEDS: morphINE SR 15 MG TAB PO SCH ×2 (08:02→20:58)
[2017-01-13] MEDS: POLYETHYLENE GLYCOL 3350 17 GM PKT PO SCH (08:02)
[2017-01-13] MEDS: QUEtiapine FUMARATE 25 MG TAB PO SCH ×3 (08:03→17:19)
[2017-01-13] MEDS: ATORVASTATIN CALCIUM 20 MG TAB PO SCH (08:03)
[2017-01-13] MEDS: amLODIPine BESYLATE 5 MG TAB PO SCH (10:06)
[2017-01-13] MEDS: METOPROLOL TARTRATE 25 MG TAB PO SCH ×2 (10:07→20:56)
--- NOTE | 2017-01-13 12:31 | SOAPPROG ---
SOAP Progress Note Assessment/Plan: Assessment: * Perioperative cerebrovascular accident on 12/26/16 with right-sided weakness and left-sided flaccid paralysis. Initial FIM 32 on 01/05/17; gain to 45 on 01/09. Mamie T'danna per nurses; beginning squat-pivot t'danna with therapy staff. Stood 01/09/17 with mod-max A of 2. Dresses in bed mod A. Has L neglect. Continue PT & OT to optimize mobility and activities of daily living. Fluoxetine was initiated at 10 mg daily for neuro recovery and was to be titrated to 20 mg today 01/05/17 but he did not tolerating it with increased anxiety +/- akathisia; D/C'd 01/05/17. * Cognitive impairment with deficit to memory, problem solving and initiation. Continue Speech and Language Pathology. * Tachycardia AM of 01/09/17. Panic vs cardiac/infectious/metabolic. CXR improved, BMP wnl. EKG with T inversion v1 - v3 c/w ischemia. Troponin with indeterminate elevation at 0.133 in the morning, improved to 0.083 at 1500 draw. D/W EMILIA Leonard for Dr. Barragan, who also consulted with Dr. Camara, Cardiology. Likely subendocardial leak related to elevated rate. * Anxiety/akathisia. D/C'd hydroxyzine 01/05/17 due to adverse effects of constipation and dry mouth. Appreciate the help of psychiatry. Much improved with low-dose quetiapine. * Insomnia. D/C zolpidem and melatonin as they have not worked. Mirtazapine 7.5 mg 01/02/17 is not helping. Improved with quetiapine but panic morning of . Now on RTC quetiapine and low-dose lorazepam, not using PRNs. * Constipation. Continue senna/docusate ordered from the hospital and Fleets enema and bisacodyl suppository are available as well. Added polyethylene glycol QD 01/03/17. Schedule bisacodyl suppository at 1730 to avoid bowel program during therapy times. * Pain management. On morphine SR 15 mg BID on 01/05/17 and oxycodone which he has not used since 01/11/17. Will d/c daytime morphine SR starting 01/14/17; continue HS and continue PRN oxycodone.. Pain appears controlled. * Blood pressure. On metoprolol 12.5 mg BID, and amlodipine 2.5 mg QD to prevent radial artery vasospasm per CT Surgery. BP may be higher with less opiate. * Muscle spasm R thorax? No S/Sx respiratory compromise. Continue to monitor. Chronic/stable conditions: * Cardiac function status post surgery. He has been fluid resuscitated as well as diuresed after his surgery. He will have daily weights. D/C fluid restriction 01/05/17. * Status post coronary artery bypass graft. He appears to be healing well. Continue medications as ordered out of the hospital including aspirin, atorvastatin, metoprolol and amlodipine. * Radial artery harvesting. Continue amlodipine to prevent radial artery spasm in the left wrist. * Sternal precautions x4 weeks with no lifting greater than 10 pounds and avoiding pushing or pulling activities. * Wound care. Wounds may be left open to air, cleansed daily with soap and water and no creams or ointments to be used until scabs come off. * Cough without dyspnea. Chest x-ray 01/01/17 was improving. Continues to improve on CXR 01/03/17. Continue to monitor. * Postsurgical anemia. We will repeat a CBC in the morning to ensure stability. FOLLOW UP: He is to see Dr. Barragan, cardiothoracic surgeon, and at surgical follow up his next appointment with pecan gatherer Dr. Gandhi will be arranged. He should follow up with his primary care provider, Dr. Raj Beard after discharge from inpatient rehabilitation. Tentative discharge of 02/13/17, depending on progress. 01/13/17 14:17 Subjective: No comlpaints. No pain. Anxiety much improved. Has sensation returning LUE but no movement yet. Objective: Vital Signs Temp Pulse Resp BP Pulse Ox 36.3 C 85 16 86/57 L 91 L 01/13/17 07:23 01/13/17 10:07 01/13/17 07:23 01/13/17 10:07 01/13/17 07:23 Laboratory Results 01/09/17 11:10 01/09/17 08:50 01/12/17 01/13/17 01/14/17 05:59 05:59 05:59 Intake Total 3286 1174 870 Output Total 7031 146 Balance 0785 056 874 Physical Exam - Physical Exam General Appearance: WD/WN, alert, no apparent distress Respiratory: No respiratory distress, No accessory muscle use Skin: normal color, warm/dry Neuro/Psych: alert, normal mood/affect, oriented x 3, motor weakness (LLE & LUE) ICD10 Worksheet Patient Problems: Problems Problem Status Onset Hemiparesis Acute S/P AVR Acute S/P CABG x 3 Acute S/P aortic aneurysm repair Acute Unstable angina pectoris Acute Aortic aneurysm Chronic Bicuspid aortic valve Chronic
[2017-01-13] MEDS: BISACODYL 10 MG SUPP PR SCH (19:37)
[2017-01-13] MEDS: QUEtiapine FUMARATE 50 MG TAB PO SCH (20:58)
[2017-01-13] MEDS: MIRTAZAPINE 15 MG TAB PO SCH (20:58)
[2017-01-14] MEDS: ASPIRIN 81 MG CHEWABLE TAB PO SCH (09:01)
[2017-01-14] MEDS: POLYETHYLENE GLYCOL 3350 17 GM PKT PO SCH (09:01)
[2017-01-14] MEDS: ENOXAPARIN 40 MG/0.4 ML SYR SC SCH (09:01)
[2017-01-14] MEDS: ATORVASTATIN CALCIUM 20 MG TAB PO SCH (09:02)
[2017-01-14] MEDS: LORazepam 0.5 MG TAB PO SCH ×4 (09:02→20:32)
[2017-01-14] MEDS: QUEtiapine FUMARATE 25 MG TAB PO SCH ×3 (09:02→18:17)
[2017-01-14] MEDS: amLODIPine BESYLATE 5 MG TAB PO SCH (09:03)
[2017-01-14] MEDS: METOPROLOL TARTRATE 25 MG TAB PO SCH ×2 (09:04→20:26)
[2017-01-14 11:51] LABS: COLOR YELLOW; LEUKOCYTE ESTERASE,URINE NEGATIVE (NEGATIVE); NITRITE,URINE NEGATIVE (NEGATIVE)
[2017-01-14 11:57] LABS: ANION GAP 9 mEq/L (8-16); CARBON DIOXIDE 28 mEq/l (22-31); CHLORIDE 97 mEq/L (97-110); CREATININE 0.7 mg/dL (0.7-1.3); GLOMERULAR FILTRATION RATE > 60; GLUCOSE 117 mg/dL (70-100); POTASSIUM 4.2 mEq/L (3.5-5.2); SODIUM 134 mEq/L (134-144)
[2017-01-14 11:58] LABS: % IMMATURE GRANULYOCYTES 0.5 % (0.0-1.1); ABSOLUTE IMMATURE GRANULOCYTES 0.03 10^3/uL (0.00-0.10); ADD DIFF? NO; ADD MORPH? NO; ADD SCAN? NO; ATYPICAL LYMPHOCYTE FLAG 20 (0-99); FRAGMENT RBC FLAG 0 (0-99); HEMATOCRIT 32.7 % (40.0-51.0); HEMOGLOBIN 10.8 g/dL (13.7-17.5); LEFT SHIFT FLG 0 (0-99); LIPEMIA HEMOLYSIS FLAG 80 (0-99); MEAN CELL HEMOGLOBIN 29.3 pg (27.9-34.1); MEAN CELL VOLUME 88.9 fL (81.5-99.8); MEAN PLATELET VOLUME 9.6 fL (8.7-11.7); PLATELET CLUMPS FLAG 0 (0-99); PLATELET COUNT 388 10^3/uL (150-400); RED BLOOD CELL COUNT 3.68 10^6/uL (4.40-6.38); RED CELL DISTRIBUTION WIDTH 12.4 % (11.5-15.2)
--- NOTE | 2017-01-14 12:18 | SOAPPROG ---
SOAP Progress Note Assessment/Plan: Assessment: * Perioperative cerebrovascular accident on 12/26/16 with right-sided weakness and left-sided flaccid paralysis. Initial FIM 32 on 01/05/17; gain to 45 on 01/09. Mamie T'danna per nurses; beginning squat-pivot t'danna with therapy staff. Stood 01/09/17 with mod-max A of 2. Dresses in bed mod A. Has L neglect. Continue PT & OT to optimize mobility and activities of daily living. Fluoxetine was initiated at 10 mg daily for neuro recovery and was to be titrated to 20 mg today 01/05/17 but he did not tolerating it with increased anxiety +/- akathisia; D/C'd 01/05/17. * Cognitive impairment with deficit to memory, problem solving and initiation. Continue Speech and Language Pathology. * Tachycardia AM of 01/09/17. Panic vs cardiac/infectious/metabolic. CXR improved, BMP wnl. EKG with T inversion v1 - v3 c/w ischemia. Troponin with indeterminate elevation at 0.133 in the morning, improved to 0.083 at 1500 draw. D/W EMILIA Leonard for Dr. Barragan, who also consulted with Dr. Camara, Cardiology. Likely subendocardial leak related to elevated rate. * Flank pain, feeling hot 01/14/17. No infectious etiology on UA & CBC. BMP wnl. * Anemia, post-surgical, worse on blood draw 01/14/17. Add-on reticulocyte count ; hemoccult stool. * Anxiety/akathisia. D/C'd hydroxyzine 01/05/17 due to adverse effects of constipation and dry mouth. Appreciate the help of psychiatry. Much improved with low-dose quetiapine. * Insomnia. D/C zolpidem and melatonin as they have not worked. Mirtazapine 7.5 mg 01/02/17 is not helping. Improved with quetiapine but panic morning of . Now on RTC quetiapine and low-dose lorazepam, not using PRNs. * Constipation. Continue senna/docusate ordered from the hospital and Fleets enema and bisacodyl suppository are available as well. Added polyethylene glycol QD 01/03/17. Schedule bisacodyl suppository at 1730 to avoid bowel program during therapy times. * Pain management. On morphine SR 15 mg BID on 01/05/17 and oxycodone which he has not used since 01/11/17. Will d/c daytime morphine SR starting 01/14/17; continue HS and continue PRN oxycodone.. Pain appears controlled. * Blood pressure. On metoprolol 12.5 mg BID, and amlodipine 2.5 mg QD to prevent radial artery vasospasm per CT Surgery. BP may be higher with less opiate. * Muscle spasm R thorax? No S/Sx respiratory compromise. Continue to monitor. Chronic/stable conditions: * Cardiac function status post surgery. He has been fluid resuscitated as well as diuresed after his surgery. He will have daily weights. D/C fluid restriction 01/05/17. * Status post coronary artery bypass graft. He appears to be healing well. Continue medications as ordered out of the hospital including aspirin, atorvastatin, metoprolol and amlodipine. * Radial artery harvesting. Continue amlodipine to prevent radial artery spasm in the left wrist. * Sternal precautions x4 weeks with no lifting greater than 10 pounds and avoiding pushing or pulling activities. * Wound care. Wounds may be left open to air, cleansed daily with soap and water and no creams or ointments to be used until scabs come off. * Cough without dyspnea. Chest x-ray 01/01/17 was improving. Continues to improve on CXR 01/03/17. Continue to monitor. * Postsurgical anemia. We will repeat a CBC in the morning to ensure stability. FOLLOW UP: He is to see Dr. Barragan, cardiothoracic surgeon, and at surgical follow up his next appointment with dairy husbandry worker Dr. Gandhi will be arranged. He should follow up with his primary care provider, Dr. Raj Beard after discharge from inpatient rehabilitation. Tentative discharge of 02/13/17, depending on progress. 01/13/17 14:17 01/14/17 12:13 Subjective: C/O feeling hot this morning. noted a cough. Has R flank pain. Denies dyspnea, abd pain, dysuria, n/v/c/d. Objective: Vital Signs Temp Pulse Resp BP Pulse Ox 36.9 C 92 18 89/60 L 92 01/14/17 08:00 01/14/17 08:00 01/14/17 08:00 01/14/17 09:03 01/14/17 08:00 Laboratory Results 01/14/17 10:40 01/14/17 10:40 01/13/17 01/14/17 01/15/17 05:59 05:59 05:59 Intake Total 1174 2350 236 Output Total 550 400 Balance 624 1950 236 ICD10 Worksheet Patient Problems: Problems Problem Status Onset Hemiparesis Acute S/P AVR Acute S/P CABG x 3 Acute S/P aortic aneurysm repair Acute Unstable angina pectoris Acute Aortic aneurysm Chronic Bicuspid aortic valve Chronic
[2017-01-14 15:17] LABS: HEMATOCRIT 33.3 % (40.0-51.0)
[2017-01-14] MEDS: BISACODYL 10 MG SUPP PR SCH (20:31)
[2017-01-14] MEDS: morphINE SR 15 MG TAB PO SCH (20:32)
[2017-01-14] MEDS: QUEtiapine FUMARATE 50 MG TAB PO SCH (20:32)
[2017-01-14] MEDS: MIRTAZAPINE 15 MG TAB PO SCH (20:33)
[2017-01-15] MEDS: amLODIPine BESYLATE 5 MG TAB PO SCH (09:29)
[2017-01-15] MEDS: ASPIRIN 81 MG CHEWABLE TAB PO SCH (09:32)
[2017-01-15] MEDS: ATORVASTATIN CALCIUM 20 MG TAB PO SCH (09:32)
[2017-01-15] MEDS: POLYETHYLENE GLYCOL 3350 17 GM PKT PO SCH (09:33)
[2017-01-15] MEDS: QUEtiapine FUMARATE 25 MG TAB PO SCH ×3 (09:33→17:22)
[2017-01-15] MEDS: METOPROLOL TARTRATE 25 MG TAB PO SCH ×2 (09:34→21:10)
[2017-01-15] MEDS: LORazepam 0.5 MG TAB PO SCH ×4 (09:36→21:07)
[2017-01-15] MEDS: ENOXAPARIN 40 MG/0.4 ML SYR SC SCH (09:37)
--- NOTE | 2017-01-15 10:25 | SOAPPROG ---
SOAP Progress Note Assessment/Plan: Assessment: * Perioperative cerebrovascular accident on 12/26/16 with right-sided weakness and left-sided flaccid paralysis. Initial FIM 32 on 01/05/17; gain to 45 on 01/09, to 66 on 01/15/17. T'danna mod A of 1. Dressing seated CGA/Min A for UB, Min A for LB with assist for balance hiking pants. Has L neglect. Continue PT & OT to optimize mobility and activities of daily living. Fluoxetine was initiated at 10 mg daily for neuro recovery and was to be titrated to 20 mg today 01/05/17 but he did not tolerating it with increased anxiety +/- akathisia; D/C'd . * Cognitive impairment with deficit to memory, problem solving and initiation. Continue Speech and Language Pathology. * Tachycardia AM of 01/09/17. Panic vs cardiac/infectious/metabolic. CXR improved, BMP wnl. EKG with T inversion v1 - v3 c/w ischemia. Troponin with indeterminate elevation at 0.133 in the morning, improved to 0.083 at 1500 draw. D/W EMILIA Leonard for Dr. Barragan, who also consulted with Dr. Camara, Cardiology. Likely subendocardial leak related to elevated rate. * Flank pain, feeling hot 01/14/17. No infectious etiology on UA & CBC. BMP wnl. * Anemia, post-surgical, worse on blood draw 01/14/17. Add-on reticulocyte count ; stool hemoccult neg X 1. * Anxiety/akathisia. D/C'd hydroxyzine 01/05/17 due to adverse effects of constipation and dry mouth. Appreciate the help of psychiatry. Much improved with low-dose quetiapine. * Insomnia. D/C zolpidem and melatonin as they have not worked. Mirtazapine 7.5 mg 01/02/17 was not effective for sleep; titrated to 15 mg for anxiety on . Improved with quetiapine but panic morning of 01/09/17. Now on RTC quetiapine and low-dose lorazepam, not using PRNs. * Constipation. Continue senna/docusate ordered from the hospital and Fleets enema and bisacodyl suppository are available as well. Added polyethylene glycol QD 01/03/17. Schedule bisacodyl suppository at 1730 to avoid bowel program during therapy times. * Pain management. Oxycodone not used since 01/11/17. D/C'd daytime morphine SR starting 01/14/17; HS morphine 01/15/17. Pain appears controlled. * Blood pressure. On metoprolol 12.5 mg BID, and amlodipine 2.5 mg QD to prevent radial artery vasospasm per CT Surgery; both have been held for several days due to hypotension. D/C metoprolol on 01/15/17; continue amlodipine 2.5 mg qd. * Muscle spasm R thorax? No S/Sx respiratory compromise. Continue to monitor. Chronic/stable conditions: * Cardiac function status post surgery. He has been fluid resuscitated as well as diuresed after his surgery. He will have daily weights. D/C fluid restriction 01/05/17. * Status post coronary artery bypass graft. He appears to be healing well. Continue medications as ordered out of the hospital including aspirin, atorvastatin, metoprolol and amlodipine. * Radial artery harvesting. Continue amlodipine to prevent radial artery spasm in the left wrist. * Sternal precautions x4 weeks with no lifting greater than 10 pounds and avoiding pushing or pulling activities. * Wound care. Wounds may be left open to air, cleansed daily with soap and water and no creams or ointments to be used until scabs come off. * Cough without dyspnea. Chest x-ray 01/01/17 was improving. Continues to improve on CXR 01/03/17. Continue to monitor. * Postsurgical anemia. We will repeat a CBC in the morning to ensure stability. FOLLOW UP: Saw Dr. Barragan, cardiothoracic surgeon . Cardiology Dr. Gandhi or Cortes after discharge. Primary care provider, Dr. Raj Beard after discharge from inpatient rehabilitation. Attended staffing, 15 min. D/W case mgmt, nursing, PT, OT, BOILER OPERATOR. 3 - 5 SAMREEN but can live on 1 level. Continue discharge goal of 02/13/17, depending on progress. 01/15/17 14:48 Subjective: No complaints. Notes some return of movement of the L hand: has been ableto make a fist. Not in pain, sleeping well, not anxious, no f/c, cough/dyapnea. Objective: Vital Signs Temp Pulse Resp BP Pulse Ox 36.6 C 97 18 90/64 L 94 01/15/17 06:43 01/15/17 06:43 01/15/17 06:43 01/15/17 09:29 01/15/17 06:43 Laboratory Results 01/14/17 10:40 01/14/17 10:40 01/14/17 01/15/17 01/16/17 05:59 05:59 05:59 Intake Total 2355 826 980 Output Total 400 850 Balance 1949 - 980 - Time Spent With Patient Time Spent With Patient: Greater than 35 minutes floor time today, including more than 50% of time in coordination of care during staffing, and counseling patient. Physical Exam - Physical Exam General Appearance: WD/WN, alert, no apparent distress Respiratory: normal breath sounds, No crackles, No rhonchi, No wheezing Cardiac/Chest: regular rate, rhythm, No edema Skin: normal color, warm/dry Neuro/Psych: alert, normal mood/affect, oriented x 3, motor weakness (LUE & LLE. ) ICD10 Worksheet Patient Problems: Problems Problem Status Onset Hemiparesis Acute S/P AVR Acute S/P CABG x 3 Acute S/P aortic aneurysm repair Acute Unstable angina pectoris Acute Aortic aneurysm Chronic Bicuspid aortic valve Chronic
[2017-01-15] MEDS: ACETAMINOPHEN 325 MG TAB PO PRN ×2 (12:37→21:47)
[2017-01-15] MEDS: BISACODYL 10 MG SUPP PR SCH (19:24)
[2017-01-15] MEDS: QUEtiapine FUMARATE 50 MG TAB PO SCH (21:07)
[2017-01-15] MEDS: MIRTAZAPINE 15 MG TAB PO SCH (21:07)
[2017-01-16] MEDS: ACETAMINOPHEN 325 MG TAB PO PRN ×2 (08:44→21:06)
[2017-01-16] MEDS: amLODIPine BESYLATE 5 MG TAB PO SCH (08:45)
[2017-01-16] MEDS: ASPIRIN 81 MG CHEWABLE TAB PO SCH (08:45)
[2017-01-16] MEDS: ATORVASTATIN CALCIUM 20 MG TAB PO SCH (08:46)
[2017-01-16] MEDS: METOPROLOL TARTRATE 25 MG TAB PO SCH ×2 (08:46→20:40)
[2017-01-16] MEDS: LORazepam 0.5 MG TAB PO SCH ×4 (08:46→20:32)
[2017-01-16] MEDS: ENOXAPARIN 40 MG/0.4 ML SYR SC SCH (08:46)
[2017-01-16] MEDS: SENNOSIDES/DOCUSATE SODIUM TAB PO PRN (08:47)
[2017-01-16] MEDS: POLYETHYLENE GLYCOL 3350 17 GM PKT PO SCH (08:47)
[2017-01-16] MEDS: QUEtiapine FUMARATE 25 MG TAB PO SCH ×3 (08:47→18:06)
--- NOTE | 2017-01-16 13:07 | SOAPPROG ---
SOAP Progress Note Assessment/Plan: Assessment: * Perioperative cerebrovascular accident on 12/26/16 with right-sided weakness and left-sided flaccid paralysis. Initial FIM 32 on 01/05/17; gain to 45 on 01/09, gain to 66 as of 01/15/17 Beginning to walk, 20' X 3 on 01/16/17. Transfers improving towards CGA. Has L neglect. Continue PT & OT to optimize mobility and activities of daily living. Fluoxetine was initiated at 10 mg daily for neuro recovery and was to be titrated to 20 mg today 01/05/17 but he did not tolerating it with increased anxiety +/- akathisia; D/C'd 01/05/17. * Cognitive impairment with deficit to memory, problem solving and initiation. Continue Speech and Language Pathology. * Anemia, post-surgical, worse on blood draw 01/14/17. Reticulocyte count appropriately high; hemoccult stool negative X 2. * Anxiety/akathisia. D/C'd hydroxyzine 01/05/17 due to adverse effects of constipation and dry mouth. Appreciate the help of psychiatry. Much improved with low-dose quetiapine. * Insomnia. D/C zolpidem and melatonin as they have not worked. Mirtazapine 7.5 mg 01/02/17 is not helping. Improved with quetiapine but panic morning of . Now on RTC quetiapine and low-dose lorazepam, not using PRNs. * Constipation. Continue senna/docusate ordered from the hospital and Fleets enema and bisacodyl suppository are available as well. Added polyethylene glycol QD 01/03/17. Schedule bisacodyl suppository at 1730 to avoid bowel program during therapy times. * Pain management. Scheduled opiates discontinued 01/15/17; not using PRN oxycodone. Massage therapyt consult re L shoulder. * Blood pressure. On metoprolol 12.5 mg BID, and amlodipine 2.5 mg QD to prevent radial artery vasospasm per CT Surgery. BP may be higher with less opiate. Chronic/stable conditions: * Cardiac function status post surgery. He has been fluid resuscitated as well as diuresed after his surgery. He will have daily weights. D/C fluid restriction 01/05/17. * Tachycardia AM of 01/09/17. Panic vs cardiac/infectious/metabolic. CXR improved, BMP wnl. EKG with T inversion v1 - v3 c/w ischemia. Troponin with indeterminate elevation at 0.133 in the morning, improved to 0.083 at 1500 draw. D/W EMILIA Leonard for Dr. Barragan, who also consulted with Dr. Camara, Cardiology. Likely subendocardial leak related to elevated rate. * Flank pain, feeling hot 01/14/17. No infectious etiology on UA & CBC. BMP wnl. * Status post coronary artery bypass graft. He appears to be healing well. Continue medications as ordered out of the hospital including aspirin, atorvastatin, metoprolol and amlodipine. * Radial artery graft. Continue amlodipine to prevent radial artery spasm in the left wrist. * Sternal precautions x4 weeks with no lifting greater than 10 pounds and avoiding pushing or pulling activities. * Wound care. Wounds may be left open to air, cleansed daily with soap and water and no creams or ointments to be used until scabs come off. * Cough without dyspnea. Chest x-ray 01/01/17 was improving. Continues to improve on CXR 01/03/17. Continue to monitor. * Postsurgical anemia. We will repeat a CBC in the morning to ensure stability. FOLLOW UP: Seen by Dr. Barragan, cardiothoracic surgeon, 01/15/17 on Inpatient Rehabilitation. Follow up with incinerator operator Dr. Gandhi and primary care provider, Dr. Raj Beard after discharge from inpatient rehabilitation. Tentative discharge of 02/13/17, depending on progress. 01/16/17 13:07 Subjective: No complaints. Not feeling anxious, sleeping well. Says he walked today with therapy. Has L shoulder pain and requests massage. Objective: Vital Signs Temp Pulse Resp BP Pulse Ox 36.6 C 97 18 96/67 L 94 01/16/17 07:04 01/16/17 08:46 01/16/17 07:04 01/16/17 08:46 01/16/17 07:04 Laboratory Results 01/14/17 10:40 01/14/17 10:40 01/15/17 01/16/17 01/17/17 05:59 05:59 05:59 Intake Total 826 2020 150 Output Total 850 300 Balance -24 1720 150 Physical Exam - Physical Exam General Appearance: WD/WN, alert, no apparent distress Respiratory: normal breath sounds, No crackles, No rhonchi, No wheezing Cardiac/Chest: regular rate, rhythm, No edema Skin: normal color, warm/dry Neuro/Psych: alert, normal mood/affect, oriented x 3, motor weakness (LUE > NAYELI) , other (L neglect noted: does not unlock L wheelchair brake prior to attempting to self-propel in room) ICD10 Worksheet Patient Problems: Problems Problem Status Onset Hemiparesis Acute S/P AVR Acute S/P CABG x 3 Acute S/P aortic aneurysm repair Acute Unstable angina pectoris Acute Aortic aneurysm Chronic Bicuspid aortic valve Chronic
--- NOTE | 2017-01-16 16:45 | SOAPPROG ---
SOAP Progress Note Assessment/Plan: Assessment: Plan: 01/11/17 14:36 PSYCHIATRY FOLLOWUP: Pt seen in f/u 01/09 with check in with Nursing 01/10 and . In contact 01/09 seen alone and with Nursing and pt in family meeting. Medications reviewed in detail along with Care Plan strategies. ON EXAM (01/09): pt presented as calm, cooperative, conversant; concrete, understandable, and appeared to comprehend the addition of Ativan 12.5 mg qid to the standing Seroquel, the value and indications of using the prn Ativan as ordered for emerging anxiety sx; Also reviewed the CP strategies a/w using digital clock for time orientation and the white board for family visit/call times. UPDATE - Nursing reports pt has been significantly calmer and panic-free last 60 + hours and also sleeping is much improved; is complying with po meds including the added standing Ativan will follow; can be reached at [phone] 01/16/17 16:45 PSYCHIATRY FOLLOWUP: Pt sleeping at time of contact; case reviewed per chart notes and with Nursing directly; pt sustaining progress with rehab program; today walked for first time; slee remains improved as does positive control of anxiety when awake; is not using prn Ativan but c/w standing psychoactives; Nursing does not report incidents of regressive behaviors seen earlier in course. IMPRESSION: sustaining stable mental status and sleept pattern remains improved on current meds regimen and applied Care Plan RECOMMENDATIONS: no change in current meds or management plan; will discuss case with Dr. Crespo 01/19 Objective: Vital Signs Temp Pulse Resp BP Pulse Ox 36.6 C 97 18 96/67 L 94 01/16/17 07:04 01/16/17 08:46 01/16/17 07:04 01/16/17 08:46 01/16/17 07:04 Laboratory Results 01/14/17 10:40 01/14/17 10:40 01/15/17 01/16/17 01/17/17 05:59 05:59 05:59 Intake Total 826 2020 386 Output Total 850 300 750 Balance -24 1720 -364 ICD10 Worksheet Patient Problems: Problems Problem Status Onset Hemiparesis Acute S/P AVR Acute S/P CABG x 3 Acute S/P aortic aneurysm repair Acute Unstable angina pectoris Acute Aortic aneurysm Chronic Bicuspid aortic valve Chronic
[2017-01-16] MEDS: QUEtiapine FUMARATE 50 MG TAB PO SCH (20:40)
[2017-01-16] MEDS: MIRTAZAPINE 15 MG TAB PO SCH (20:40)
[2017-01-16] MEDS: BISACODYL 10 MG SUPP PR SCH (20:45)
[2017-01-17] MEDS: ATORVASTATIN CALCIUM 20 MG TAB PO SCH (08:57)
[2017-01-17] MEDS: amLODIPine BESYLATE 5 MG TAB PO SCH (08:57)
[2017-01-17] MEDS: ASPIRIN 81 MG CHEWABLE TAB PO SCH (08:57)
[2017-01-17] MEDS: LORazepam 0.5 MG TAB PO SCH ×4 (08:58→20:16)
[2017-01-17] MEDS: METOPROLOL TARTRATE 25 MG TAB PO SCH ×2 (08:58→20:16)
[2017-01-17] MEDS: ENOXAPARIN 40 MG/0.4 ML SYR SC SCH (08:58)
[2017-01-17] MEDS: QUEtiapine FUMARATE 25 MG TAB PO SCH ×3 (08:59→17:30)
[2017-01-17] MEDS: oxyCODONE IR 5 MG TAB PO PRN ×2 (08:59→17:26)
[2017-01-17] MEDS: POLYETHYLENE GLYCOL 3350 17 GM PKT PO SCH (09:01)
--- NOTE | 2017-01-17 09:29 | SOAPPROG ---
SOAP Progress Note Assessment/Plan: Assessment: Assessment: * Perioperative cerebrovascular accident on 12/26/16 with right-sided weakness and left-sided flaccid paralysis. Initial FIM 32 on 01/05/17; gain to 45 on 01/09, gain to 66 as of 01/15/17 Beginning to walk, 20' X 3 on 01/16/17. Transfers improving towards CGA. Has L neglect. Continue PT & OT to optimize mobility and activities of daily living. Fluoxetine was initiated at 10 mg daily for neuro recovery and was to be titrated to 20 mg today 01/05/17 but he did not tolerating it with increased anxiety +/- akathisia; D/C'd 01/05/17. * Cognitive impairment with deficit to memory, problem solving and initiation. Continue Speech and Language Pathology. * LEFT SHOULDER PAIN-SECONDARY TO SUBLUXATION ON PARETIC SIDE. OT TO TRY E- STIM TO MINIMIZE SUBLUXATION. WILL BEGIN LIDODERM PATCH 12 HRS ON AND 12 HRS OFF. * Anemia, post-surgical, worse on blood draw 01/14/17. Reticulocyte count appropriately high; hemoccult stool negative X 2. * Anxiety/akathisia. D/C'd hydroxyzine 01/05/17 due to adverse effects of constipation and dry mouth. Appreciate the help of psychiatry. Much improved with low-dose quetiapine. * Insomnia. D/C zolpidem and melatonin as they have not worked. Mirtazapine 7.5 mg 01/02/17 is not helping. Improved with quetiapine but panic morning of . Now on RTC quetiapine and low-dose lorazepam, not using PRNs. * Constipation. NURSING REQUESTS CHANGING SUPPOSITORY TO QO DAY. Continue senna/ docusate ordered from the hospital and Fleets enema and bisacodyl suppository are available as well. Added polyethylene glycol QD 01/03/17. Schedule bisacodyl suppository at 1730 to avoid bowel program during therapy times. * Pain management. PATIENT WAS ADVISED TO ASK FOR OXYCODONE AT NIGHT FOR LEFT SHOULDER PAIN WHICH IS DISRUPTING SLEEP. Scheduled opiates discontinued 01/15/17 ; not using PRN oxycodone. Massage therapy consult re L shoulder. * Blood pressure. On metoprolol 12.5 mg BID, and amlodipine 2.5 mg QD to prevent radial artery vasospasm per CT Surgery. BP may be higher with less opiate. Chronic/stable conditions: * Cardiac function status post surgery. He has been fluid resuscitated as well as diuresed after his surgery. He will have daily weights. D/C fluid restriction 01/05/17. * Tachycardia AM of 01/09/17. Panic vs cardiac/infectious/metabolic. CXR improved, BMP wnl. EKG with T inversion v1 - v3 c/w ischemia. Troponin with indeterminate elevation at 0.133 in the morning, improved to 0.083 at 1500 draw. D/W EMILIA Leonard for Dr. Barragan, who also consulted with Dr. Camara, Cardiology. Likely subendocardial leak related to elevated rate. * Flank pain, feeling hot 01/14/17. No infectious etiology on UA & CBC. BMP wnl. * Status post coronary artery bypass graft. He appears to be healing well. Continue medications as ordered out of the hospital including aspirin, atorvastatin, metoprolol and amlodipine. * Radial artery graft. Continue amlodipine to prevent radial artery spasm in the left wrist. * Sternal precautions x4 weeks with no lifting greater than 10 pounds and avoiding pushing or pulling activities. * Wound care. Wounds may be left open to air, cleansed daily with soap and water and no creams or ointments to be used until scabs come off. * Cough without dyspnea. Chest x-ray 01/01/17 was improving. Continues to improve on CXR 01/03/17. Continue to monitor. * Postsurgical anemia. We will repeat a CBC in the morning to ensure stability. Plan: 01/17/17 09:30 Subjective: He c/o left shoulder pain which is interfering with sleep. His states OT is fitting him for a shoulder sling. He reports he is beginning to get some return in LUE motor function. Objective: Vital Signs Temp Pulse Resp BP Pulse Ox 36.4 C 96 15 103/61 95 01/17/17 07:40 01/17/17 08:58 01/17/17 07:40 01/17/17 08:58 01/17/17 07:40 Laboratory Results 01/14/17 10:40 01/14/17 10:40 01/16/17 01/17/17 01/18/17 05:59 05:59 05:59 Intake Total 2019 786 600 Output Total 300 750 Balance 1720 36 600 Physical Exam - Physical Exam General Appearance: WD/WN, alert, no apparent distress Respiratory: lungs clear, normal breath sounds Cardiac/Chest: No edema, No JVD Abdomen: normal bowel sounds, non-tender, soft Skin: warm/dry Extremities: other (Left shoulder subuxation.), No swelling, No Saji's sign Neuro/Psych: alert, oriented x 3, motor weakness (left hemiparesis. ) ICD10 Worksheet Patient Problems: Problems Problem Status Onset Hemiparesis Acute S/P AVR Acute S/P CABG x 3 Acute S/P aortic aneurysm repair Acute Unstable angina pectoris Acute Aortic aneurysm Chronic Bicuspid aortic valve Chronic
[2017-01-17] MEDS: LIDOCAINE 5% 1 EA PATCH TD SCH (10:29)
[2017-01-17] MEDS: QUEtiapine FUMARATE 50 MG TAB PO SCH ×2 (14:03→20:16)
[2017-01-17] MEDS: BISACODYL 10 MG SUPP PR SCH (19:21)
[2017-01-17] MEDS: MIRTAZAPINE 15 MG TAB PO SCH (20:16)
[2017-01-17] MEDS: PATCH REMOVAL 1 EA PATCH TD SCH (20:36)
[2017-01-18] MEDS: ASPIRIN 81 MG CHEWABLE TAB PO SCH (08:53)
[2017-01-18] MEDS: amLODIPine BESYLATE 5 MG TAB PO SCH (08:53)
[2017-01-18] MEDS: ATORVASTATIN CALCIUM 20 MG TAB PO SCH (08:53)
[2017-01-18] MEDS: ENOXAPARIN 40 MG/0.4 ML SYR SC SCH (08:53)
[2017-01-18] MEDS: LORazepam 0.5 MG TAB PO SCH ×4 (08:54→20:15)
[2017-01-18] MEDS: LIDOCAINE 5% 1 EA PATCH TD SCH (08:54)
[2017-01-18] MEDS: METOPROLOL TARTRATE 25 MG TAB PO SCH ×2 (08:55→20:22)
[2017-01-18] MEDS: POLYETHYLENE GLYCOL 3350 17 GM PKT PO SCH (08:55)
[2017-01-18] MEDS: QUEtiapine FUMARATE 25 MG TAB PO SCH ×3 (08:55→17:44)
--- NOTE | 2017-01-18 09:27 | SOAPPROG ---
SOAP Progress Note Assessment/Plan: Assessment: Assessment: * Perioperative cerebrovascular accident on 12/26/16 with right-sided weakness and left-sided flaccid paralysis. Initial FIM 32 on 01/05/17; gain to 45 on 01/09, gain to 66 as of 01/15/17 Beginning to walk, 20' X 3 on 01/16/17. Transfers improving towards CGA. Has L neglect. Continue PT & OT to optimize mobility and activities of daily living. Fluoxetine was initiated at 10 mg daily for neuro recovery and was to be titrated to 20 mg today 01/05/17 but he did not tolerating it with increased anxiety +/- akathisia; D/C'd 01/05/17. * Cognitive impairment with deficit to memory, problem solving and initiation. Continue Speech and Language Pathology. * LEFT SHOULDER PAIN-SECONDARY TO SUBLUXATION ON PARETIC SIDE. PAIN MUCH IMPROVED SINCE LIDODERM PATCH STARTED YESTERDAY. OT TO TRY E-STIM TO MINIMIZE SUBLUXATION. * Anemia, post-surgical, worse on blood draw 01/14/17. Reticulocyte count appropriately high; hemoccult stool negative X 2. * Anxiety/akathisia. D/C'd hydroxyzine 01/05/17 due to adverse effects of constipation and dry mouth. Appreciate the help of psychiatry. Much improved with low-dose quetiapine. * Insomnia. D/C zolpidem and melatonin as they have not worked. Mirtazapine 7.5 mg 01/02/17 is not helping. Improved with quetiapine but panic morning of . Now on RTC quetiapine and low-dose lorazepam, not using PRNs. * Constipation. NURSING REQUESTS CHANGING SUPPOSITORY TO QO DAY. Continue senna/ docusate ordered from the hospital and Fleets enema and bisacodyl suppository are available as well. Added polyethylene glycol QD 01/03/17. Schedule bisacodyl suppository at 1730 to avoid bowel program during therapy times. * Pain management. PATIENT REPORTS SLEEP MUCH IMPROVED LAST PM WITH OXYCODONE * Blood pressure. On metoprolol 12.5 mg BID, and amlodipine 2.5 mg QD to prevent radial artery vasospasm per CT Surgery. BP may be higher with less opiate. Chronic/stable conditions: * Cardiac function status post surgery. He has been fluid resuscitated as well as diuresed after his surgery. He will have daily weights. D/C fluid restriction 01/05/17. * Tachycardia AM of 01/09/17. Panic vs cardiac/infectious/metabolic. CXR improved, BMP wnl. EKG with T inversion v1 - v3 c/w ischemia. Troponin with indeterminate elevation at 0.133 in the morning, improved to 0.083 at 1500 draw. D/W EMILIA Leonard for Dr. Barragan, who also consulted with Dr. Camara, Cardiology. Likely subendocardial leak related to elevated rate. * Flank pain, feeling hot 01/14/17. No infectious etiology on UA & CBC. BMP wnl. * Status post coronary artery bypass graft. He appears to be healing well. Continue medications as ordered out of the hospital including aspirin, atorvastatin, metoprolol and amlodipine. * Radial artery graft. Continue amlodipine to prevent radial artery spasm in the left wrist. * Sternal precautions x4 weeks with no lifting greater than 10 pounds and avoiding pushing or pulling activities. * Wound care. Wounds may be left open to air, cleansed daily with soap and water and no creams or ointments to be used until scabs come off. * Cough without dyspnea. Chest x-ray 01/01/17 was improving. Continues to improve on CXR 01/03/17. Continue to monitor. * Postsurgical anemia. We will repeat a CBC in the morning to ensure stability. Plan: 01/17/17 09:30 01/18/17 09:25 Subjective: Reports left shoulder pain much improved since Lidoderm patch started yesterday. Objective: Vital Signs Temp Pulse Resp BP Pulse Ox 36.8 C 87 16 102/62 93 01/18/17 06:49 01/18/17 08:55 01/18/17 06:49 01/18/17 08:55 01/18/17 06:49 Laboratory Results 01/14/17 10:40 01/14/17 10:40 01/17/17 01/18/17 01/19/17 05:59 05:59 05:59 Intake Total 786 2148 Output Total 750 975 Balance 36 1173 Physical Exam - Physical Exam General Appearance: WD/WN, alert Respiratory: lungs clear, normal breath sounds Cardiac/Chest: No edema, No JVD Abdomen: non-tender, soft Skin: normal color, warm/dry Extremities: other (left shoulder subluxation), No swelling, No Saji's sign Neuro/Psych: motor weakness (left hemiparesis LUE>LLE) ICD10 Worksheet Patient Problems: Problems Problem Status Onset Hemiparesis Acute S/P AVR Acute S/P CABG x 3 Acute S/P aortic aneurysm repair Acute Unstable angina pectoris Acute Aortic aneurysm Chronic Bicuspid aortic valve Chronic
[2017-01-18] MEDS: oxyCODONE IR 5 MG TAB PO PRN ×2 (15:02→20:15)
[2017-01-18] MEDS: SENNOSIDES/DOCUSATE SODIUM TAB PO PRN (15:03)
[2017-01-18] MEDS: MIRTAZAPINE 15 MG TAB PO SCH (20:15)
[2017-01-18] MEDS: ACETAMINOPHEN 325 MG TAB PO PRN (20:16)
[2017-01-18] MEDS: QUEtiapine FUMARATE 50 MG TAB PO SCH (20:16)
[2017-01-18] MEDS: BISACODYL 10 MG SUPP PR SCH (20:24)
[2017-01-19] MEDS: PATCH REMOVAL 1 EA PATCH TD SCH ×2 (05:31→21:13)
[2017-01-19] MEDS ORDERED: SENNOSIDES/DOCUSATE SODIUM TAB PO SCH (09:00)
[2017-01-19] MEDS: amLODIPine BESYLATE 5 MG TAB PO SCH (11:28)
[2017-01-19] MEDS: ASPIRIN 81 MG CHEWABLE TAB PO SCH (11:29)
[2017-01-19] MEDS: ENOXAPARIN 40 MG/0.4 ML SYR SC SCH (11:33)
[2017-01-19] MEDS: LIDOCAINE 5% 1 EA PATCH TD SCH (11:33)
[2017-01-19] MEDS: ATORVASTATIN CALCIUM 20 MG TAB PO SCH (11:33)
[2017-01-19] MEDS: METOPROLOL TARTRATE 25 MG TAB PO SCH ×2 (11:34→21:08)
[2017-01-19] MEDS: LORazepam 0.5 MG TAB PO SCH ×4 (11:34→21:08)
[2017-01-19] MEDS: POLYETHYLENE GLYCOL 3350 17 GM PKT PO SCH (11:35)
[2017-01-19] MEDS: QUEtiapine FUMARATE 25 MG TAB PO SCH ×3 (11:35→17:51)
--- NOTE | 2017-01-19 12:24 | SOAPPROG ---
SOAP Progress Note Assessment/Plan: Assessment: * Perioperative cerebrovascular accident on 12/26/16 with right-sided weakness and left-sided flaccid paralysis. Initial FIM 32 on 01/05/17; gain to 45 on 01/09, gain to 66 as of 01/15/17 Beginning to walk, 20' X 3 on 01/16/17. Transfers improving towards CGA. Has L neglect. Continue PT & OT to optimize mobility and activities of daily living. Fluoxetine was initiated at 10 mg daily for neuro recovery and was to be titrated to 20 mg today 01/05/17 but he did not tolerating it with increased anxiety +/- akathisia; D/C'd 01/05/17. * Cognitive impairment with deficit to memory, problem solving and initiation. Continue Speech and Language Pathology. * L shoulder pain/subluxation. Neuro sling per OT. Continue lidocaine patch , and oxycodone PRN. * Anemia, post-surgical, worse on blood draw 01/14/17. Reticulocyte count appropriately high; hemoccult stool negative X 2. * Anxiety/akathisia. D/C'd hydroxyzine 01/05/17 due to adverse effects of constipation and dry mouth. Appreciate the help of psychiatry. Much improved with scheduled low-dose quetiapine & lorazepam. Not using PRNs. D/W Psychiatry 01/19/17 re possible taper of medications.. * Insomnia. D/C zolpidem and melatonin as they have not worked. Mirtazapine 7.5 mg 01/02/17 is not helping. Improved with quetiapine but panic morning of . Now on RTC quetiapine and low-dose lorazepam, not using PRNs. * Constipation. Continue senna/docusate ordered from the hospital and Fleets enema and bisacodyl suppository are available as well. Added polyethylene glycol QD 01/03/17. Schedule bisacodyl suppository at 1730 to avoid bowel program during therapy times. * Pain management. Scheduled opiates discontinued 01/15/17; not using PRN oxycodone. Massage therapy consult re L shoulder. * Blood pressure. On metoprolol 12.5 mg BID, and amlodipine 2.5 mg QD to prevent radial artery vasospasm per CT Surgery. BP may be higher with less opiate. Chronic/stable conditions: * Cardiac function status post surgery. He has been fluid resuscitated as well as diuresed after his surgery. He will have daily weights. D/C fluid restriction 01/05/17. * Tachycardia AM of 01/09/17. Panic vs cardiac/infectious/metabolic. CXR improved, BMP wnl. EKG with T inversion v1 - v3 c/w ischemia. Troponin with indeterminate elevation at 0.133 in the morning, improved to 0.083 at 1500 draw. D/W EMILIA Leonard for Dr. Barragan, who also consulted with Dr. Camara, Cardiology. Likely subendocardial leak related to elevated rate. * Flank pain, feeling hot 01/14/17. No infectious etiology on UA & CBC. BMP wnl. * Status post coronary artery bypass graft. He appears to be healing well. Continue medications as ordered out of the hospital including aspirin, atorvastatin, metoprolol and amlodipine. * Radial artery graft. Continue amlodipine to prevent radial artery spasm in the left wrist. * Sternal precautions x4 weeks with no lifting greater than 10 pounds and avoiding pushing or pulling activities. * Wound care. Wounds may be left open to air, cleansed daily with soap and water and no creams or ointments to be used until scabs come off. * Cough without dyspnea. Chest x-ray 01/01/17 was improving. Continues to improve on CXR 01/03/17. Continue to monitor. * Postsurgical anemia. We will repeat a CBC in the morning to ensure stability. FOLLOW UP: Seen by Dr. Barragan, cardiothoracic surgeon, 01/15/17 on Inpatient Rehabilitation. Follow up with job estimator Dr. Gandhi and primary care provider, Dr. Raj Beard after discharge from inpatient rehabilitation. Tentative discharge of 02/13/17, depending on progress. 01/16/17 13:07 01/19/17 12:06 Subjective: Would like to spend more therapy time on other things than donning FITO hose. O/W w/out complaint. Starting to walk. Has some L shoulder pain, improved with lidocaine patch. Objective: Vital Signs Temp Pulse Resp BP Pulse Ox 36.5 C 103 H 16 102/63 94 01/19/17 08:00 01/19/17 11:34 01/19/17 08:00 01/19/17 11:34 01/19/17 08:00 Laboratory Results 01/14/17 10:40 01/14/17 10:40 01/18/17 01/19/17 01/20/17 05:59 05:59 05:59 Intake Total 2148 1208 600 Output Total 975 875 Balance 1173 333 600 Physical Exam - Physical Exam General Appearance: WD/WN, alert, no apparent distress Respiratory: normal breath sounds, No crackles, No rhonchi, No wheezing Cardiac/Chest: regular rate, rhythm, No edema Skin: normal color, warm/dry Neuro/Psych: alert, normal mood/affect, oriented x 3, motor weakness (LUE > LLE) ICD10 Worksheet Patient Problems: Problems Problem Status Onset Hemiparesis Acute S/P AVR Acute S/P CABG x 3 Acute S/P aortic aneurysm repair Acute Unstable angina pectoris Acute Aortic aneurysm Chronic Bicuspid aortic valve Chronic
[2017-01-19] MEDS ORDERED: SENNOSIDES/DOCUSATE SODIUM TAB PO PRN (12:54)
[2017-01-19] MEDS: oxyCODONE IR 5 MG TAB PO PRN (13:44)
[2017-01-19] MEDS: BISACODYL 10 MG SUPP PR SCH (19:10)
[2017-01-19] MEDS: QUEtiapine FUMARATE 50 MG TAB PO SCH (21:08)
[2017-01-19] MEDS: MIRTAZAPINE 15 MG TAB PO SCH (21:08)
[2017-01-20] MEDS: amLODIPine BESYLATE 5 MG TAB PO SCH (08:32)
[2017-01-20] MEDS: ENOXAPARIN 40 MG/0.4 ML SYR SC SCH (08:33)
[2017-01-20] MEDS: ASPIRIN 81 MG CHEWABLE TAB PO SCH (08:33)
[2017-01-20] MEDS: LIDOCAINE 5% 1 EA PATCH TD SCH (08:33)
[2017-01-20] MEDS: ATORVASTATIN CALCIUM 20 MG TAB PO SCH (08:33)
[2017-01-20] MEDS: LORazepam 0.5 MG TAB PO SCH ×4 (08:33→21:44)
[2017-01-20] MEDS: POLYETHYLENE GLYCOL 3350 17 GM PKT PO SCH (08:34)
[2017-01-20] MEDS: METOPROLOL TARTRATE 25 MG TAB PO SCH ×2 (08:34→21:42)
[2017-01-20] MEDS: QUEtiapine FUMARATE 25 MG TAB PO SCH ×3 (08:35→17:27)
--- NOTE | 2017-01-20 08:45 | SOAPPROG ---
TANYA Progress Note Assessment/Plan: Assessment: 46-year-old male who had a perioperative stroke after a three vessel coronary artery bypass graft and aortic root replacement with right-sided weakness and left-sided flaccid paralysis. Based on personal review of the MRI, he had multiple acute and subacute supratentorial infarcts more so on the right than on the left. 01/20/2017 doing well, shoulder pain today is absent. Anxious to continue training in walking. Currently using a left-sided hospital provided AFO, plan to order a new custom one today. Metoprolol held for one dose because of hypotension, Decreasing metoprolol to 6.125 mg from present dose. Also, goal to decrease his standing dose of lorazepam or mirtazapine as he notes his last panic attack was over a week ago, he is feeling much better. On discussion with Dr. Crespo, plan to defer to psychiatry for medication management in this regard. Otherwise, plan below is unchanged. * Perioperative cerebrovascular accident on 12/26/16 with right-sided weakness and left-sided flaccid paralysis. Initial FIM 32 on 01/05/17; gain to 45 on 01/09, gain to 66 as of 01/15/17 Beginning to walk, 20' X 3 on 01/16/17. Transfers improving towards CGA. Has L neglect. Continue PT & OT to optimize mobility and activities of daily living. Fluoxetine was initiated at 10 mg daily for neuro recovery and was to be titrated to 20 mg today 01/05/17 but he did not tolerating it with increased anxiety +/- akathisia; D/C'd 01/05/17. * Cognitive impairment with deficit to memory, problem solving and initiation. Continue Speech and Language Pathology. * L shoulder pain/subluxation. Neuro sling per OT. Continue lidocaine patch , and oxycodone PRN. * Anemia, post-surgical, worse on blood draw 01/14/17. Reticulocyte count appropriately high; hemoccult stool negative X 2. * Anxiety/akathisia. D/C'd hydroxyzine 01/05/17 due to adverse effects of constipation and dry mouth. Appreciate the help of psychiatry. Much improved with scheduled low-dose quetiapine & lorazepam. Not using PRNs. D/W Psychiatry 01/19/17 re possible taper of medications. * Insomnia. D/C zolpidem and melatonin as they have not worked. Mirtazapine 7.5 mg 01/02/17 is not helping. Improved with quetiapine but panic morning of . Now on RTC quetiapine and low-dose lorazepam, not using PRNs. * Constipation. Continue senna/docusate ordered from the hospital and Fleets enema and bisacodyl suppository are available as well. Added polyethylene glycol QD 01/03/17. Schedule bisacodyl suppository at 1730 to avoid bowel program during therapy times. * Pain management. Scheduled opiates discontinued 01/15/17; not using PRN oxycodone. Massage therapy consult re L shoulder. * Blood pressure. On metoprolol 6.125 mg BID ( To remain on a beta kaye, avoiding competitions of hypotension, should get this dose regardless of blood pressure except in an acute circumstance), and amlodipine 2.5 mg QD to prevent radial artery vasospasm per CT Surgery. BP may be higher with less opiate. Chronic/stable conditions: * Cardiac function status post surgery. He has been fluid resuscitated as well as diuresed after his surgery. He will have daily weights. D/C fluid restriction 01/05/17. * Tachycardia AM of 01/09/17. Panic vs cardiac/infectious/metabolic. CXR improved, BMP wnl. EKG with T inversion v1 - v3 c/w ischemia. Troponin with indeterminate elevation at 0.133 in the morning, improved to 0.083 at 1500 draw. D/W EMILIA Leonard for Dr. Barragan, who also consulted with Dr. Camara, Cardiology. Likely subendocardial leak related to elevated rate. * Flank pain, feeling hot 01/14/17. No infectious etiology on UA & CBC. BMP wnl. * Status post coronary artery bypass graft. He appears to be healing well. Continue medications as ordered out of the hospital including aspirin, atorvastatin, metoprolol and amlodipine. * Radial artery graft. Continue amlodipine to prevent radial artery spasm in the left wrist. * Sternal precautions x4 weeks with no lifting greater than 10 pounds and avoiding pushing or pulling activities. * Wound care. Wounds may be left open to air, cleansed daily with soap and water and no creams or ointments to be used until scabs come off. * Cough without dyspnea. Chest x-ray 01/01/17 was improving. Continues to improve on CXR 01/03/17. Continue to monitor. * Postsurgical anemia. We will repeat a CBC in the morning to ensure stability. FOLLOW UP: Seen by Dr. Barragan, cardiothoracic surgeon, 01/15/17 on Inpatient Rehabilitation. Follow up with observer gravity prospecting Dr. Gandhi and primary care provider, Dr. Raj Beard after discharge from inpatient rehabilitation. Tentative discharge of 02/13/17, depending on progress. 01/03/17 11:24 01/03/17 11:27 01/04/17 11:52 01/08/17 10:08 01/20/17 08:41 01/20/17 15:30 Subjective: CC: agitation monitoring No acute events overnight. Patient endorses that his last panic attack was over a week ago. He is interested in weaning off medications as possible. Nurse noted that he had a slightly low blood pressure, metoprolol was held this morning. He is currently using an AFO provided by the hospital, has not had a custom molded AFO ordered yet. Continues to have his left shoulder in a sling, pain is not present this morning. His spirits are good and he is feeling that rehab is going well, slowly but well. Denies any shortness of breath or chest pain, sleeping well. Objective: Vital Signs Temp Pulse Resp BP Pulse Ox 36.4 C 62 18 94/58 L 94 01/20/17 06:55 01/20/17 08:34 01/20/17 06:55 01/20/17 08:34 01/20/17 06:55 Laboratory Results 01/14/17 10:40 01/14/17 10:40 01/19/17 01/20/17 01/21/17 05:59 05:59 05:59 Intake Total 1208 1320 Output Total 875 550 Balance 333 770 Physical Exam - Physical Exam General Appearance: WD/WN, alert, no apparent distress EENT: No scleral icterus (R), No scleral icterus (L) Respiratory: No respiratory distress, No accessory muscle use Cardiac/Chest: normal peripheral pulses, regular rate, rhythm, No edema Skin: normal color, warm/dry, No cyanosis Extremities: No pedal edema, No swelling Neuro/Psych: alert, normal mood/affect, other ( Continue left-sided hemiparesis , no pain about the left shoulder. Left foot is in a [id number] AFO, no active muscle contraction on ankle dorsiflexion or plantarflexion, he has less than 3/5 strength in his left-sided quadriceps) ICD10 Worksheet Patient Problems: Problems Problem Status Onset Hemiparesis Acute S/P AVR Acute S/P CABG x 3 Acute S/P aortic aneurysm repair Acute Unstable angina pectoris Acute Aortic aneurysm Chronic Bicuspid aortic valve Chronic
[2017-01-20] MEDS ORDERED: METOPROLOL TARTRATE 25 MG TAB PO SCH (09:20)
[2017-01-20] MEDS: ACETAMINOPHEN 325 MG TAB PO PRN (17:27)
[2017-01-20] MEDS: BISACODYL 10 MG SUPP PR SCH (20:06)
[2017-01-20] MEDS: MIRTAZAPINE 15 MG TAB PO SCH (21:43)
[2017-01-20] MEDS: QUEtiapine FUMARATE 50 MG TAB PO SCH (21:43)
[2017-01-20] MEDS: PATCH REMOVAL 1 EA PATCH TD SCH (21:46)
[2017-01-20] MEDS: oxyCODONE IR 5 MG TAB PO PRN (22:11)
[2017-01-21] MEDS: amLODIPine BESYLATE 5 MG TAB PO SCH (08:50)
[2017-01-21] MEDS: ASPIRIN 81 MG CHEWABLE TAB PO SCH (08:52)
[2017-01-21] MEDS: QUEtiapine FUMARATE 25 MG TAB PO SCH ×2 (08:54→20:01)
[2017-01-21] MEDS: ATORVASTATIN CALCIUM 20 MG TAB PO SCH (08:54)
[2017-01-21] MEDS: LORazepam 0.5 MG TAB PO SCH ×2 (08:54→20:01)
[2017-01-21] MEDS: METOPROLOL TARTRATE 25 MG TAB PO SCH ×2 (08:55→20:02)
[2017-01-21] MEDS: ENOXAPARIN 40 MG/0.4 ML SYR SC SCH (08:57)
[2017-01-21] MEDS: LIDOCAINE 5% 1 EA PATCH TD SCH (08:58)
[2017-01-21] MEDS ORDERED: BISACODYL 10 MG SUPP PR PRN (09:04)
--- NOTE | 2017-01-21 10:29 | SOAPPROG ---
SOAP Progress Note Assessment/Plan: Assessment: * Perioperative cerebrovascular accident on 12/26/16 with right-sided weakness and left-sided flaccid paralysis. Initial FIM 32 on 01/05/17; gain to 45 on 01/09, gain to 66 as of 01/15/17 Beginning to walk, 20' X 3 on 01/16/17. Transfers improving towards CGA. Has L neglect. Continue PT & OT to optimize mobility and activities of daily living. Fluoxetine was initiated at 10 mg daily for neuro recovery and was to be titrated to 20 mg today 01/05/17 but he did not tolerating it with increased anxiety +/- akathisia; D/C'd 01/05/17. * Cognitive impairment with deficit to memory, problem solving and initiation. Continue Speech and Language Pathology. * L shoulder pain/subluxation. Neuro sling per OT. Continue lidocaine patch , and oxycodone PRN. * Anemia, post-surgical, worse on blood draw 01/14/17. Reticulocyte count appropriately high; hemoccult stool negative X 2. * Anxiety/akathisia. D/C'd hydroxyzine 01/05/17 due to adverse effects of constipation and dry mouth. Appreciate the help of psychiatry. Much improved with scheduled low-dose quetiapine & lorazepam. Not using PRNs. Begin taper of medications 01/21/17: change scheduled lorazepam to 0.125 mg BID and quetiapine to 25 mg BID + 50 mg at HS.. * Insomnia. D/C zolpidem and melatonin as they have not worked. Mirtazapine 7.5 mg 01/02/17 is not helping. Improved with quetiapine but panic morning of . Quetiapine + lorazepam have been effective. * Constipation. Continue senna/docusate ordered from the hospital and Fleets enema and bisacodyl suppository are available as well. Added polyethylene glycol QD 01/03/17. Schedule bisacodyl suppository at 1730 to avoid bowel program during therapy times. * Pain management. Scheduled opiates discontinued 01/15/17; not using PRN oxycodone. Massage therapy consult re L shoulder. * Blood pressure. On metoprolol 12.5 mg BID, and amlodipine 2.5 mg QD to prevent radial artery vasospasm per CT Surgery. BP may be higher with less opiate. Chronic/stable conditions: * Cardiac function status post surgery. He has been fluid resuscitated as well as diuresed after his surgery. He will have daily weights. D/C fluid restriction 01/05/17. * Tachycardia AM of 01/09/17. Panic vs cardiac/infectious/metabolic. CXR improved, BMP wnl. EKG with T inversion v1 - v3 c/w ischemia. Troponin with indeterminate elevation at 0.133 in the morning, improved to 0.083 at 1500 draw. D/W EMILIA Leonard for Dr. Barragan, who also consulted with Dr. Camara, Cardiology. Likely subendocardial leak related to elevated rate. * Flank pain, feeling hot 01/14/17. No infectious etiology on UA & CBC. BMP wnl. * Status post coronary artery bypass graft. He appears to be healing well. Continue medications as ordered out of the hospital including aspirin, atorvastatin, metoprolol and amlodipine. * Radial artery graft. Continue amlodipine to prevent radial artery spasm in the left wrist. * Sternal precautions x4 weeks with no lifting greater than 10 pounds and avoiding pushing or pulling activities. * Wound care. Wounds may be left open to air, cleansed daily with soap and water and no creams or ointments to be used until scabs come off. * Cough without dyspnea. Chest x-ray 01/01/17 was improving. Continues to improve on CXR 01/03/17. Continue to monitor. * Postsurgical anemia. We will repeat a CBC in the morning to ensure stability. FOLLOW UP: Seen by Dr. Barragan, cardiothoracic surgeon, 01/15/17 on Inpatient Rehabilitation. Follow up with sweet potato disintegrator Dr. Gandhi and primary care provider, Dr. Raj Beard after discharge from inpatient rehabilitation. Tentative discharge of 02/13/17, depending on progress. 01/21/17 14:17 Subjective: No complaints. Sleeping well. Denies anxiety. Objective: Vital Signs Temp Pulse Resp BP Pulse Ox 36.8 C 92 16 92/60 L 92 01/21/17 06:22 01/21/17 08:55 01/21/17 06:22 01/21/17 08:55 01/21/17 06:22 Laboratory Results 01/14/17 10:40 01/14/17 10:40 01/20/17 01/21/17 01/22/17 05:59 05:59 05:59 Intake Total 1320 1440 354 Output Total 550 700 Balance 770 740 354 Physical Exam - Physical Exam General Appearance: WD/WN, alert, no apparent distress Respiratory: normal breath sounds, No crackles, No rhonchi, No wheezing Cardiac/Chest: edema, No regular rate, rhythm Skin: normal color, warm/dry Neuro/Psych: alert, normal mood/affect, oriented x 3 ICD10 Worksheet Patient Problems: Problems Problem Status Onset Hemiparesis Acute S/P AVR Acute S/P CABG x 3 Acute S/P aortic aneurysm repair Acute Unstable angina pectoris Acute Aortic aneurysm Chronic Bicuspid aortic valve Chronic
[2017-01-21] MEDS: POLYETHYLENE GLYCOL 3350 17 GM PKT PO SCH (11:13)
[2017-01-21] MEDS: MIRTAZAPINE 15 MG TAB PO SCH (20:00)
[2017-01-21] MEDS: oxyCODONE IR 5 MG TAB PO PRN (20:27)
[2017-01-22] MEDS: QUEtiapine FUMARATE 50 MG TAB PO SCH ×2 (01:58→20:17)
--- NOTE | 2017-01-22 08:57 | SOAPPROG ---
SOAP Progress Note Assessment/Plan: Assessment: Plan: 01/11/17 14:36 PSYCHIATRY FOLLOWUP: Pt seen in f/u 01/09 with check in with Nursing 01/10 and . In contact 01/09 seen alone and with Nursing and pt in family meeting. Medications reviewed in detail along with Care Plan strategies. ON EXAM (01/09): pt presented as calm, cooperative, conversant; concrete, understandable, and appeared to comprehend the addition of Ativan 12.5 mg qid to the standing Seroquel, the value and indications of using the prn Ativan as ordered for emerging anxiety sx; Also reviewed the CP strategies a/w using digital clock for time orientation and the white board for family visit/call times. UPDATE - Nursing reports pt has been significantly calmer and panic-free last 60 + hours and also sleeping is much improved; is complying with po meds including the added standing Ativan will follow; can be reached at [phone] 01/16/17 16:45 PSYCHIATRY FOLLOWUP: Pt sleeping at time of contact; case reviewed per chart notes and with Nursing directly; pt sustaining progress with rehab program; today walked for first time; sleep remains improved as does positive control of anxiety when awake; is not using prn Ativan but c/w standing psychoactives; Nursing does not report incidents of regressive behaviors seen earlier in course. IMPRESSION: sustaining stable mental status and sleept pattern remains improved on current meds regimen and applied Care Plan RECOMMENDATIONS: no change in current meds or management plan; will discuss case with Dr. Crespo 01/1901/22/17 08:50 PSYCHIATRY FOLLOWUP: Pt seen with in dining room and case discussed with third and first shift RN's; on direct exanm pt presented as calm, cooperative, conversant; both he and are pleased with his reha progress and emotional state - report minimum breakthru anxiety and stable sleep pattern as do Nursing staff. Pt states he sees "light at the end of the tunnel" referencing his recovery and that he is feeling "hopeful"; concurs in a more measured tone and c c content in reply to my inquiry. IMPRESSION: continued rehabilitative progress, gait/mobility gains continue, using BR independently; sleep remains restored and anxiety control sustained Objective: Vital Signs Temp Pulse Resp BP Pulse Ox 36.6 C 96 18 105/61 94 01/22/17 08:00 01/22/17 08:00 01/22/17 08:00 01/22/17 08:00 01/22/17 08:00 Laboratory Results 01/14/17 10:40 01/14/17 10:40 01/21/17 01/22/17 01/23/17 05:59 05:59 05:59 Intake Total 1440 1094 Output Total 700 500 Balance 740 594 ICD10 Worksheet Patient Problems: Problems Problem Status Onset Hemiparesis Acute S/P AVR Acute S/P CABG x 3 Acute S/P aortic aneurysm repair Acute Unstable angina pectoris Acute Aortic aneurysm Chronic Bicuspid aortic valve Chronic
[2017-01-22] MEDS: POLYETHYLENE GLYCOL 3350 17 GM PKT PO SCH (09:01)
[2017-01-22] MEDS: LIDOCAINE 5% 1 EA PATCH TD SCH (09:01)
[2017-01-22] MEDS: ENOXAPARIN 40 MG/0.4 ML SYR SC SCH (09:01)
--- NOTE | 2017-01-22 09:01 | SOAPPROG ---
SOAP Progress Note Assessment/Plan: Assessment: Plan: 01/11/17 14:36 PSYCHIATRY FOLLOWUP: Pt seen in f/u 01/09 with check in with Nursing 01/10 and . In contact 01/09 seen alone and with Nursing and pt in family meeting. Medications reviewed in detail along with Care Plan strategies. ON EXAM (01/09): pt presented as calm, cooperative, conversant; concrete, understandable, and appeared to comprehend the addition of Ativan 12.5 mg qid to the standing Seroquel, the value and indications of using the prn Ativan as ordered for emerging anxiety sx; Also reviewed the CP strategies a/w using digital clock for time orientation and the white board for family visit/call times. UPDATE - Nursing reports pt has been significantly calmer and panic-free last 60 + hours and also sleeping is much improved; is complying with po meds including the added standing Ativan will follow; can be reached at [phone] 01/16/17 16:45 PSYCHIATRY FOLLOWUP: Pt sleeping at time of contact; case reviewed per chart notes and with Nursing directly; pt sustaining progress with rehab program; today walked for first time; sleep remains improved as does positive control of anxiety when awake; is not using prn Ativan but c/w standing psychoactives; Nursing does not report incidents of regressive behaviors seen earlier in course. IMPRESSION: sustaining stable mental status and sleept pattern remains improved on current meds regimen and applied Care Plan RECOMMENDATIONS: no change in current meds or management plan; will discuss case with Dr. Crespo 01/1901/22/17 08:50 PSYCHIATRY FOLLOWUP: Pt seen with in dining room and case discussed with third and first shift RN's; on direct exam pt presented as calm, cooperative, conversant; both he and are pleased with his rehab progress and emotional state - report minimum breakthru anxiety and stable sleep pattern as do Nursing staff. Pt states he sees "light at the end of the tunnel" referencing his recovery and that he is feeling "hopeful"; concurs in a more measured tone and content in reply to my inquiry. IMPRESSION: continued rehabilitative progress, gait/mobility gains continue, using BR independently; sleep remains restored and anxiety control sustained RECOMMENDATIONS: Agree with decrease in standing Ativan to 0.125 mg bid @ 0800/ hs; suggest decreasing Seroquel to 25 mg bid @ 0800, 1400, and continue Seroquel 50 mg hs; with next cutback assessed in 1 week presuming DC 02/13; will follow with you Objective: Vital Signs Temp Pulse Resp BP Pulse Ox 36.6 C 96 18 105/61 94 01/22/17 08:00 01/22/17 08:00 01/22/17 08:00 01/22/17 08:00 01/22/17 08:00 Laboratory Results 01/14/17 10:40 01/14/17 10:40 01/21/17 01/22/17 01/23/17 05:59 05:59 05:59 Intake Total 1440 1094 Output Total 700 500 Balance 740 210 ICD10 Worksheet Patient Problems: Problems Problem Status Onset Hemiparesis Acute S/P AVR Acute S/P CABG x 3 Acute S/P aortic aneurysm repair Acute Unstable angina pectoris Acute Aortic aneurysm Chronic Bicuspid aortic valve Chronic
[2017-01-22] MEDS: ASPIRIN 81 MG CHEWABLE TAB PO SCH (09:02)
[2017-01-22] MEDS: ATORVASTATIN CALCIUM 20 MG TAB PO SCH (09:02)
[2017-01-22] MEDS: QUEtiapine FUMARATE 25 MG TAB PO SCH ×2 (09:02→14:32)
[2017-01-22] MEDS: LORazepam 0.5 MG TAB PO SCH ×2 (09:03→20:18)
[2017-01-22] MEDS: SENNOSIDES/DOCUSATE SODIUM TAB PO SCH (09:03)
[2017-01-22] MEDS: METOPROLOL TARTRATE 25 MG TAB PO SCH ×2 (09:06→20:17)
[2017-01-22] MEDS: PATCH REMOVAL 1 EA PATCH TD SCH ×2 (09:17→23:02)
[2017-01-22] MEDS: amLODIPine BESYLATE 5 MG TAB PO SCH (09:22)
--- NOTE | 2017-01-22 10:52 | SOAPPROG ---
SOAP Progress Note Assessment/Plan: Assessment: 46-year-old male who had a perioperative stroke after a three vessel coronary artery bypass graft and aortic root replacement with right-sided weakness and left-sided flaccid paralysis. Based on personal review of the MRI, he had multiple acute and subacute supratentorial infarcts more so on the right than on the left. 01/20/2017 Doing well in rehab, progressing and anxiety has not been a significant barrier. Episode of left-sided chest pain resolved last night, may be anxiety related or related to the massage as he noted. He has had complete resolution of all his symptoms. Continue to monitor, low threshold for ECG and other cardiac workup. Appreciate help from psychiatry, medications being tapered. Of note, he did not receive the evening dose of quetiapine. * Perioperative cerebrovascular accident on 12/26/16 with right-sided weakness and left-sided flaccid paralysis. Initial FIM 32 on 01/05/17; gain to 45 on 01/09, gain to 66 as of 01/15/17 Beginning to walk, 20' X 3 on 01/16/17. Transfers improving towards CGA. Has L neglect. Continue PT & OT to optimize mobility and activities of daily living. Fluoxetine was initiated at 10 mg daily for neuro recovery and was to be titrated to 20 mg today 01/05/17 but he did not tolerating it with increased anxiety +/- akathisia; D/C'd 01/05/17. * Cognitive impairment with deficit to memory, problem solving and initiation. Continue Speech and Language Pathology. * L shoulder pain/subluxation. Neuro sling per OT. Continue lidocaine patch , and oxycodone PRN. * Anemia, post-surgical, worse on blood draw 01/14/17. Reticulocyte count appropriately high; hemoccult stool negative X 2. * Anxiety/akathisia. D/C'd hydroxyzine 01/05/17 due to adverse effects of constipation and dry mouth. Appreciate the help of psychiatry. Much improved with scheduled low-dose quetiapine & lorazepam. Not using PRNs. Begin taper of medications 01/21/17: change scheduled lorazepam to 0.125 mg BID and quetiapine to 25 mg BID + 50 mg at HS.. * Insomnia. D/C zolpidem and melatonin as they have not worked. Mirtazapine 7.5 mg 01/02/17 is not helping. Improved with quetiapine but panic morning of . Quetiapine + lorazepam have been effective. * Constipation. Continue senna/docusate ordered from the hospital and Fleets enema and bisacodyl suppository are available as well. Added polyethylene glycol QD 01/03/17. Schedule bisacodyl suppository at 1730 to avoid bowel program during therapy times. * Pain management. Scheduled opiates discontinued 01/15/17; not using PRN oxycodone. Massage therapy consult re L shoulder. * Blood pressure. On metoprolol 6.125 mg BID, and amlodipine 2.5 mg QD to prevent radial artery vasospasm per CT Surgery. BP may be higher with less opiate. Chronic/stable conditions: * Cardiac function status post surgery. He has been fluid resuscitated as well as diuresed after his surgery. He will have daily weights. D/C fluid restriction 01/05/17. * Tachycardia AM of 01/09/17. Panic vs cardiac/infectious/metabolic. CXR improved, BMP wnl. EKG with T inversion v1 - v3 c/w ischemia. Troponin with indeterminate elevation at 0.133 in the morning, improved to 0.083 at 1500 draw. D/W EMILIA Leonard for Dr. Barragan, who also consulted with Dr. Camara, Cardiology. Likely subendocardial leak related to elevated rate. * Flank pain, feeling hot 01/14/17. No infectious etiology on UA & CBC. BMP wnl. * Status post coronary artery bypass graft. He appears to be healing well. Continue medications as ordered out of the hospital including aspirin, atorvastatin, metoprolol and amlodipine. * Radial artery graft. Continue amlodipine to prevent radial artery spasm in the left wrist. * Sternal precautions x4 weeks with no lifting greater than 10 pounds and avoiding pushing or pulling activities. * Wound care. Wounds may be left open to air, cleansed daily with soap and water and no creams or ointments to be used until scabs come off. * Cough without dyspnea. Chest x-ray 01/01/17 was improving. Continues to improve on CXR 01/03/17. Continue to monitor. * Postsurgical anemia. monitor FOLLOW UP: Seen by Dr. Barragan, cardiothoracic surgeon, 01/15/17 on Inpatient Rehabilitation. Follow up with precision lens polisher Dr. Gandhi and primary care provider, Dr. Raj Beard after discharge from inpatient rehabilitation. Tentative discharge of 02/13/17, depending on progress. 01/03/17 11:24 01/03/17 11:27 01/04/17 11:52 01/08/17 10:08 01/20/17 08:41 01/20/17 15:30 01/22/17 10:49 Subjective: CC: anxiety No acute events overnight. Patient did experience an episode of left-sided chest pain following the massage therapy. He notes that it resolved spontaneously, was associated with some shortness of breath, but also significant anxiety. He did not receive the evening dose of quetiapine. Otherwise, the patient notes that he is making great improvements in therapy, his is also at the side today, notes that he is doing very well. Discussed with them the reasonableness of travel after his discharge from inpatient rehabilitation. He denies any other new symptoms, no new numbness, tingling, or weakness. Objective: Vital Signs Temp Pulse Resp BP Pulse Ox 36.6 C 93 18 102/58 L 94 01/22/17 08:00 01/22/17 09:21 01/22/17 08:00 01/22/17 09:22 01/22/17 08:00 Laboratory Results 01/14/17 10:40 01/14/17 10:40 01/21/17 01/22/17 01/23/17 05:59 05:59 05:59 Intake Total 1440 1094 500 Output Total 700 500 Balance 740 594 500 Physical Exam - Physical Exam General Appearance: WD/WN, alert, no apparent distress Respiratory: No respiratory distress, No accessory muscle use Cardiac/Chest: normal peripheral pulses, regular rate, rhythm, No edema Skin: normal color, warm/dry, No cyanosis Neuro/Psych: alert, normal mood/affect ICD10 Worksheet Patient Problems: Problems Problem Status Onset Hemiparesis Acute S/P AVR Acute S/P CABG x 3 Acute S/P aortic aneurysm repair Acute Unstable angina pectoris Acute Aortic aneurysm Chronic Bicuspid aortic valve Chronic
[2017-01-22] MEDS: oxyCODONE IR 5 MG TAB PO PRN (20:16)
[2017-01-22] MEDS: MIRTAZAPINE 15 MG TAB PO SCH (20:17)
[2017-01-23] MEDS: ASPIRIN 81 MG CHEWABLE TAB PO SCH (08:24)
[2017-01-23] MEDS: SENNOSIDES/DOCUSATE SODIUM TAB PO SCH (08:24)
[2017-01-23] MEDS: METOPROLOL TARTRATE 25 MG TAB PO SCH ×2 (08:24→20:30)
[2017-01-23] MEDS: QUEtiapine FUMARATE 25 MG TAB PO SCH ×2 (08:25→14:05)
[2017-01-23] MEDS: ATORVASTATIN CALCIUM 20 MG TAB PO SCH (08:25)
[2017-01-23] MEDS: LIDOCAINE 5% 1 EA PATCH TD SCH (08:25)
[2017-01-23] MEDS: amLODIPine BESYLATE 5 MG TAB PO SCH (08:25)
[2017-01-23] MEDS: LORazepam 0.5 MG TAB PO SCH ×2 (08:26→20:32)
[2017-01-23] MEDS: ENOXAPARIN 40 MG/0.4 ML SYR SC SCH (08:26)
--- NOTE | 2017-01-23 12:48 | SOAPPROG ---
SOAP Progress Note Assessment/Plan: Assessment: 46-year-old male who had a perioperative stroke after a three vessel coronary artery bypass graft and aortic root replacement with right-sided weakness and left-sided flaccid paralysis. Multiple acute and subacute supratentorial infarcts more so on the right than on the left. * Perioperative cerebrovascular accident on 12/26/16 with right-sided weakness and left-sided flaccid paralysis. Initial FIM 32 on 01/05/17; gain to 45 on 01/09, gain to 66 as of 01/15/17, 75 ad of 01/22/17. Beginning to walk, 220' on with AFO & cane, 2 person min - mod A tactile and verbal cues. Transfers improving towards CGA. Dressing min A to SBA UB, cues LB. CGA for bathing, toileting. Has L neglect. Continue PT & OT to optimize mobility and activities of daily living. * Cognitive impairment with deficit to memory, problem solving and initiation. Continue Speech and Language Pathology. * L shoulder pain/subluxation. Neuro sling per OT. Continue lidocaine patch , and oxycodone PRN. * Anemia, post-surgical, worse on blood draw 01/14/17. Reticulocyte count appropriately high; hemoccult stool negative X 2. * Anxiety/akathisia. D/C'd hydroxyzine 01/05/17 due to adverse effects of constipation and dry mouth. Appreciate the help of psychiatry. Much improved with scheduled low-dose quetiapine & lorazepam. Not using PRNs. Begin taper of medications 01/21/17: change scheduled lorazepam to 0.125 mg BID and quetiapine to 25 mg BID + 50 mg at HS.. * Constipation. Continue senna/docusate [facility] from the hospital and [facility] and bisacodyl suppository are available as well. Added polyethylene glycol QD 01/03/17. Schedule bisacodyl suppository at 1730 to avoid bowel program during therapy times. * Blood pressure. On metoprolol 6.25 mg BID, and amlodipine 2.5 mg QD to prevent radial artery vasospasm per CT Surgery. * Chronic/stable conditions: * Cardiac function status post surgery. He has been fluid resuscitated as well as diuresed after his surgery. He will have daily weights. D/C fluid restriction 01/05/17. * Tachycardia AM of 01/09/17. Panic vs cardiac/infectious/metabolic. CXR improved, BMP wnl. EKG with T inversion v1 - v3 c/w ischemia. Troponin with indeterminate elevation at 0.133 in the morning, improved to 0.083 at 1500 draw. D/W EMILIA Leonard for Dr. Barragan, who also consulted with Dr. Camara, Cardiology. Likely subendocardial leak related to elevated rate. * Flank pain, feeling hot 01/14/17. No infectious etiology on UA & CBC. BMP wnl. * Status post coronary artery bypass graft. He appears to be healing well. Continue medications as ordered out of the hospital including aspirin, atorvastatin, metoprolol and amlodipine. * Radial artery graft. Continue amlodipine to prevent radial artery spasm in the left wrist. * Sternal precautions x4 weeks with no lifting greater than 10 pounds and avoiding pushing or pulling activities. * Wound care. Wounds may be left open to air, cleansed daily with soap and water and no creams or ointments to be used until scabs come off. * Cough without dyspnea. Chest x-ray 01/01/17 was improving. Continues to improve on CXR 01/03/17. Continue to monitor. * Postsurgical anemia. We will repeat a CBC in the morning to ensure stability. * Fluoxetine was initiated at 10 mg daily for neuro recovery and was to be titrated to 20 mg today 01/05/17 but he did not tolerating it with increased anxiety +/- akathisia; D/C'd 01/05/17. * Insomnia. D/C zolpidem and melatonin as they have not worked. Mirtazapine 7.5 mg 01/02/17 is not helping. Improved with quetiapine but panic morning of . Quetiapine + lorazepam have been effective. FOLLOW UP: Seen by Dr. Barragan, cardiothoracic surgeon, 01/15/17 on Inpatient Rehabilitation. Follow up with ornamental plaster sticker Dr. Gandhi and primary care provider, Dr. Raj Beard after discharge from inpatient rehabilitation. Tentative discharge of 02/13/17, depending on progress. Will need to be able to negotiate stairs. 01/23/17 12:38 Subjective: Reports a panic attack yesterday when he was unable to get family members on the phone in the evening. O/W w/out complaint. No pain, [id number], cough, f/c. Walking longer distances. Objective: Vital Signs Temp Pulse Resp BP Pulse Ox 36.6 C 93 18 97/57 L 96 01/23/17 08:00 01/23/17 08:24 01/23/17 08:00 01/23/17 08:25 01/23/17 08:00 Laboratory Results 01/14/17 10:40 01/14/17 10:40 01/22/17 01/23/17 01/24/17 05:59 05:59 05:59 Intake Total 1094 1176 500 Output Total 500 1200 Balance 594 1176 -700 Physical Exam - Physical Exam General Appearance: WD/WN, alert, no apparent distress Respiratory: No respiratory distress, No accessory muscle use Cardiac/Chest: No edema Skin: normal color, warm/dry Neuro/Psych: alert, normal mood/affect, oriented x 3, motor weakness (LUE & LLE) ICD10 Worksheet Patient Problems: Problems Problem Status Onset Hemiparesis Acute S/P AVR Acute S/P CABG x 3 Acute S/P aortic aneurysm repair Acute Unstable angina pectoris Acute Aortic aneurysm Chronic Bicuspid aortic valve Chronic
[2017-01-23] MEDS: oxyCODONE IR 5 MG TAB PO PRN (20:31)
[2017-01-23] MEDS: QUEtiapine FUMARATE 50 MG TAB PO SCH (20:31)
[2017-01-23] MEDS: PATCH REMOVAL 1 EA PATCH TD SCH (20:33)
[2017-01-23] MEDS: MIRTAZAPINE 15 MG TAB PO SCH (20:33)
[2017-01-24] MEDS: SENNOSIDES/DOCUSATE SODIUM TAB PO SCH (08:07)
[2017-01-24] MEDS: ASPIRIN 81 MG CHEWABLE TAB PO SCH (08:07)
[2017-01-24] MEDS: METOPROLOL TARTRATE 25 MG TAB PO SCH ×2 (08:08→20:28)
[2017-01-24] MEDS: ATORVASTATIN CALCIUM 20 MG TAB PO SCH (08:08)
[2017-01-24] MEDS: amLODIPine BESYLATE 5 MG TAB PO SCH (08:08)
[2017-01-24] MEDS: QUEtiapine FUMARATE 25 MG TAB PO SCH ×2 (08:08→13:49)
[2017-01-24] MEDS: LORazepam 0.5 MG TAB PO SCH ×2 (08:08→20:27)
[2017-01-24] MEDS: ENOXAPARIN 40 MG/0.4 ML SYR SC SCH (08:09)
[2017-01-24] MEDS: LIDOCAINE 5% 1 EA PATCH TD SCH (08:09)
--- NOTE | 2017-01-24 12:31 | SOAPPROG ---
SOAP Progress Note Assessment/Plan: Assessment: 46-year-old male w/ perioperative stroke after three vessel coronary artery bypass graft and aortic root replacement with right-sided weakness and left- sided flaccid paralysis. Multiple acute and subacute supratentorial infarcts, right > left. * Perioperative cerebrovascular accident on 12/26/16 with right-sided weakness and left-sided flaccid paralysis. Initial FIM 32 on 01/05/17; gain to 45 on 01/09, gain to 66 as of 01/15/17, 75 ad of 01/22/17. Beginning to walk, 220' on with AFO & cane, 2 person min - mod A tactile and verbal cues. Transfers improving towards CGA. Dressing min A to SBA UB, cues LB. CGA for bathing, toileting. Has L neglect. Continue PT & OT to optimize mobility and activities of daily living. * Cognitive impairment with deficit to memory, problem solving and initiation. Continue Speech and Language Pathology. * L shoulder pain/subluxation. Neuro sling per OT. Continue lidocaine patch , and oxycodone PRN. * Anemia, post-surgical, worse on blood draw 01/14/17. Reticulocyte count appropriately high; hemoccult stool negative X 2. * Anxiety/akathisia. D/C'd hydroxyzine 01/05/17 due to adverse effects of constipation and dry mouth. Appreciate the help of psychiatry. Much improved with scheduled low-dose quetiapine & lorazepam. Not using PRNs. Begin taper of medications 01/21/17: change scheduled lorazepam to 0.125 mg BID and quetiapine to 25 mg BID + 50 mg at HS.. * Constipation. Continue senna/docusate ordered from the hospital and Fleets enema and bisacodyl suppository are available as well. Added polyethylene glycol QD 01/03/17. Schedule bisacodyl suppository at 1730 to avoid bowel program during therapy times. * Blood pressure. On metoprolol 6.25 mg BID, and amlodipine 2.5 mg QD to prevent radial artery vasospasm per CT Surgery. * Chronic/stable conditions: * Cardiac function status post surgery. He has been fluid resuscitated as well as diuresed after his surgery. He will have daily weights. D/C fluid restriction 01/05/17. * Tachycardia AM of 01/09/17. Panic vs cardiac/infectious/metabolic. CXR improved, BMP wnl. EKG with T inversion v1 - v3 c/w ischemia. Troponin with indeterminate elevation at 0.133 in the morning, improved to 0.083 at 1500 draw. D/W EMILIA Leonard for Dr. Barragan, who also consulted with Dr. Camara, Cardiology. Likely subendocardial leak related to elevated rate. * Flank pain, feeling hot 01/14/17. No infectious etiology on UA & CBC. BMP wnl. * Status post coronary artery bypass graft. He appears to be healing well. Continue medications as ordered out of the hospital including aspirin, atorvastatin, metoprolol and amlodipine. * Radial artery graft. Continue amlodipine to prevent radial artery spasm in the left wrist. * Sternal precautions x4 weeks with no lifting greater than 10 pounds and avoiding pushing or pulling activities. * Wound care. Wounds may be left open to air, cleansed daily with soap and water and no creams or ointments to be used until scabs come off. * Cough without dyspnea. Chest x-ray 01/01/17 was improving. Continues to improve on CXR 01/03/17. Continue to monitor. * Postsurgical anemia. We will repeat a CBC in the morning to ensure stability. * Fluoxetine was initiated at 10 mg daily for neuro recovery, but he did not tolerating it with increased anxiety +/- akathisia; D/C'd 01/05/17. * Insomnia. D/C zolpidem and melatonin as they have not worked. Mirtazapine 7.5 mg 01/02/17 is not helping. Improved with quetiapine but panic morning of . Quetiapine + lorazepam have been effective. FOLLOW UP: Seen by Dr. Barragan, cardiothoracic surgeon, 01/15/17 on Inpatient Rehabilitation. Follow up with electromechanical equipment tester Dr. Gandhi and primary care provider, Dr. Raj Beard after discharge from inpatient rehabilitation. Tentative discharge of 02/13/17, depending on progress. Will need to be able to negotiate stairs. Plan: Cont Dr Brown rehab treatment plan 01/24/17 12:27 Subjective: No new problems or C/O's No F/C/CP/SOB/N/V/D/C Shoulder pain well managed No c/o acute anxiety Objective: Vital Signs Temp Pulse Resp BP Pulse Ox 36.8 C 88 17 90/60 L 94 01/24/17 08:00 01/24/17 08:08 01/24/17 08:00 01/24/17 08:08 01/23/17 20:00 Laboratory Results 01/14/17 10:40 01/14/17 10:40 01/23/17 01/24/17 01/25/17 05:59 05:59 05:59 Intake Total 1176 1600 480 Output Total 1950 Balance 1176 -350 480 Physical Exam - Physical Exam General Appearance: alert, no apparent distress Neck: supple Respiratory: lungs clear Cardiac/Chest: regular rate, rhythm Skin: normal color, warm/dry, other (incision L forarm healing) Extremities: No normal range of motion (L shoulder in neuro sling. ), No pedal edema Neuro/Psych: alert, normal mood/affect, oriented x 3, abnormal gait, motor weakness, sensory deficit, other (no acute changes) ICD10 Worksheet Patient Problems: Problems Problem Status Onset Hemiparesis Acute S/P AVR Acute S/P CABG x 3 Acute S/P aortic aneurysm repair Acute Unstable angina pectoris Acute Aortic aneurysm Chronic Bicuspid aortic valve Chronic
[2017-01-24] MEDS: QUEtiapine FUMARATE 50 MG TAB PO SCH (20:27)
[2017-01-24] MEDS: MIRTAZAPINE 15 MG TAB PO SCH (20:27)
[2017-01-25] MEDS: POLYETHYLENE GLYCOL 3350 17 GM PKT PO PRN (06:24)
[2017-01-25] MEDS: PATCH REMOVAL 1 EA PATCH TD SCH ×2 (06:27→20:26)
[2017-01-25] MEDS: LIDOCAINE 5% 1 EA PATCH TD SCH (07:59)
[2017-01-25] MEDS: ATORVASTATIN CALCIUM 20 MG TAB PO SCH (08:46)
[2017-01-25] MEDS: amLODIPine BESYLATE 5 MG TAB PO SCH (08:46)
[2017-01-25] MEDS: METOPROLOL TARTRATE 25 MG TAB PO SCH ×2 (08:46→20:04)
[2017-01-25] MEDS: ASPIRIN 81 MG CHEWABLE TAB PO SCH (08:47)
[2017-01-25] MEDS: SENNOSIDES/DOCUSATE SODIUM TAB PO SCH (08:47)
[2017-01-25] MEDS: LORazepam 0.5 MG TAB PO SCH ×2 (08:47→20:04)
[2017-01-25] MEDS: QUEtiapine FUMARATE 25 MG TAB PO SCH ×2 (08:47→13:12)
[2017-01-25] MEDS: ENOXAPARIN 40 MG/0.4 ML SYR SC SCH (08:47)
--- NOTE | 2017-01-25 15:20 | SOAPPROG ---
SOAP Progress Note Assessment/Plan: Assessment: 46-year-old male w/ perioperative stroke after three vessel coronary artery bypass graft and aortic root replacement with right-sided weakness and left- sided flaccid paralysis. Multiple acute and subacute supratentorial infarcts, right > left. * Perioperative cerebrovascular accident on 12/26/16 with L/R paralysis/paresis. Initial FIM 32 on 01/05/17; gain to 45 on 01/09/17, gain to 66 as of 01/15/17, 75 ad of 01/22/17. Beginning to walk, 220' on 01/22/17 with AFO & cane, 2 person min - mod A tactile and verbal cues. Transfers improving towards CGA. Dressing min A to SBA UB, cues LB. CGA for bathing, toileting. Has L neglect. Continue PT & OT to optimize mobility and activities of daily living. * Cognitive impairment with deficit to memory, problem solving and initiation. Continue Speech and Language Pathology. * L shoulder pain/subluxation. Neuro sling per OT. Continue lidocaine patch , and oxycodone PRN. * Anemia, post-surgical, worse on blood draw 01/14/17. Reticulocyte count appropriately high; hemoccult stool negative X 2. * Anxiety/akathisia. D/C'd hydroxyzine 01/05/17 due to adverse effects of constipation and dry mouth. Appreciate the help of psychiatry. Much improved with scheduled low-dose quetiapine & lorazepam. Not using PRNs. Begin taper of medications 01/21/17: change scheduled lorazepam to 0.125 mg BID and quetiapine to 25 mg BID + 50 mg at HS.. * Constipation. Continue senna/docusate ordered from the hospital and Fleets enema and bisacodyl suppository are available as well. Added polyethylene glycol QD 01/03/17. Schedule bisacodyl suppository at 1730 to avoid bowel program during therapy times. * Blood pressure. On metoprolol 6.25 mg BID, and amlodipine 2.5 mg QD to prevent radial artery vasospasm per CT Surgery. * Chronic/stable conditions: * Cardiac function status post surgery. He has been fluid resuscitated as well as diuresed after his surgery. He will have daily weights. D/C fluid restriction 01/05/17. * Tachycardia AM of 01/09/17. Panic vs cardiac/infectious/metabolic. CXR improved, BMP wnl. EKG with T inversion v1 - v3 c/w ischemia. Troponin with indeterminate elevation at 0.133 in the morning, improved to 0.083 at 1500 draw. D/W EMILIA Leonard for Dr. Barragan, who also consulted with Dr. Camara, Cardiology. Likely subendocardial leak related to elevated rate. * Flank pain, feeling hot 01/14/17. No infectious etiology on UA & CBC. BMP wnl. * Status post coronary artery bypass graft. He appears to be healing well. Continue medications as ordered out of the hospital including aspirin, atorvastatin, metoprolol and amlodipine. * Radial artery graft. Continue amlodipine to prevent radial artery spasm in the left wrist. * Sternal precautions x4 weeks with no lifting greater than 10 pounds and avoiding pushing or pulling activities. * Wound care. Wounds may be left open to air, cleansed daily with soap and water and no creams or ointments to be used until scabs come off. * Cough without dyspnea. Chest x-ray 01/01/17 was improving. Continues to improve on CXR 01/03/17. Continue to monitor. * Postsurgical anemia. We will repeat a CBC in the morning to ensure stability. * Fluoxetine was initiated at 10 mg daily for neuro recovery, but he did not tolerating it with increased anxiety +/- akathisia; D/C'd 01/05/17. * Insomnia. D/C zolpidem and melatonin as they have not worked. Mirtazapine 7.5 mg 01/02/17 is not helping. Improved with quetiapine but panic morning of . Quetiapine + lorazepam have been effective. FOLLOW UP: Seen by Dr. Barragan, cardiothoracic surgeon, 01/15/17 on Inpatient Rehabilitation. Follow up with precision inspector Dr. Gandhi and primary care provider, Dr. Raj Beard after discharge from inpatient rehabilitation. Tentative discharge of 02/13/17, depending on progress. Will need to be able to negotiate stairs. Plan: Cont Dr Brown rehab treatment plan. 01/25/17 15:17 Subjective: In good spirits Slept well No pain issues No F/C/CP/SOB/N/V/D Objective: Vital Signs Temp Pulse Resp BP Pulse Ox 37.0 C 89 16 98/69 L 97 01/25/17 06:48 01/25/17 08:46 01/25/17 06:48 01/25/17 08:46 01/25/17 06:48 Laboratory Results 01/14/17 10:40 01/14/17 10:40 01/24/17 01/25/17 01/26/17 05:59 05:59 05:59 Intake Total 1600 1900 540 Output Total 1950 600 250 Balance -350 1300 290 Physical Exam - Physical Exam General Appearance: alert, no apparent distress Neck: supple Respiratory: lungs clear Cardiac/Chest: regular rate, rhythm Skin: normal color, warm/dry, other (insicions CD&I) Extremities: No pedal edema, No calf tenderness Neuro/Psych: alert, normal mood/affect, oriented x 3, abnormal gait (improving) , motor weakness, sensory deficit, other (no acute changes) ICD10 Worksheet Patient Problems: Problems Problem Status Onset Hemiparesis Acute S/P AVR Acute S/P CABG x 3 Acute S/P aortic aneurysm repair Acute Unstable angina pectoris Acute Aortic aneurysm Chronic Bicuspid aortic valve Chronic
[2017-01-25] MEDS: QUEtiapine FUMARATE 50 MG TAB PO SCH (20:04)
[2017-01-25] MEDS: MIRTAZAPINE 15 MG TAB PO SCH (20:06)
[2017-01-25] MEDS: oxyCODONE IR 5 MG TAB PO PRN (23:07)
[2017-01-26] MEDS: METOPROLOL TARTRATE 25 MG TAB PO SCH ×2 (08:24→20:51)
[2017-01-26] MEDS: ASPIRIN 81 MG CHEWABLE TAB PO SCH (08:28)
[2017-01-26] MEDS: SENNOSIDES/DOCUSATE SODIUM TAB PO SCH (08:28)
[2017-01-26] MEDS: ATORVASTATIN CALCIUM 20 MG TAB PO SCH (08:29)
[2017-01-26] MEDS: amLODIPine BESYLATE 5 MG TAB PO SCH (08:29)
[2017-01-26] MEDS: QUEtiapine FUMARATE 25 MG TAB PO SCH ×2 (08:29→13:09)
[2017-01-26] MEDS: LORazepam 0.5 MG TAB PO SCH ×2 (08:30→20:53)
[2017-01-26] MEDS: LIDOCAINE 5% 1 EA PATCH TD SCH (08:31)
[2017-01-26] MEDS: ENOXAPARIN 40 MG/0.4 ML SYR SC SCH (08:31)
--- NOTE | 2017-01-26 12:40 | SOAPPROG ---
SOAP Progress Note Assessment/Plan: Assessment: 46-year-old male who had a perioperative stroke after a three vessel coronary artery bypass graft and aortic root replacement with right-sided weakness and left-sided flaccid paralysis. Multiple acute and subacute supratentorial infarcts more so on the right than on the left. * Perioperative cerebrovascular accident on 12/26/16 with right-sided weakness and left-sided flaccid paralysis. Initial FIM 32 on 01/05/17; gain to 45 on 01/09, gain to 66 as of 01/15/17, 75 ad of 01/22/17. Beginning to walk, 220' on with AFO & cane, 2 person min - mod A tactile and verbal cues. Transfers improving towards CGA. Dressing min A to SBA UB, cues LB. CGA for bathing, toileting. Has L neglect. Continue PT & OT to optimize mobility and activities of daily living. * Cognitive impairment with deficit to memory, problem solving and initiation. Continue Speech and Language Pathology. * L shoulder pain/subluxation. Neuro sling per OT. Continue lidocaine patch , and oxycodone PRN. * Anemia, post-surgical, worse on blood draw 01/14/17. Reticulocyte count appropriately high; hemoccult stool negative X 2. * Anxiety/akathisia. D/C'd hydroxyzine 01/05/17 due to adverse effects of constipation and dry mouth. Appreciate the help of psychiatry. Much improved with scheduled low-dose quetiapine & lorazepam. Not using PRNs. Begin taper of medications 01/21/17: change scheduled lorazepam to 0.125 mg BID and quetiapine to 25 mg BID + 50 mg at HS.. * Constipation. Continue senna/docusate ordered from the hospital and [facility] and bisacodyl suppository are available as well. Added polyethylene glycol QD 01/03/17. Schedule bisacodyl suppository at 1730 to avoid bowel program during therapy times. * Blood pressure. On metoprolol 6.25 mg BID, and amlodipine 2.5 mg QD to prevent radial artery vasospasm per CT Surgery. * Chronic/stable conditions: * Cardiac function status post surgery. He has been fluid resuscitated as well as diuresed after his surgery. He will have daily weights. D/C fluid restriction 01/05/17. * Tachycardia AM of 01/09/17. Panic vs cardiac/infectious/metabolic. CXR improved, BMP wnl. EKG with T inversion v1 - v3 c/w ischemia. Troponin with indeterminate elevation at 0.133 in the morning, improved to 0.083 at 1500 draw. D/W EMILIA Leonard for Dr. Barragan, who also consulted with Dr. Camara, Cardiology. Likely subendocardial leak related to elevated rate. * Flank pain, feeling hot 01/14/17. No infectious etiology on UA & CBC. BMP wnl. * Status post coronary artery bypass graft. He appears to be healing well. * Radial artery graft. Continue amlodipine to prevent radial artery spasm in the left wrist. * Sternal precautions x4 weeks (through 01/22/17) with no lifting greater than 10 pounds and avoiding pushing or pulling activities. * Wound care. Wounds may be left open to air, cleansed daily with soap and water and no creams or ointments to be used until scabs come off. * Cough without dyspnea. Chest x-ray 01/01/17 was improving. Continues to improve on CXR 01/03/17. Continue to monitor. * Postsurgical anemia. We will repeat a CBC in the morning to ensure stability. * Fluoxetine was initiated at 10 mg daily for neuro recovery and was to be titrated to 20 mg today 01/05/17 but he did not tolerating it with increased anxiety +/- akathisia; D/C'd 01/05/17. * Insomnia. D/C zolpidem and melatonin as they have not worked. Mirtazapine 7.5 mg 01/02/17 is not helping. Improved with quetiapine but panic morning of . Quetiapine + lorazepam have been effective. FOLLOW UP: Seen by Dr. Barragan, cardiothoracic surgeon, 01/15/17 on Inpatient Rehabilitation. Follow up with hide mill man Dr. Gandhi and primary care provider, Dr. Raj Beard after discharge from inpatient rehabilitation. Tentative discharge of 02/13/17, depending on progress. Will need to be able to negotiate stairs. 01/26/17 12:37 Subjective: No complaints. In good spirits. Reports increasing return of RUE movement. Objective: Vital Signs Temp Pulse Resp BP Pulse Ox 36.9 C 100 14 90/65 L 92 01/26/17 07:24 01/26/17 08:24 01/26/17 07:24 01/26/17 08:29 01/26/17 07:24 Laboratory Results 01/14/17 10:40 01/14/17 10:40 01/25/17 01/26/17 01/27/17 05:59 05:59 05:59 Intake Total 1900 1180 436 Output Total 600 250 Balance 1300 930 436 Physical Exam - Physical Exam General Appearance: WD/WN, alert, no apparent distress Respiratory: No respiratory distress, No accessory muscle use Cardiac/Chest: No edema Skin: normal color, warm/dry Neuro/Psych: alert, normal mood/affect, oriented x 3, motor weakness (RUE with movement at scaplua, elbow, wrist and fingers, though not yet functional.) ICD10 Worksheet Patient Problems: Problems Problem Status Onset Hemiparesis Acute S/P AVR Acute S/P CABG x 3 Acute S/P aortic aneurysm repair Acute Unstable angina pectoris Acute Aortic aneurysm Chronic Bicuspid aortic valve Chronic
[2017-01-26] MEDS: oxyCODONE IR 5 MG TAB PO PRN (20:42)
[2017-01-26] MEDS: MIRTAZAPINE 15 MG TAB PO SCH (20:43)
[2017-01-26] MEDS: QUEtiapine FUMARATE 50 MG TAB PO SCH (20:43)
[2017-01-26] MEDS: PATCH REMOVAL 1 EA PATCH TD SCH (20:52)
[2017-01-27] MEDS: LORazepam 0.5 MG TAB PO SCH ×2 (08:44→20:46)
[2017-01-27] MEDS: ATORVASTATIN CALCIUM 20 MG TAB PO SCH (08:44)
[2017-01-27] MEDS: QUEtiapine FUMARATE 25 MG TAB PO SCH ×2 (08:45→14:14)
[2017-01-27] MEDS: METOPROLOL TARTRATE 25 MG TAB PO SCH ×2 (08:46→20:43)
[2017-01-27] MEDS: ASPIRIN 81 MG CHEWABLE TAB PO SCH (08:46)
[2017-01-27] MEDS: amLODIPine BESYLATE 5 MG TAB PO SCH (08:47)
[2017-01-27] MEDS: SENNOSIDES/DOCUSATE SODIUM TAB PO SCH (08:51)
[2017-01-27] MEDS: ENOXAPARIN 40 MG/0.4 ML SYR SC SCH (09:20)
[2017-01-27] MEDS: LIDOCAINE 5% 1 EA PATCH TD SCH (09:21)
[2017-01-27] MEDS: POLYETHYLENE GLYCOL 3350 17 GM PKT PO PRN (09:31)
[2017-01-27] MEDS ORDERED: oxyCODONE IR 5 MG TAB PO PRN (10:59)
--- NOTE | 2017-01-27 12:29 | SOAPPROG ---
SOAP Progress Note Assessment/Plan: Assessment: 46-year-old male who had a perioperative stroke after a three vessel coronary artery bypass graft and aortic root replacement with right-sided weakness and left-sided flaccid paralysis. Multiple acute and subacute supratentorial infarcts more so on the right than on the left. * Perioperative cerebrovascular accident on 12/26/16 with right-sided weakness and left-sided flaccid paralysis. Initial FIM 32 on 01/05/17; gain to 45 on 01/09, gain to 66 as of 01/15/17, 75 ad of 01/22/17. Beginning to walk, 220' on with AFO & cane, 2 person min - mod A tactile and verbal cues. Transfers improving towards CGA. Dressing min A to SBA UB, cues LB. CGA for bathing, toileting. Has L neglect. Continue PT & OT to optimize mobility and activities of daily living. * Cognitive impairment with deficit to memory, problem solving and initiation. Continue Speech and Language Pathology. * Tachycardia, unclear etiology. EKG, CBC, BMP w/out significant abnormality. TSH slightly suppressed but T4 & free T# wnl. D-dimer elevated. Chest CT tomorrow. Increased enoxaparin to treatment dose. * L shoulder pain/subluxation. Neuro sling per OT. Continue lido.zuleika patch , and oxycodone PRN. Improving. * Anemia, post-surgical, worse on blood draw 01/14/17. Reticulocyte count appropriately high; hemoccult stool negative X 3. Recheck 01/27/17. * Anxiety/akathisia. D/C'd hydroxyzine 01/05/17 due to adverse effects of constipation and dry mouth. Appreciate the help of psychiatry. Much improved with scheduled low-dose quetiapine & lorazepam. Not using PRNs. Begin taper of medications 01/21/17: change scheduled lorazepam to 0.125 mg BID and quetiapine to 25 mg BID + 50 mg at HS.. * Constipation. Continue senna/docusate ordered from the hospital and Fleets enema and bisacodyl suppository are available as well. Added polyethylene glycol QD 01/03/17. Schedule bisacodyl suppository at 1730 to avoid bowel program during therapy times. * Blood pressure. On metoprolol 6.25 mg BID, and amlodipine 2.5 mg QD to prevent radial artery vasospasm per CT Surgery. * Chronic/stable conditions: * Cardiac function status post surgery. He has been fluid resuscitated as well as diuresed after his surgery. He will have daily weights. D/C fluid restriction 01/05/17. * Tachycardia AM of 01/09/17. Panic vs cardiac/infectious/metabolic. CXR improved, BMP wnl. EKG with T inversion v1 - v3 c/w ischemia. Troponin with indeterminate elevation at 0.133 in the morning, improved to 0.083 at 1500 draw. D/W EMILIA Leonard for Dr. Barragan, who also consulted with Dr. Camara, Cardiology. Likely subendocardial leak related to elevated rate. * Flank pain, feeling hot 01/14/17. No infectious etiology on UA & CBC. BMP wnl. * Status post coronary artery bypass graft. He appears to be healing well. * Radial artery graft. Continue amlodipine to prevent radial artery spasm in the left wrist. * Sternal precautions x4 weeks (through 01/22/17) with no lifting greater than 10 pounds and avoiding pushing or pulling activities. * Wound care. Wounds may be left open to air, cleansed daily with soap and water and no creams or ointments to be used until scabs come off. * Cough without dyspnea. Chest x-ray 01/01/17 was improving. Continues to improve on CXR 01/03/17. Continue to monitor. * Postsurgical anemia. We will repeat a CBC in the morning to ensure stability. * Fluoxetine was initiated at 10 mg daily for neuro recovery and was to be titrated to 20 mg today 01/05/17 but he did not tolerating it with increased anxiety +/- akathisia; D/C'd 01/05/17. * Insomnia. D/C zolpidem and melatonin as they have not worked. Mirtazapine 7.5 mg 01/02/17 is not helping. Improved with quetiapine but panic morning of . Quetiapine + lorazepam have been effective. FOLLOW UP: Seen by Dr. Barragan, cardiothoracic surgeon, 01/15/17 on Inpatient Rehabilitation. Follow up with pullman clerk Dr. Gandhi and primary care provider, Dr. Raj Beard after discharge from inpatient rehabilitation. Tentative discharge of 02/13/17, depending on progress. Will need to be able to negotiate stairs. 01/27/17 12:29 01/28/17 10:02 Subjective: No complaints. Asked re tachycardia; reports that he feels his heart beating more than he did prior to surgery, but no palpitations of lightheadedness. No f /c. cough/dyspnea. Shoulder pain improving as motor returns to LUE. Objective: Vital Signs Temp Pulse Resp BP Pulse Ox 36.4 C 105 H 18 99/63 L 96 01/27/17 08:00 01/27/17 08:46 01/27/17 08:00 01/27/17 08:47 01/27/17 08:00 Laboratory Results 01/14/17 10:40 01/14/17 10:40 01/26/17 01/27/17 01/28/17 05:59 05:59 05:59 Intake Total 1180 1054 336 Output Total 250 750 600 Balance 930 304 -264 Physical Exam - Physical Exam General Appearance: WD/WN, alert, no apparent distress Respiratory: normal breath sounds, No crackles, No rhonchi, No wheezing Cardiac/Chest: regular rate, rhythm, No edema, No JVD Skin: normal color, warm/dry Neuro/Psych: alert, normal mood/affect, oriented x 3 ICD10 Worksheet Patient Problems: Problems Problem Status Onset Hemiparesis Acute S/P AVR Acute S/P CABG x 3 Acute S/P aortic aneurysm repair Acute Unstable angina pectoris Acute Aortic aneurysm Chronic Bicuspid aortic valve Chronic
[2017-01-27 13:38] LABS: % IMMATURE GRANULYOCYTES 0.5 % (0.0-1.1); ABSOLUTE IMMATURE GRANULOCYTES 0.04 10^3/uL (0.00-0.10); ADD DIFF? NO; ADD MORPH? NO; ADD SCAN? NO; ATYPICAL LYMPHOCYTE FLAG 20 (0-99); FRAGMENT RBC FLAG 0 (0-99); HEMATOCRIT 41.1 % (40.0-51.0); HEMOGLOBIN 13.4 g/dL (13.7-17.5); LEFT SHIFT FLG 0 (0-99); LIPEMIA HEMOLYSIS FLAG 80 (0-99); MEAN CELL HEMOGLOBIN 28.8 pg (27.9-34.1); MEAN CELL HEMOGLOBIN CONCENTR. 32.6 g/dL (32.4-36.7); MEAN CELL VOLUME 88.4 fL (81.5-99.8); MEAN PLATELET VOLUME 9.9 fL (8.7-11.7); PLATELET CLUMPS FLAG 0 (0-99); PLATELET COUNT 309 10^3/uL (150-400); RED BLOOD CELL COUNT 4.65 10^6/uL (4.40-6.38)
[2017-01-27 14:39] LABS: ANION GAP 13 mEq/L (8-16); CARBON DIOXIDE 26 mEq/l (22-31); CHLORIDE 100 mEq/L (97-110); GLOMERULAR FILTRATION RATE > 60; GLUCOSE 109 mg/dL (70-100); POTASSIUM 4.8 mEq/L (3.5-5.2); SODIUM 139 mEq/L (134-144)
--- NOTE | 2017-01-27 16:13 | CPEKG ---
Heart Rate: 102 RR Interval: 588 P-R Interval: 204 QRSD Interval: 106 QT Interval: 348 QTC Interval: 454 P [place]: 78 QRS [place]: 62 T Wave [place]: 64 EKG Severity - ABNORMAL ECG - EKG Impression: SINUS TACHYCARDIA Electronically Signed By: Niraj Martínez 28-Jan-2017 16:50:22
[2017-01-27] MEDS: QUEtiapine FUMARATE 50 MG TAB PO SCH (20:45)
[2017-01-27] MEDS: MIRTAZAPINE 15 MG TAB PO SCH (20:46)
[2017-01-27] MEDS: PATCH REMOVAL 1 EA PATCH TD SCH (21:02)
[2017-01-28] MEDS: ENOXAPARIN 80 MG/0.8 ML SYR SC SCH ×3 (00:19→20:28)
[2017-01-28] MEDS: LORazepam 0.5 MG TAB PO SCH ×2 (09:00→20:29)
[2017-01-28] MEDS: amLODIPine BESYLATE 5 MG TAB PO SCH (09:40)
[2017-01-28] MEDS: ATORVASTATIN CALCIUM 20 MG TAB PO SCH (09:41)
[2017-01-28] MEDS: ASPIRIN 81 MG CHEWABLE TAB PO SCH (09:41)
[2017-01-28] MEDS: LIDOCAINE 5% 1 EA PATCH TD SCH (09:42)
[2017-01-28] MEDS: METOPROLOL TARTRATE 25 MG TAB PO SCH ×2 (09:43→20:28)
[2017-01-28] MEDS: SENNOSIDES/DOCUSATE SODIUM TAB PO SCH (09:44)
[2017-01-28] MEDS: QUEtiapine FUMARATE 25 MG TAB PO SCH ×2 (09:44→13:55)
--- NOTE | 2017-01-28 10:07 | SOAPPROG ---
SOAP Progress Note Assessment/Plan: Assessment: 46-year-old male who had a perioperative stroke after a three vessel coronary artery bypass graft and aortic root replacement with right-sided weakness and left-sided flaccid paralysis. Multiple acute and subacute supratentorial infarcts more so on the right than on the left. * Perioperative cerebrovascular accident on 12/26/16 with right-sided weakness and left-sided flaccid paralysis. Initial FIM 32 on 01/05/17; gain to 45 on 01/09, gain to 66 as of 01/15/17, 75 ad of 01/22/17. Beginning to walk, 220' on with AFO & cane, 2 person min - mod A tactile and verbal cues. Transfers improving towards CGA. Dressing min A to SBA UB, cues LB. CGA for bathing, toileting. Has L neglect. Continue PT & OT to optimize mobility and activities of daily living. * Cognitive impairment with deficit to memory, problem solving and initiation. Continue Speech and Language Pathology. * Tachycardia, unclear etiology. Labs and studies from 01/27/17: EKG, CBC, BMP w /out significant abnormality. TSH slightly suppressed but T4 & free T3 wnl. D- dimer elevated. Chest CT today 01/28/17 without pulmonary embolus. Increased enoxaparin to treatment dose 01/27/17 evening; resume prophylactic dose. * Subclinical hyperthyroidism. Recheck TSH in approximately 6 weeks, 03/11/17. * L shoulder pain/subluxation. Neuro sling per OT. Continue lidocaine patch , and oxycodone PRN. Improving. * Anemia, post-surgical, worse on blood draw 01/14/17. Reticulocyte count appropriately high; hemoccult stool negative X 3. Improved 01/27/17. * Anxiety/akathisia. D/C'd hydroxyzine 01/05/17 due to adverse effects of constipation and dry mouth. Appreciate the help of psychiatry. Much improved with scheduled low-dose quetiapine & lorazepam. Not using PRNs. Begin taper of medications 01/21/17: change scheduled lorazepam to 0.125 mg BID and quetiapine to 25 mg BID + 50 mg at HS.. * Constipation. Continue senna/docusate ordered from the hospital and Fleets enema and bisacodyl suppository are available as well. Added polyethylene glycol QD 01/03/17. Schedule bisacodyl suppository at 1730 to avoid bowel program during therapy times. * Blood pressure. On metoprolol 6.25 mg BID, and amlodipine 2.5 mg QD to prevent radial artery vasospasm per CT Surgery. Chronic/stable conditions: * Cardiac function status post surgery. He has been fluid resuscitated as well as diuresed after his surgery. He will have daily weights. D/C fluid restriction 01/05/17. * Tachycardia AM of 01/09/17. Panic vs cardiac/infectious/metabolic. CXR improved, BMP wnl. EKG with T inversion v1 - v3 c/w ischemia. Troponin with indeterminate elevation at 0.133 in the morning, improved to 0.083 at 1500 draw. D/W EMILIA Leonard for Dr. Barragan, who also consulted with Dr. Camara, Cardiology. Likely subendocardial leak related to elevated rate. * Flank pain, feeling hot 01/14/17. No infectious etiology on UA & CBC. BMP wnl. * Status post coronary artery bypass graft. He appears to be healing well. * Radial artery graft. Continue amlodipine to prevent radial artery spasm in the left wrist. * Sternal precautions x4 weeks (through 01/22/17) with no lifting greater than 10 pounds and avoiding pushing or pulling activities. * Wound care. Wounds may be left open to air, cleansed daily with soap and water and no creams or ointments to be used until scabs come off. * Cough without dyspnea. Chest x-ray 01/01/17 was improving. Continues to improve on CXR 01/03/17. Continue to monitor. * Postsurgical anemia. We will repeat a CBC in the morning to ensure stability. * Fluoxetine was initiated at 10 mg daily for neuro recovery and was to be titrated to 20 mg today 01/05/17 but he did not tolerating it with increased anxiety +/- akathisia; D/C'd 01/05/17. * Insomnia. D/C zolpidem and melatonin as they have not worked. Mirtazapine 7.5 mg 01/02/17 is not helping. Improved with quetiapine but panic morning of . Quetiapine + lorazepam have been effective. FOLLOW UP: Seen by Dr. Barragan, cardiothoracic surgeon, 01/15/17 on Inpatient Rehabilitation. Follow up with braider tender Dr. Gandhi and primary care provider, Dr. Raj Beard after discharge from inpatient rehabilitation. Tentative discharge of 02/13/17, depending on progress. Will need to be able to negotiate stairs. 01/28/17 13:24 Subjective: No complaints. Denies CP, dyspnea, cough, f/c. Objective: Vital Signs Temp Pulse Resp BP Pulse Ox 36.6 C 102 H 20 96/54 L 96 01/28/17 08:00 01/28/17 09:43 01/28/17 08:00 01/28/17 09:43 01/28/17 08:00 Laboratory Results 01/27/17 12:40 01/27/17 12:40 01/27/17 01/28/17 01/29/17 05:59 05:59 05:59 Intake Total 1054 736 200 Output Total 750 1400 Balance 304 -664 200 Physical Exam - Physical Exam General Appearance: WD/WN, alert, no apparent distress Respiratory: normal breath sounds, No crackles, No rhonchi, No wheezing Cardiac/Chest: regular rate, rhythm, No edema Skin: normal color, warm/dry Neuro/Psych: alert, normal mood/affect, oriented x 3 ICD10 Worksheet Patient Problems: Problems Problem Status Onset Hemiparesis Acute S/P AVR Acute S/P CABG x 3 Acute S/P aortic aneurysm repair Acute Unstable angina pectoris Acute Aortic aneurysm Chronic Bicuspid aortic valve Chronic
[2017-01-28] MEDS ORDERED: IOPAMIDOL (ISOVUE 370) 100 ML BTL IV ONE (12:41)
[2017-01-28] MEDS: QUEtiapine FUMARATE 50 MG TAB PO SCH (20:29)
[2017-01-28] MEDS: MIRTAZAPINE 15 MG TAB PO SCH (20:29)
[2017-01-28] MEDS: PATCH REMOVAL 1 EA PATCH TD SCH (22:41)
[2017-01-29] MEDS: amLODIPine BESYLATE 5 MG TAB PO SCH (09:15)
[2017-01-29] MEDS: ASPIRIN 81 MG CHEWABLE TAB PO SCH (09:16)
[2017-01-29] MEDS: ENOXAPARIN 40 MG/0.4 ML SYR SC SCH (09:17)
[2017-01-29] MEDS: ATORVASTATIN CALCIUM 20 MG TAB PO SCH (09:17)
[2017-01-29] MEDS: LIDOCAINE 5% 1 EA PATCH TD SCH (09:17)
[2017-01-29] MEDS: LORazepam 0.5 MG TAB PO SCH (09:18)
[2017-01-29] MEDS: METOPROLOL TARTRATE 25 MG TAB PO SCH ×2 (09:19→21:07)
[2017-01-29] MEDS: QUEtiapine FUMARATE 25 MG TAB PO SCH ×2 (09:20→14:15)
[2017-01-29] MEDS: SENNOSIDES/DOCUSATE SODIUM TAB PO SCH (09:21)
[2017-01-29] MEDS: POLYETHYLENE GLYCOL 3350 17 GM PKT PO PRN (09:23)
--- NOTE | 2017-01-29 11:47 | SOAPPROG ---
SOCAROLANN Progress Note Assessment/Plan: Assessment: 46-year-old male who had a perioperative stroke after a three vessel coronary artery bypass graft and aortic root replacement with right-sided weakness and left-sided flaccid paralysis. Multiple acute and subacute supratentorial infarcts more so on the right than on the left. 01/29/2017 60 minutes spent on the floor in the care of the patient, the majority of which was spent in the counseling and coordination of care regarding patient family conferences, team meetings, and discussion of neurological recovery with patient and family. Stopping scheduled lorazepam, continue quetiapine for now leaving on PRN lorazepam. Daily weights have been stable at about 85 kg, ranging from 82 to 85. Articulated AFO is working well. * Perioperative cerebrovascular accident on 12/26/16 with right-sided weakness and left-sided flaccid paralysis. Initial FIM 32 on 01/05/17; gain to 45 on 01/09, gain to 66 as of 01/15/17, 75 as of 01/22/17, and 80 as of 01/29. Currently standby assist for gait, as well as self-care and needing some cueing. Using a AFO and a hiking staff. Impairments still include proprioception impairments and left-sided eleanor inattention, Executive function.. Continue PT & OT to optimize mobility and activities of daily living. * Cognitive impairment with deficit to memory, problem solving and initiation. Continue Speech and Language Pathology. * Tachycardia, unclear etiology. Labs and studies from 01/27/17: EKG, CBC, BMP w /out significant abnormality. TSH slightly suppressed but T4 & free T3 wnl. D- dimer elevated. Chest CT today 01/28/17 without pulmonary embolus. Increased enoxaparin to treatment dose 01/27/17 evening; resume prophylactic dose. Will not need enoxaparin on discharge. * Subclinical hyperthyroidism. Recheck TSH in approximately 6 weeks, 03/11/17. * L shoulder pain/subluxation. Neuro sling per OT. Continue lidocaine patch , and oxycodone PRN. Improving. * Anemia, post-surgical, worse on blood draw 01/14/17. Reticulocyte count appropriately high; hemoccult stool negative X 3. Improved 01/27/17. * Anxiety/akathisia. D/C'd hydroxyzine 01/05/17 due to adverse effects of constipation and dry mouth. Appreciate the help of psychiatry. Begin taper of medications 01/21/17: change scheduled lorazepam to 0.125 mg BID and quetiapine to 25 mg BID + 50 mg at HS. stopped lorazepam scheduled on 01/29. * Constipation. Continue senna/docusate ordered from the hospital and Fleets enema and bisacodyl suppository are available as well. Added polyethylene glycol QD 01/03/17. Schedule bisacodyl suppository at 1730 to avoid bowel program during therapy times. * Blood pressure. On metoprolol 6.25 mg BID, and amlodipine 2.5 mg QD to prevent radial artery vasospasm per CT Surgery. Chronic/stable conditions: * Cardiac function status post surgery. He has been fluid resuscitated as well as diuresed after his surgery. He will have daily weights. D/C fluid restriction 01/05/17. * Tachycardia AM of 01/09/17. Panic vs cardiac/infectious/metabolic. CXR improved, BMP wnl. EKG with T inversion v1 - v3 c/w ischemia. Troponin with indeterminate elevation at 0.133 in the morning, improved to 0.083 at 1500 draw. D/W EMILIA Leonard for Dr. Barragan, who also consulted with Dr. Camara, Cardiology. Likely subendocardial leak related to elevated rate. * Flank pain, feeling hot 01/14/17. No infectious etiology on UA & CBC. BMP wnl. * Status post coronary artery bypass graft. He appears to be healing well. * Radial artery graft. Continue amlodipine to prevent radial artery spasm in the left wrist. * Sternal precautions x4 weeks (through 01/22/17) with no lifting greater than 10 pounds and avoiding pushing or pulling activities. * Wound care. Wounds may be left open to air, cleansed daily with soap and water and no creams or ointments to be used until scabs come off. * Cough without dyspnea. Chest x-ray 01/01/17 was improving. Continues to improve on CXR 01/03/17. Continue to monitor. * Postsurgical anemia. We will repeat a CBC in the morning to ensure stability. * Fluoxetine was initiated at 10 mg daily for neuro recovery and was to be titrated to 20 mg today 01/05/17 but he did not tolerating it with increased anxiety +/- akathisia; D/C'd 01/05/17. * Insomnia. D/C zolpidem and melatonin as they have not worked. Mirtazapine 7.5 mg 01/02/17 is not helping. Improved with quetiapine but panic morning of . Quetiapine + lorazepam have been effective. FOLLOW UP: Seen by Dr. Barragan, cardiothoracic surgeon, 01/15/17 on Inpatient Rehabilitation. Follow up with children's tutor Dr. Gandhi and primary care provider, Dr. Raj Beard after discharge from inpatient rehabilitation. LASHANDA 02/05/17. Will need to be able to negotiate stairs. 01/03/17 11:24 01/03/17 11:27 01/04/17 11:52 01/08/17 10:08 01/20/17 08:41 01/20/17 15:30 01/22/17 10:49 01/29/17 11:42 Subjective: CC: anxiety No acute events overnight. Patient endorses anxiety is much better, he did have one episode over the weekend where he became somewhat panicked when his was late, improved faster than treatise episodes. Otherwise he is interested in decreasing lorazepam and quetiapine. He denies any new shortness of breath, chest pain, numbness, tingling, or weakness. He endorses sleeping well. Please see notes from family conference and team staffing for full details of those encounters. Objective: Vital Signs Temp Pulse Resp BP Pulse Ox 37.2 C 91 16 103/63 94 01/29/17 08:00 01/29/17 09:19 01/29/17 08:00 01/29/17 09:19 01/29/17 08:00 Laboratory Results 01/27/17 12:40 01/27/17 12:40 01/28/17 01/29/17 01/30/17 05:59 05:59 05:59 Intake Total 736 1050 1180 Output Total 1400 1100 Balance -664 -50 1180 Physical Exam - Physical Exam General Appearance: WD/WN, alert, no apparent distress Respiratory: No accessory muscle use, No decreased breath sounds Cardiac/Chest: regular rate, rhythm Skin: normal color, warm/dry, No cyanosis Extremities: swelling, No pedal edema Neuro/Psych: alert, normal mood/affect ICD10 Worksheet Patient Problems: Problems Problem Status Onset Hemiparesis Acute S/P AVR Acute S/P CABG x 3 Acute S/P aortic aneurysm repair Acute Unstable angina pectoris Acute Aortic aneurysm Chronic Bicuspid aortic valve Chronic
[2017-01-29] MEDS: QUEtiapine FUMARATE 50 MG TAB PO SCH (21:08)
[2017-01-29] MEDS: MIRTAZAPINE 15 MG TAB PO SCH (21:08)
[2017-01-29] MEDS: PATCH REMOVAL 1 EA PATCH TD SCH (21:15)
[2017-01-30] MEDS: amLODIPine BESYLATE 5 MG TAB PO SCH (08:39)
[2017-01-30] MEDS: ASPIRIN 81 MG CHEWABLE TAB PO SCH (08:40)
[2017-01-30] MEDS: LIDOCAINE 5% 1 EA PATCH TD SCH (08:41)
[2017-01-30] MEDS: ATORVASTATIN CALCIUM 20 MG TAB PO SCH (08:41)
[2017-01-30] MEDS: METOPROLOL TARTRATE 25 MG TAB PO SCH ×2 (08:41→21:45)
[2017-01-30] MEDS: ENOXAPARIN 40 MG/0.4 ML SYR SC SCH (08:41)
[2017-01-30] MEDS: SENNOSIDES/DOCUSATE SODIUM TAB PO SCH (08:43)
[2017-01-30] MEDS: QUEtiapine FUMARATE 25 MG TAB PO SCH (08:43)
--- NOTE | 2017-01-30 12:58 | SOAPPROG ---
ROSALINDAP Progress Note Assessment/Plan: Assessment: 46-year-old male who had a perioperative stroke after a three vessel coronary artery bypass graft and aortic root replacement with right-sided weakness and left-sided flaccid paralysis. Multiple acute and subacute supratentorial infarcts more so on the right than on the left. 01/30/2017 doing very well, anxiety and pain are not issues this morning. Continue plan below, stopping daytime seroquel. * Perioperative cerebrovascular accident on 12/26/16 with right-sided weakness and left-sided flaccid paralysis. Initial FIM 32 on 01/05/17; gain to 45 on 01/09, gain to 66 as of 01/15/17, 75 as of 01/22/17, and 80 as of 01/29. Currently standby assist for gait, as well as self-care and needing some cueing. Using a AFO and a hiking staff. Impairments still include proprioception impairments and left-sided eleanor inattention, Executive function.. Continue PT & OT to optimize mobility and activities of daily living. * Cognitive impairment with deficit to memory, problem solving and initiation. Continue Speech and Language Pathology. * Tachycardia, unclear etiology. Labs and studies from 01/27/17: EKG, CBC, BMP w /out significant abnormality. TSH slightly suppressed but T4 & free T3 wnl. D- dimer elevated. Chest CT today 01/28/17 without pulmonary embolus. Increased enoxaparin to treatment dose 01/27/17 evening; resume prophylactic dose. Will not need enoxaparin on discharge. * L shoulder pain/subluxation. Neuro sling per OT. Continue lidocaine patch , and oxycodone PRN. Improving. * Anxiety/akathisia. D/C'd hydroxyzine 01/05/17 due to adverse effects of constipation and dry mouth. Appreciate the help of psychiatry. Begin taper of medications 01/21/17: change scheduled lorazepam to 0.125 mg BID and quetiapine to 25 mg BID + 50 mg at HS. stopped lorazepam scheduled on 01/29. Chronic/stable conditions: * Anemia, post-surgical, worse on blood draw 01/14/17. Reticulocyte count appropriately high; hemoccult stool negative X 3. Improved 01/27/17. * Subclinical hyperthyroidism. Recheck TSH in approximately 6 weeks, 03/11/17. * Constipation. Continue senna/docusate ordered from the hospital and Fleets enema and bisacodyl suppository are available as well. Added polyethylene glycol QD 01/03/17. Schedule bisacodyl suppository at 1730 to avoid bowel program during therapy times. * Blood pressure. On metoprolol 6.25 mg BID, and amlodipine 2.5 mg QD to prevent radial artery vasospasm per CT Surgery. * Cardiac function status post surgery. He has been fluid resuscitated as well as diuresed after his surgery. He will have daily weights. D/C fluid restriction 01/05/17. * Tachycardia AM of 01/09/17. Panic vs cardiac/infectious/metabolic. CXR improved, BMP wnl. EKG with T inversion v1 - v3 c/w ischemia. Troponin with indeterminate elevation at 0.133 in the morning, improved to 0.083 at 1500 draw. D/W EMILIA Leonard for Dr. Barragan, who also consulted with Dr. Camara, Cardiology. Likely subendocardial leak related to elevated rate. * Flank pain, feeling hot 01/14/17. No infectious etiology on UA & CBC. BMP wnl. * Status post coronary artery bypass graft. He appears to be healing well. * Radial artery graft. Continue amlodipine to prevent radial artery spasm in the left wrist. * Sternal precautions x4 weeks (through 01/22/17) with no lifting greater than 10 pounds and avoiding pushing or pulling activities. * Wound care. Wounds may be left open to air, cleansed daily with soap and water and no creams or ointments to be used until scabs come off. * Cough without dyspnea. Chest x-ray 01/01/17 was improving. Continues to improve on CXR 01/03/17. Continue to monitor. * Fluoxetine was initiated at 10 mg daily for neuro recovery and was to be titrated to 20 mg 01/05/17 but he did not tolerating it with increased anxiety + /- akathisia; D/C'd 01/05/17. * Insomnia. D/C zolpidem and melatonin as they have not worked. Mirtazapine 7.5 mg 01/02/17 is not helping. Improved with quetiapine but panic morning of . Quetiapine + lorazepam have been effective. FOLLOW UP: Seen by Dr. Barragan, cardiothoracic surgeon, 01/15/17 on Inpatient Rehabilitation. Follow up with gas line servicer Dr. Gandhi and primary care provider, Dr. Raj Beard after discharge from inpatient rehabilitation. LASHANDA 02/05/17. Will need to be able to negotiate stairs. 01/03/17 11:24 01/03/17 11:27 01/04/17 11:52 01/08/17 10:08 01/20/17 08:41 01/20/17 15:30 01/22/17 10:49 01/29/17 11:42 01/30/17 12:52 Subjective: CC: anxiety No acute events overnight. Patient is not anxious this morning, no pain. Denies any new fever, chills, night sweats, new numbness, tingling, or weakness , no chest pain or shortness of breath. Objective: Vital Signs Temp Pulse Resp BP Pulse Ox 37.0 C 102 H 18 99/68 L 93 01/29/17 20:00 01/30/17 08:41 01/29/17 20:00 01/30/17 08:41 01/29/17 20:00 Laboratory Results 01/27/17 12:40 01/27/17 12:40 01/29/17 01/30/17 01/31/17 05:59 05:59 05:59 Intake Total 1050 2700 400 Output Total 1100 250 Balance -50 2700 150 Physical Exam - Physical Exam General Appearance: WD/WN, alert, no apparent distress Respiratory: No respiratory distress, No accessory muscle use Cardiac/Chest: regular rate, rhythm, No edema Skin: normal color, warm/dry, No cyanosis Neuro/Psych: alert, normal mood/affect, other ( Ambulating with therapy in the hallway, able to bend over with contact guard assist and pepper picker an item from the floor.) ICD10 Worksheet Patient Problems: Problems Problem Status Onset Hemiparesis Acute S/P AVR Acute S/P CABG x 3 Acute S/P aortic aneurysm repair Acute Unstable angina pectoris Acute Aortic aneurysm Chronic Bicuspid aortic valve Chronic
[2017-01-30] MEDS: QUEtiapine FUMARATE 50 MG TAB PO SCH (21:45)
[2017-01-30] MEDS: MIRTAZAPINE 15 MG TAB PO SCH (21:45)
[2017-01-30] MEDS: PATCH REMOVAL 1 EA PATCH TD SCH (21:46)
[2017-01-31] MEDS: ENOXAPARIN 40 MG/0.4 ML SYR SC SCH (09:03)
[2017-01-31] MEDS: LIDOCAINE 5% 1 EA PATCH TD SCH (09:04)
[2017-01-31] MEDS: amLODIPine BESYLATE 5 MG TAB PO SCH (09:07)
[2017-01-31] MEDS: METOPROLOL TARTRATE 25 MG TAB PO SCH ×2 (09:08→20:27)
[2017-01-31] MEDS: ASPIRIN 81 MG CHEWABLE TAB PO SCH (09:09)
[2017-01-31] MEDS: ATORVASTATIN CALCIUM 20 MG TAB PO SCH (09:09)
[2017-01-31] MEDS: SENNOSIDES/DOCUSATE SODIUM TAB PO SCH (09:10)
[2017-01-31] MEDS ORDERED: QUEtiapine FUMARATE 50 MG TAB PO SCH (10:48)
[2017-01-31] MEDS ORDERED: LIDOCAINE 5% 1 EA PATCH TD PRN (10:48)
--- NOTE | 2017-01-31 11:33 | SOAPPROG ---
TANYA Progress Note Assessment/Plan: Assessment: 46-year-old male who had a perioperative stroke after a three vessel coronary artery bypass graft and aortic root replacement with right-sided weakness and left-sided flaccid paralysis. Multiple acute and subacute supratentorial infarcts more so on the right than on the left. 01/31/2017 doing very well, anxiety continues to be low. Changing lidocaine patch to PRN, decreasing Seroquel to 25 mg PO Q HS goal to stop tomorrow if tolerating. * Perioperative cerebrovascular accident on 12/26/16 with right-sided weakness and left-sided flaccid paralysis. Initial FIM 32 on 01/05/17; gain to 45 on 01/09, gain to 66 as of 01/15/17, 75 as of 01/22/17, and 80 as of 01/29. Currently standby assist for gait, as well as self-care and needing some cueing. Using a AFO and a hiking staff. Impairments still include proprioception impairments and left-sided eleanor inattention, Executive function.. Continue PT & OT to optimize mobility and activities of daily living. * Cognitive impairment with deficit to memory, problem solving and initiation. Continue Speech and Language Pathology. * Tachycardia, unclear etiology. Labs and studies from 01/27/17: EKG, CBC, BMP w /out significant abnormality. TSH slightly suppressed but T4 & free T3 wnl. D- dimer elevated. Chest CT today 01/28/17 without pulmonary embolus. Increased enoxaparin to treatment dose 01/27/17 evening; resume prophylactic dose. Will not need enoxaparin on discharge. * L shoulder pain/subluxation. Neuro sling per OT. Continue lidocaine patch , at PRN, and oxycodone PRN. Improving. * Anxiety/akathisia. D/C'd hydroxyzine 01/05/17 due to adverse effects of constipation and dry mouth. Appreciate the help of psychiatry. Begin taper of medications 01/21/17: change scheduled lorazepam to 0.125 mg BID and quetiapine to 25 mg BID + 50 mg at HS. stopped lorazepam scheduled on 01/29. Stop scheduled Seroquel yesterday, decreasing Seroquel to 25 mg PO QHS Chronic/stable conditions: * Anemia, post-surgical, worse on blood draw 01/14/17. Reticulocyte count appropriately high; hemoccult stool negative X 3. Improved 01/27/17. * Subclinical hyperthyroidism. Recheck TSH in approximately 6 weeks, 03/11/17. * Constipation. Continue senna/docusate ordered from the hospital and Fleets enema and bisacodyl suppository are available as well. Added polyethylene glycol QD 01/03/17. Schedule bisacodyl suppository at 1730 to avoid bowel program during therapy times. * Blood pressure. On metoprolol 6.25 mg BID, and amlodipine 2.5 mg QD to prevent radial artery vasospasm per CT Surgery. * Cardiac function status post surgery. He has been fluid resuscitated as well as diuresed after his surgery. He will have daily weights. D/C fluid restriction 01/05/17. * Tachycardia AM of 01/09/17. Panic vs cardiac/infectious/metabolic. CXR improved, BMP wnl. EKG with T inversion v1 - v3 c/w ischemia. Troponin with indeterminate elevation at 0.133 in the morning, improved to 0.083 at 1500 draw. D/W EMILIA Leonard for Dr. Barragan, who also consulted with Dr. Camara, Cardiology. Likely subendocardial leak related to elevated rate. * Flank pain, feeling hot 01/14/17. No infectious etiology on UA & CBC. BMP wnl. * Status post coronary artery bypass graft. He appears to be healing well. * Radial artery graft. Continue amlodipine to prevent radial artery spasm in the left wrist. * Sternal precautions x4 weeks (through 01/22/17) with no lifting greater than 10 pounds and avoiding pushing or pulling activities. * Wound care. Wounds may be left open to air, cleansed daily with soap and water and no creams or ointments to be used until scabs come off. * Cough without dyspnea. Chest x-ray 01/01/17 was improving. Continues to improve on CXR 01/03/17. Continue to monitor. * Fluoxetine was initiated at 10 mg daily for neuro recovery and was to be titrated to 20 mg 01/05/17 but he did not tolerating it with increased anxiety + /- akathisia; D/C'd 01/05/17. * Insomnia. D/C zolpidem and melatonin as they have not worked. Mirtazapine 7.5 mg 01/02/17 is not helping. Improved with quetiapine but panic morning of . Quetiapine + lorazepam have been effective. FOLLOW UP: Seen by Dr. Barragan, cardiothoracic surgeon, 01/15/17 on Inpatient Rehabilitation. Follow up with color printer operator Dr. Gandhi and primary care provider, Dr. Raj Beard after discharge from inpatient rehabilitation. LASHANDA 02/05/17. Will need to be able to negotiate stairs. 01/03/17 11:24 01/03/17 11:27 01/04/17 11:52 01/08/17 10:08 01/20/17 08:41 01/20/17 15:30 01/22/17 10:49 01/29/17 11:42 01/30/17 12:52 01/31/17 11:29 Subjective: CC: anxiety no acute events overnight. Patient continues to sleep well, no panic attacks. Feels anxiety level is low. Seroquel during the day was stopped yesterday. Participating long therapies, denies any shortness of breath, chest pain, fevers, chills, night sweats. Shoulder pain is much better as well, would like to make the lidocaine patch PRN Objective: Vital Signs Temp Pulse Resp BP Pulse Ox 37.1 C 91 16 93/65 L 94 01/31/17 07:56 01/31/17 07:56 01/31/17 07:56 01/31/17 07:56 01/31/17 07:56 Laboratory Results 01/27/17 12:40 01/27/17 12:40 01/30/17 01/31/17 02/01/17 05:59 05:59 05:59 Intake Total 2700 1585 720 Output Total 750 800 Balance 2700 835 -80 Physical Exam - Physical Exam General Appearance: WD/WN, alert, no apparent distress Respiratory: No respiratory distress, No accessory muscle use Cardiac/Chest: regular rate, rhythm, No edema Skin: normal color, warm/dry, No cyanosis Extremities: No pedal edema, No swelling Neuro/Psych: alert, normal mood/affect, other ( much brighter affect today. Left arm with 3/5 strength in the shoulder, 3/5 in the finger flexors, improving. Ambulating with a AFO and hiking stick, standby assist) ICD10 Worksheet Patient Problems: Problems Problem Status Onset Hemiparesis Acute S/P AVR Acute S/P CABG x 3 Acute S/P aortic aneurysm repair Acute Unstable angina pectoris Acute Aortic aneurysm Chronic Bicuspid aortic valve Chronic
[2017-01-31] MEDS: MIRTAZAPINE 15 MG TAB PO SCH (20:25)
[2017-01-31] MEDS: PATCH REMOVAL 1 EA PATCH TD SCH (20:41)
[2017-02-01] MEDS: ATORVASTATIN CALCIUM 20 MG TAB PO SCH (08:09)
[2017-02-01] MEDS: ENOXAPARIN 40 MG/0.4 ML SYR SC SCH (08:09)
[2017-02-01] MEDS: amLODIPine BESYLATE 5 MG TAB PO SCH (08:10)
[2017-02-01] MEDS: SENNOSIDES/DOCUSATE SODIUM TAB PO SCH (08:10)
[2017-02-01] MEDS: METOPROLOL TARTRATE 25 MG TAB PO SCH ×2 (08:10→21:04)
[2017-02-01] MEDS: ASPIRIN 81 MG CHEWABLE TAB PO SCH (08:10)
--- NOTE | 2017-02-01 11:05 | SOAPPROG ---
SOAP Progress Note Assessment/Plan: Assessment: 46-year-old male who had a perioperative stroke after a three vessel coronary artery bypass graft and aortic root replacement with right-sided weakness and left-sided flaccid paralysis. Multiple acute and subacute supratentorial infarcts more so on the right than on the left. 01/31/2017 Had another excellent night, participating well in therapies and noting neural recovery. No anxiety, stopping Seroquel at night * Perioperative cerebrovascular accident on 12/26/16 with right-sided weakness and left-sided flaccid paralysis. Initial FIM 32 on 01/05/17; gain to 45 on 01/09, gain to 66 as of 01/15/17, 75 as of 01/22/17, and 80 as of 01/29. Currently standby assist for gait, as well as self-care and needing some cueing. Using a AFO and a hiking staff. Impairments still include proprioception impairments and left-sided eleanor inattention, Executive function.. Continue PT & OT to optimize mobility and activities of daily living. * Cognitive impairment with deficit to memory, problem solving and initiation. Continue Speech and Language Pathology. * Tachycardia, unclear etiology. Labs and studies from 01/27/17: EKG, CBC, BMP w /out significant abnormality. TSH slightly suppressed but T4 & free T3 wnl. D- dimer elevated. Chest CT today 01/28/17 without pulmonary embolus. Increased enoxaparin to treatment dose 01/27/17 evening; resume prophylactic dose. Will not need enoxaparin on discharge. * L shoulder pain/subluxation. Neuro sling per OT. Continue lidocaine patch , at PRN, and oxycodone PRN. Improving. * Anxiety/akathisia. helped by Seroquel and lorazepam, now stopping Seroquel completely tonight 02/01 Chronic/stable conditions: * Anemia, post-surgical, worse on blood draw 01/14/17. Reticulocyte count appropriately high; hemoccult stool negative X 3. Improved 01/27/17. * Subclinical hyperthyroidism. Recheck TSH in approximately 6 weeks, 03/11/17. * Constipation. Continue senna/docusate ordered from the hospital and Fleets enema and bisacodyl suppository are available as well. Added polyethylene glycol QD 01/03/17. Schedule bisacodyl suppository at 1730 to avoid bowel program during therapy times. * Blood pressure. On metoprolol 6.25 mg BID, and amlodipine 2.5 mg QD to prevent radial artery vasospasm per CT Surgery. * Cardiac function status post surgery. He has been fluid resuscitated as well as diuresed after his surgery. He will have daily weights. D/C fluid restriction 01/05/17. * Tachycardia AM of 01/09/17. Panic vs cardiac/infectious/metabolic. CXR improved, BMP wnl. EKG with T inversion v1 - v3 c/w ischemia. Troponin with indeterminate elevation at 0.133 in the morning, improved to 0.083 at 1500 draw. D/W EMILIA Leonard for Dr. Barragan, who also consulted with Dr. Camara, Cardiology. Likely subendocardial leak related to elevated rate. * Flank pain, feeling hot 01/14/17. No infectious etiology on UA & CBC. BMP wnl. * Status post coronary artery bypass graft. He appears to be healing well. * Radial artery graft. Continue amlodipine to prevent radial artery spasm in the left wrist. * Sternal precautions x4 weeks (through 01/22/17) with no lifting greater than 10 pounds and avoiding pushing or pulling activities. * Wound care. Wounds may be left open to air, cleansed daily with soap and water and no creams or ointments to be used until scabs come off. * Cough without dyspnea. Chest x-ray 01/01/17 was improving. Continues to improve on CXR 01/03/17. Continue to monitor. * Fluoxetine was initiated at 10 mg daily for neuro recovery and was to be titrated to 20 mg 01/05/17 but he did not tolerating it with increased anxiety + /- akathisia; D/C'd 01/05/17. * Insomnia. D/C zolpidem and melatonin as they have not worked. Mirtazapine 7.5 mg 01/02/17 is not helping. Improved with quetiapine but panic morning of . Quetiapine + lorazepam have been effective. FOLLOW UP: Seen by Dr. Barragan, cardiothoracic surgeon, 01/15/17 on Inpatient Rehabilitation. Follow up with carpenter railcar Dr. Gandhi and primary care provider, Dr. Raj Beard after discharge from inpatient rehabilitation. LASHANDA 02/05/17. Will need to be able to negotiate stairs. 01/03/17 11:24 01/03/17 11:27 01/04/17 11:52 01/08/17 10:08 01/20/17 08:41 01/20/17 15:30 01/22/17 10:49 01/29/17 11:42 01/30/17 12:52 01/31/17 11:29 02/01/17 11:02 Subjective: CC: anxiety and neural recovery no acute events overnight. Patient endorsed that he slept very well, participating law therapies, and notes that he has trace dorsiflexion and improved plantarflexion on his left foot. Plan to stop Seroquel tonight, patient is in favor of that. No new chest pain, shortness of breath, numbness, tingling, or weakness. No new swelling. Objective: Vital Signs Temp Pulse Resp BP Pulse Ox 36.9 C 90 18 112/68 93 02/01/17 07:41 02/01/17 07:41 02/01/17 07:41 02/01/17 07:41 02/01/17 07:41 Laboratory Results 01/27/17 12:40 01/27/17 12:40 01/31/17 02/01/17 02/02/17 05:59 05:59 05:59 Intake Total 1585 1950 600 Output Total 750 2350 Balance 835 -400 600 Physical Exam - Physical Exam General Appearance: WD/WN, alert, no apparent distress Respiratory: No respiratory distress, No accessory muscle use Cardiac/Chest: regular rate, rhythm, No edema Skin: normal color, warm/dry, No cyanosis Extremities: No pedal edema, No swelling Neuro/Psych: alert, normal mood/affect, other ( 1/5 ankle dorsiflexion, improving strength and plantarflexion, 4/5 on manual muscle testing not functionally tested.) ICD10 Worksheet Patient Problems: Problems Problem Status Onset Hemiparesis Acute S/P AVR Acute S/P CABG x 3 Acute S/P aortic aneurysm repair Acute Unstable angina pectoris Acute Aortic aneurysm Chronic Bicuspid aortic valve Chronic
[2017-02-01] MEDS: MIRTAZAPINE 15 MG TAB PO SCH (21:04)
[2017-02-01] MEDS: PATCH REMOVAL 1 EA PATCH TD SCH (21:08)
[2017-02-02] MEDS: amLODIPine BESYLATE 5 MG TAB PO SCH (08:17)
[2017-02-02] MEDS: ATORVASTATIN CALCIUM 20 MG TAB PO SCH (08:18)
[2017-02-02] MEDS: ASPIRIN 81 MG CHEWABLE TAB PO SCH (08:18)
[2017-02-02] MEDS: METOPROLOL TARTRATE 25 MG TAB PO SCH ×2 (08:19→20:53)
[2017-02-02] MEDS: SENNOSIDES/DOCUSATE SODIUM TAB PO SCH (08:19)
[2017-02-02] MEDS: ENOXAPARIN 40 MG/0.4 ML SYR SC SCH (08:19)
--- NOTE | 2017-02-02 14:09 | SOAPPROG ---
SOAP Progress Note Assessment/Plan: Assessment: 46-year-old male who had a perioperative stroke after a three vessel coronary artery bypass graft and aortic root replacement with right-sided weakness and left-sided flaccid paralysis. Multiple acute and subacute supratentorial infarcts more so on the right than on the left. * Perioperative cerebrovascular accident on 12/26/16 with right-sided weakness and left-sided flaccid paralysis. Initial FIM 32 on 01/05/17; gain to 45 on 01/09, gain to 66 as of 01/15/17, 75 ad of 01/22/17, 80 as of 01/29/17. Has been advanced to I in room. Using a AFO and a hiking staff. Impairments still include proprioception impairments and left-sided eleanor inattention, Continue PT & OT to optimize mobility and activities of daily living. * Cognitive impairment with deficit to memory, problem solving and initiation. Continue Speech and Language Pathology. * Tachycardia, unclear etiology. Labs and studies from 01/27/17: EKG, CBC, BMP w /out significant abnormality. TSH slightly suppressed but T4 & free T3 wnl. D- dimer elevated. Chest CT 01/28/17 without pulmonary embolus. * Subclinical hyperthyroidism. Recheck TSH in approximately 6 weeks, 03/11/17. * L shoulder pain/subluxation. Neuro sling per OT. Continue lidocaine patch , and oxycodone PRN. Improving. * Anxiety/akathisia. D/C'd hydroxyzine 01/05/17 due to adverse effects of constipation and dry mouth. Appreciate the help of psychiatry. Much improved with scheduled low-dose quetiapine & lorazepam. Not using PRNs. Scheduled quetiapine and lorazepam have been d/C'd; not using PRN lorazepam. * Constipation. Continue senna/docusate ordered from the hospital and Fleets enema and bisacodyl suppository are available as well. Added polyethylene glycol QD 01/03/17. Schedule bisacodyl suppository at 1730 to avoid bowel program during therapy times. * Blood pressure. On metoprolol 6.25 mg BID, and amlodipine 2.5 mg QD to prevent radial artery vasospasm per CT Surgery. Chronic/stable conditions: * Cardiac function status post surgery. He has been fluid resuscitated as well as diuresed after his surgery. He will have daily weights. D/C fluid restriction 01/05/17. * Tachycardia AM of 01/09/17. Panic vs cardiac/infectious/metabolic. CXR improved, BMP wnl. EKG with T inversion v1 - v3 c/w ischemia. Troponin with indeterminate elevation at 0.133 in the morning, improved to 0.083 at 1500 draw. D/W EMILIA Leonard for Dr. Barragan, who also consulted with Dr. Camara, Cardiology. Likely subendocardial leak related to elevated rate. * Flank pain, feeling hot 01/14/17. No infectious etiology on UA & CBC. BMP wnl. * Status post coronary artery bypass graft. He appears to be healing well. * Radial artery graft. Continue amlodipine to prevent radial artery spasm in the left wrist. * Sternal precautions x4 weeks (through 01/22/17) with no lifting greater than 10 pounds and avoiding pushing or pulling activities. * Wound care. Wounds may be left open to air, cleansed daily with soap and water and no creams or ointments to be used until scabs come off. * Cough without dyspnea. Chest x-ray 01/01/17 was improving. Continues to improve on CXR 01/03/17. Continue to monitor. * Postsurgical anemia. We will repeat a CBC in the morning to ensure stability. * Fluoxetine was initiated at 10 mg daily for neuro recovery and was to be titrated to 20 mg today 01/05/17 but he did not tolerating it with increased anxiety +/- akathisia; D/C'd 01/05/17. * Insomnia. D/C zolpidem and melatonin as they have not worked. Mirtazapine 7.5 mg 01/02/17 is not helping. Improved with quetiapine but panic morning of . Quetiapine + lorazepam have been effective. FOLLOW UP: Seen by Dr. Barragan, cardiothoracic surgeon, 01/15/17 on Inpatient Rehabilitation. Follow up with [employer] Dr. Gandhi and primary care provider, Dr. Raj Beard after discharge from inpatient rehabilitation. Tentative discharge of 02/05/17, depending on progress. Will need to be able to negotiate stairs. 02/02/17 14:03 Subjective: No complaints. Says he is getting L foot movement returning. No f/c, cough/ dyspnea. Not feeling anxious. Objective: Vital Signs Temp Pulse Resp BP Pulse Ox 36.4 C 92 18 100/68 96 02/02/17 11:03 02/02/17 11:03 02/02/17 11:03 02/02/17 11:03 02/02/17 11:03 Laboratory Results 01/27/17 12:40 01/27/17 12:40 02/01/17 02/02/17 02/03/17 05:59 05:59 05:59 Intake Total 1950 1600 604 Output Total 2350 300 300 Balance -400 1300 304 Physical Exam - Physical Exam General Appearance: WD/WN, alert, no apparent distress Respiratory: normal breath sounds, No crackles, No rhonchi, No wheezing Cardiac/Chest: regular rate, rhythm, No edema Skin: normal color, warm/dry Neuro/Psych: alert, normal mood/affect, oriented x 3, motor weakness (LUE and LLE. Demonstrates slow effortful L foot dorsiflexion.) ICD10 Worksheet Patient Problems: Problems Problem Status Onset Hemiparesis Acute S/P AVR Acute S/P CABG x 3 Acute S/P aortic aneurysm repair Acute Unstable angina pectoris Acute Aortic aneurysm Chronic Bicuspid aortic valve Chronic
[2017-02-02] MEDS: MIRTAZAPINE 15 MG TAB PO SCH (20:53)
[2017-02-02] MEDS: PATCH REMOVAL 1 EA PATCH TD SCH (20:56)
--- NOTE | 2017-02-03 08:17 | SOAPPROG ---
[facility] Progress Note Assessment/Plan: Assessment: 46-year-old male who had a perioperative stroke after a three vessel coronary artery bypass graft and aortic root replacement with right-sided weakness and left-sided flaccid paralysis. Multiple acute and subacute supratentorial infarcts more so on the right than on the left. 02/03/2017 doing very well, making great progress in rehabilitation. Weights are stable at 85 kg. No issues with anxiety or panic attacks per his report, no reports from nursing. * Perioperative cerebrovascular accident on 12/26/16 with right-sided weakness and left-sided flaccid paralysis. Initial FIM 32 on 01/05/17; gain to 45 on 01/09, gain to 66 as of 01/15/17, 75 as of 01/22/17, and 80 as of 01/29. Currently standby assist for gait, as well as self-care and needing some cueing. Using a AFO and a hiking staff. Impairments still include proprioception impairments and left-sided eleanor inattention, Executive function. Continue PT & OT to optimize mobility and activities of daily living. * Cognitive impairment with deficit to memory, problem solving and initiation. Continue Speech and Language Pathology. * Tachycardia, unclear etiology. Labs and studies from 01/27/17: EKG, CBC, BMP w /out significant abnormality. TSH slightly suppressed but T4 & free T3 wnl. D- dimer elevated but Chest CT 01/28/17 without pulmonary embolus. Increased enoxaparin to treatment dose 01/27/17 evening; resume prophylactic dose. Will not need enoxaparin on discharge. * L shoulder pain/subluxation. Neuro sling per OT. Continue lidocaine patch , at PRN, and oxycodone PRN. Improved * Anxiety/akathisia. helped by Seroquel and lorazepam initially, now all scheduled seroquel and lorazepam have been stopped. No PRN ativan use. Chronic/stable conditions: * Anemia, post-surgical, worse on blood draw 01/14/17. Reticulocyte count appropriately high; hemoccult stool negative X 3. Improved 01/27/17. * Subclinical hyperthyroidism. Recheck TSH in approximately 6 weeks, 03/11/17. * Constipation. Continue senna/docusate ordered from the hospital and Fleets enema and bisacodyl suppository are available as well. Added polyethylene glycol QD 5/20/17. Schedule bisacodyl suppository at 1730 to avoid bowel program during therapy times. * Blood pressure. On metoprolol 6.25 mg BID, and amlodipine 2.5 mg QD to prevent radial artery vasospasm per CT Surgery. * Cardiac function status post surgery. He has been fluid resuscitated as well as diuresed after his surgery. He will have daily weights. D/C fluid restriction 01/05/17. * Tachycardia AM of 01/09/17. Panic vs cardiac/infectious/metabolic. CXR improved, BMP wnl. EKG with T inversion v1 - v3 c/w ischemia. Troponin with indeterminate elevation at 0.133 in the morning, improved to 0.083 at 1500 draw. D/W EMILIA Leonard for Dr. Barragan, who also consulted with Dr. Camara, Cardiology. Likely subendocardial leak related to elevated rate. * Flank pain, feeling hot 01/14/17. No infectious etiology on UA & CBC. BMP wnl. * Status post coronary artery bypass graft. He appears to be healing well. * Radial artery graft. Continue amlodipine to prevent radial artery spasm in the left wrist. * Sternal precautions x4 weeks (through 01/22/17) with no lifting greater than 10 pounds and avoiding pushing or pulling activities. * Wound care. Wounds may be left open to air, cleansed daily with soap and water and no creams or ointments to be used until scabs come off. * Cough without dyspnea. Chest x-ray 01/01/17 was improving. Continues to improve on CXR 01/03/17. Continue to monitor. * Fluoxetine was initiated at 10 mg daily for neuro recovery and was to be titrated to 20 mg 01/05/17 but he did not tolerating it with increased anxiety + /- akathisia; D/C'd 01/05/17. * Insomnia. D/C zolpidem and melatonin as they have not worked. Mirtazapine 7.5 mg 01/02/17 is not helping. Improved with quetiapine but panic morning of . Quetiapine + lorazepam have been effective. FOLLOW UP: Seen by Dr. Barragan, cardiothoracic surgeon, 01/15/17 on Inpatient Rehabilitation. Follow up with pediatric dermatologist Dr. Gandhi and primary care provider, Dr. Raj Beard after discharge from inpatient rehabilitation. LASHANDA 02/05/17. Will need to be able to negotiate stairs. 02/03/17 08:12 Subjective: CC: sleep and anxiety No acute events overnight. Patient sleeping well, no anxiety, no panic attacks. He feels that neurologically he is doing well, making great progress in rehabilitation. denies any shortness of breath or chest pain, any new numbness, tingling, or weakness. Objective: Vital Signs Temp Pulse Resp BP Pulse Ox 37.0 C 98 15 108/62 96 02/02/17 18:46 02/02/17 18:46 02/02/17 18:46 02/02/17 18:46 02/02/17 18:46 Laboratory Results 01/27/17 12:40 01/27/17 12:40 02/02/17 02/03/17 02/04/17 05:59 05:59 05:59 Intake Total 1600 840 Output Total 300 700 Balance 1300 140 Physical Exam - Physical Exam General Appearance: WD/WN, alert, no apparent distress Respiratory: No respiratory distress, No accessory muscle use Cardiac/Chest: regular rate, rhythm, No edema Skin: normal color, warm/dry, No cyanosis Neuro/Psych: alert, normal mood/affect, motor weakness (on left, Working with occupational therapy, standing in doing clipboard with left hand) ICD10 Worksheet Patient Problems: Problems Problem Status Onset Hemiparesis Acute S/P AVR Acute S/P CABG x 3 Acute S/P aortic aneurysm repair Acute Unstable angina pectoris Acute Aortic aneurysm Chronic Bicuspid aortic valve Chronic
[2017-02-03] MEDS: amLODIPine BESYLATE 5 MG TAB PO SCH (08:20)
[2017-02-03] MEDS: ENOXAPARIN 40 MG/0.4 ML SYR SC SCH (08:21)
[2017-02-03] MEDS: ASPIRIN 81 MG CHEWABLE TAB PO SCH (08:21)
[2017-02-03] MEDS: ATORVASTATIN CALCIUM 20 MG TAB PO SCH (08:21)
[2017-02-03] MEDS: SENNOSIDES/DOCUSATE SODIUM TAB PO SCH (08:21)
[2017-02-03] MEDS: METOPROLOL TARTRATE 25 MG TAB PO SCH ×2 (08:22→20:37)
[2017-02-03] MEDS: MIRTAZAPINE 15 MG TAB PO SCH (20:37)
[2017-02-03] MEDS: PATCH REMOVAL 1 EA PATCH TD SCH (21:41)
[2017-02-04] MEDS: amLODIPine BESYLATE 5 MG TAB PO SCH (08:13)
[2017-02-04] MEDS: METOPROLOL TARTRATE 25 MG TAB PO SCH ×2 (08:13→20:48)
[2017-02-04] MEDS: SENNOSIDES/DOCUSATE SODIUM TAB PO SCH (08:14)
[2017-02-04] MEDS: ASPIRIN 81 MG CHEWABLE TAB PO SCH (08:14)
[2017-02-04] MEDS: ENOXAPARIN 40 MG/0.4 ML SYR SC SCH (08:14)
[2017-02-04] MEDS: ATORVASTATIN CALCIUM 20 MG TAB PO SCH (08:14)
--- NOTE | 2017-02-04 10:35 | SOAPPROG ---
SOAP Progress Note Assessment/Plan: Assessment: 46-year-old male who had a perioperative stroke after a three vessel coronary artery bypass graft and aortic root replacement with right-sided weakness and left-sided flaccid paralysis. Multiple acute and subacute supratentorial infarcts more so on the right than on the left. * Perioperative cerebrovascular accident on 12/26/16 with right-sided weakness and left-sided flaccid paralysis. Initial FIM 32 on 01/05/17; gain to 45 on 01/09, gain to 66 as of 01/15/17, 75 ad of 01/22/17, 90 as of 01/29/17, 103 as of . Has been advanced to I in room. Using custom AFO and a hiking staff. I or mod I for ADLs though still benefits from supervision e.g with UB dressing. Impairments still include proprioception impairments and left-sided eleanor inattention, Continue PT & OT to optimize mobility and activities of daily living. * Cognitive impairment with residual deficits to initiation and follow- through. Continue Speech and Language Pathology. * Tachycardia, unclear etiology. Labs and studies from 01/27/17: EKG, CBC, BMP w /out significant abnormality. TSH slightly suppressed but T4 & free T3 wnl. D- dimer elevated. Chest CT 01/28/17 without pulmonary embolus. * Subclinical hyperthyroidism. Recheck TSH in approximately 6 weeks, 03/11/17. * L shoulder pain/subluxation. Resolved. * Anxiety/akathisia. D/C'd hydroxyzine 01/05/17 due to adverse effects of constipation and dry mouth. Appreciate the help of psychiatry. Much improved with scheduled low-dose quetiapine & lorazepam. Not using PRNs. Scheduled quetiapine and lorazepam have been d/C'd; not using PRN lorazepam. * Constipation. Continue senna/docusate ordered from the hospital and Fleets enema and bisacodyl suppository are available as well. Added polyethylene glycol QD 01/03/17. Schedule bisacodyl suppository at 1730 to avoid bowel program during therapy times. * Blood pressure. On metoprolol 6.25 mg BID, and amlodipine 2.5 mg QD to prevent radial artery vasospasm per CT Surgery. Chronic/stable conditions: * Cardiac function status post surgery. He has been fluid resuscitated as well as diuresed after his surgery. He will have daily weights. D/C fluid restriction 01/05/17. * Tachycardia AM of 01/09/17. Panic vs cardiac/infectious/metabolic. CXR improved, BMP wnl. EKG with T inversion v1 - v3 c/w ischemia. Troponin with indeterminate elevation at 0.133 in the morning, improved to 0.083 at 1500 draw. D/W EMILIA Leonard for Dr. Barragan, who also consulted with Dr. Camara, Cardiology. Likely subendocardial leak related to elevated rate. * Flank pain, feeling hot 01/14/17. No infectious etiology on UA & CBC. BMP wnl. * Status post coronary artery bypass graft. He appears to be healing well. * Radial artery graft. Continue amlodipine to prevent radial artery spasm in the left wrist. * Sternal precautions x4 weeks (through 01/22/17) with no lifting greater than 10 pounds and avoiding pushing or pulling activities. * Wound care. Wounds may be left open to air, cleansed daily with soap and water and no creams or ointments to be used until scabs come off. * Cough without dyspnea. Chest x-ray 01/01/17 was improving. Continues to improve on CXR 01/03/17. Continue to monitor. * Postsurgical anemia. We will repeat a CBC in the morning to ensure stability. * Fluoxetine was initiated at 10 mg daily for neuro recovery and was to be titrated to 20 mg today 01/05/17 but he did not tolerating it with increased anxiety +/- akathisia; D/C'd 01/05/17. * Insomnia. D/C zolpidem and melatonin as they have not worked. Mirtazapine 7.5 mg 01/02/17 is not helping. Improved with quetiapine but panic morning of . Quetiapine + lorazepam have been effective. Attended staffing, 15 min. D/W case mgmt, nursing, PT, OT, CONVERSION MAN, clinical research monitor. Home visit went well; needs 2nd rail on stairs to upper level; otherwise home is prepared for him. Discharge tomorrow 02/05/17 with . Outpatient PT, OT & CONVERSION MAN. FOLLOW UP: Seen by Dr. Barragan, cardiothoracic surgeon, 01/15/17 on Inpatient Rehabilitation. Follow up with contract associate Dr. Gandhi and primary care provider, Dr. Raj Beard after discharge from inpatient rehabilitation. 02/02/17 14:03 02/04/17 10:36 Subjective: No complaints. Ready to go home tomorrow. R shoulder pain has resolved with improved movement, and has been using lidocaine patch or oxycodone. Denies anxiety and not using PRN lorazepam. Objective: Vital Signs Temp Pulse Resp BP Pulse Ox 36.3 C 95 16 103/68 98 02/04/17 07:06 02/04/17 08:13 02/04/17 07:06 02/04/17 08:13 02/04/17 07:06 Laboratory Results 01/27/17 12:40 01/27/17 12:40 02/03/17 02/04/17 02/05/17 05:59 05:59 05:59 Intake Total 840 748 400 Output Total 700 250 Balance 140 498 400 Physical Exam - Physical Exam General Appearance: WD/WN, alert, no apparent distress Respiratory: normal breath sounds, No crackles, No rhonchi, No wheezing Cardiac/Chest: regular rate, rhythm, other (prominent P2), No edema Skin: normal color, warm/dry Neuro/Psych: alert, normal mood/affect, oriented x 3, abnormal gait (Slow, with trekking pole, L AFO, narrow-base.) ICD10 Worksheet Patient Problems: Problems Problem Status Onset Hemiparesis Acute S/P AVR Acute S/P CABG x 3 Acute S/P aortic aneurysm repair Acute Unstable angina pectoris Acute Aortic aneurysm Chronic Bicuspid aortic valve Chronic
[2017-02-04] MEDS: MIRTAZAPINE 15 MG TAB PO SCH (20:48)
[2017-02-04] MEDS: PATCH REMOVAL 1 EA PATCH TD SCH (20:50)
--- NOTE | 2017-02-05 07:55 | PDOREHIP ---
Admission [facility] - Admission - 3 Day Assessment Period Admission Date/Day 1: 01/01/17 Day 2: 01/02/17 Day 3: 01/03/17 Discharge [facility] - Discharge - 3 Day Assessment Period 2 Days Prior to Anticipated Discharge Date: 02/11/17 1 Day Prior to Anticipated Discharge Date: 02/12/17 Anticipated Discharge Date: 02/13/17 - Discharge Skin Conditions Unhealed Pressure Ulcer (1 or more/Stage 1 or >)-Discharge: 0. No
[2017-02-05 08:01] VITALS: BP 104/66; PULSE 92; RESP 18; TEMP 97.5; O2SAT 96
[2017-02-05] MEDS: SENNOSIDES/DOCUSATE SODIUM TAB PO SCH (08:08)
[2017-02-05] MEDS: amLODIPine BESYLATE 5 MG TAB PO SCH (08:08)
[2017-02-05] MEDS: ATORVASTATIN CALCIUM 20 MG TAB PO SCH (08:08)
[2017-02-05] MEDS: ASPIRIN 81 MG CHEWABLE TAB PO SCH (08:08)
[2017-02-05] MEDS: METOPROLOL TARTRATE 25 MG TAB PO SCH (08:08)
--- NOTE | 2017-02-05 09:30 | PDDCSUM ---
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 Electrocardiogram 01/27/2017 showed sinus tachycardia. Chest x-ray from 01/09/2017 showed stable cardiomegaly and poor inspiration with compressive changes at the lung bases Consultations: psychiatry, Dr. Edward (for anxiety), wound care, PT, OT, speech therapy, social work History of Present Illness: please see the history and physical by Dr. Crespo dated 01/01/2017 for full details, but briefly this is a 47-year-old male with coronary artery disease who underwent a three vessel coronary artery bypass graft as an aortic root replacement as well as ligation of an atrial appendage on 12/26/2014, complicated by perioperative stroke with infarcts in the right and left hemispheres, right greater than left involving motor areas. After medical stabilization he was found to have global impairments in function and qualified for inpatient rehabilitation. He was admitted to inpatient rehab on . Hospital Course: the initial hospital course was complicated by significant anxiety and panic, for which we obtained a psychiatry consultation. The patient responded well to scheduled Seroquel and Ativan, and these were eventually weaned and discontinued. After that time he made excellent functional progress, initially had a functional independence measure of 32, and was up to 103 as of . He has been independent in his room ambulating with a custom articulated AFO and a hiking staff in his right hand. He has been independent or modified independence for ADLs though requiring some supervision with upper body dressing. He still has some mild impairments in proprioception and left- sided eleanor inattention. He has residual deficits in initiation and follow- through. From a medical perspective, the patient had tachycardia with unclear etiology but had negative CT of the chest looking for pulmonary embolus. He did have an elevated D dimer. He is also noted to have subclinical hyperthyroidism, with a recommended recheck of his thyroid function in late February. His course was complicated by left-sided shoulder pain, likely related to subluxation from hemiplegia, but this greatly improved and in fact completely resolved. He is maintained on low dose of metoprolol status post coronary artery bypass graft as well as amlodipine for radial artery basal spasm prevention, but otherwise his blood pressures have been fairly low. We monitored postsurgical anemia without intervention. He was started on fluoxetine, 20 mg per day for neural recovery but he did not tolerate it because of increased anxiety and this was stopped. This could be considered as an outpatient. Condition: As described above, he has been independent in his room ambulating with a custom articulated AFO and a hiking staff in his right hand. He has been independent or modified independence for ADLs though requiring some supervision with upper body dressing. He still has some mild impairments in proprioception and left-sided eleanor inattention. He has residual deficits in initiation and follow-through. Disposition: home with outpatient physical therapy, occupational therapy, speech therapy. Discharge Medications: Amlodipine 2.5 mg PO daily calcium carbonate 500 mg PO TID PRN metoprolol 6.25 mg PO BID mirtazapine 15 mg PO QHS polyethylene glycol 17 g PO daily PRN Senna/docusate one tab PO daily melatonin 3 mg PO Q HS acetaminophen 325 to 650 mg PO Q4 hours PRN aspirin 81 mg PO daily atorvastatin 20 mg PO daily Discharge Instructions: weight bearing as tolerated, sternal precautions have been lifted. Wounds may be left open to air. Patient will need assistance with some IADLs, should not be driving, and should have assistance in his return to work planning. Patient should go to the emergency department for new onset chest pain, or new neurological changes. Will be following up with primary care and cardiothoracic surgery after discharge. Pending Studies: none Recommendations: thyroid function tests as of 03/11/2017, CBC at that time to ensure resolution of anemia Follow-up: Follow-up with Dr. Barragan (CT surgery), Dr. Gandhi (Cardiology) and Dr. Beard (PCP) after discharge. His providers may choose to refer him to a PMR specialist or neurologist for further stroke management. Day of discharge: discussed discharge plan with patient and answered any questions. Vital signs were temperature of 36.4, blood pressure 104/66, pulse of 92, respirations 18, with oxygen saturation 96% on room air. He was ambulating with a left-sided AFO, articulated, and a hiking staff in the right hand. His heart had a regular rate and rhythm, intact pulses on the right wrist. He was breathing comfortably on room air, no increase worker breathing. He was alert and attentive, left arm weakness was proximally 4/5 compared to the right side, with decreased coordination. On the left leg, he had approximate 4/5 strength in most muscle groups except for ankle dorsiflexion which was 1/5. He had no evidence of neglect on double simultaneous stimulation at the hands, intact visual murguia on gross bedside testing.
== END 2017-02-05 12:45 | disposition home or self-care (01) | DRG 57 ==
LOC: BREH 13:33
PROVIDERS: ADMIT Internal Medicine; ATTEND Internal Medicine
DX: I69.354 Hemiplegia and hemiparesis following cerebral infarction affecting left non-dominant side (principal); I69.351 Hemiplegia and hemiparesis following cerebral infarction affecting right dominant side; I25.10 Atherosclerotic heart disease of native coronary artery without angina pectoris; I69.391 Dysphagia following cerebral infarction; G47.00 Insomnia, unspecified; K59.00 Constipation, unspecified; Z95.1 Presence of aortocoronary bypass graft; E02 Subclinical iodine-deficiency hypothyroidism; R00.0 Tachycardia, unspecified; M25.512 Pain in left shoulder; F41.9 Anxiety disorder, unspecified
CPT/HCPCS: 84481-90; 92507-GN; 92522-GN; 92526-GN; 92610-GN; 97110-GO; 97110-GP; 97112-GO; 97112-GP; 97116-GP; 97140-GO; 97162-GP; 97167-GO; 97530-GO; 97530-GP; 97532-GO; 97535-GO; 99366-GO; J1650; Q9967